=== PATIENT | male | born 1980 | race Two or more races ===

== ENCOUNTER 2019-12-10 17:25 | Inpatient (IN) | payer SELFPAY ==
[~2019-12-10] VITALS: Ht 172.7 cm; Wt 83.0 kg
[2019-12-10] MEDS ORDERED: Succinylcholine 20mg/ml 10ml vial ONE (17:57)
[2019-12-10] MEDS ORDERED: Etomidate 40mg/20ml Inj IV ONE (17:57)
[2019-12-10] MEDS ORDERED: Azithromycin 500 MG in NS 275 ML IV ONE (18:00)
[2019-12-10] MEDS ORDERED: cefTRIAXone 1 GM in NS 55 ML IVPB ONE (18:00)
--- NOTE | 2019-12-10 18:43 | NUR ---
ED Nurse Note: KATELYN VO- -COUSIN
[2019-12-10 18:49] LABS: INR 1.3 (0.9-1.1)
[2019-12-10 19:55] LABS: APPEARANCE,URINE CLEAR; BILIRUBIN, URINE NEGATIVE (NEGATIVE); GLUCOSE, URINE (UA) NEGATIVE (NEGATIVE); KETONES,URINE NEGATIVE (NEGATIVE); LEUKOCYTE ESTERASE ,URINE 1+ (NEGATIVE); NITRITE,URINE NEGATIVE (NEGATIVE); PH,URINE 5 (4.5-8.0); PROTEIN,URINE 2+ (NEGATIVE); UROBILINOGEN,URINE 4 MG/DL (0.0-1.0)
[2019-12-10 20:00] VITALS: BP_SYST 8; BP_SYST 88; BP_DIAS 65
--- NOTE | 2019-12-10 20:00 | NUR ---
ED Nurse Note: patient received in bed with respiratory distress. patient confused and restless; pulled out alarm security or surveillance monitor. removed clothing and changed into gown; attached to monitor. ermd and respiratory at bedside for intubation. ett 7.5 24cm at the lip; ac 16; tv 600; peep 10; fio2 100%. called radiology for imaging. suctioned 200 ml of blood; ermd aware. sedation initiated per ermd order. pt + 2 RASS; per ermd infusion set to 50mcg/kg/min; noted and carried out. all safety measures met. will continue to monitor.
[2019-12-10 20:11] LABS: COLOR,URINE YELLOW
--- NOTE | 2019-12-10 20:22 | Emergency Room Report ---
History of Present Illness General Chief Complaint: Dyspnea/Respdistress Source: Patient, Family Member, EMS Present Illness HPI Patient presents by paramedics for shortness of breath and confusion A bystander and which sounds to be possibly a neighbor saw the patient acting confused and appeared weak and paramedics summoned upon arrival the patient does appear confused Is able to have limited discussion given his shortness of breath and acute distress upon presentation I did contact the phone number provided for the patient's family the father did answer and we also spoke with translation He reports the patient has been sick for over the past 2 weeks Unknown regarding fever unknown regarding vomiting or diarrhea History of present illness is significantly limited Allergies: Coded Allergies: UNABLE TO ASSESS (Unverified , 12/10/19) COVID-19 Screening Contact w/high risk pt: No Recent Travel to affected area: No Experienced COVID-19 symptoms?: Yes COVID-19 symptoms experienced: Shortness of Breath, Cough, Flu-Like Symptoms Patient History Past Medical History: see triage record Reviewed Nursing Documentation: PMH: Agreed; PSxH: Agreed Nursing Documentation-PMH Past Medical History Deferred: No Family Available Past Medical History: Deferred Review of Systems All Other Systems: limited - Other than the ones mentioned in the history of present illness all others are reviewed however they do stay limited due to the patient's mental status Physical Exam Vital Signs Date Time Temp Pulse Resp B/P (MAP) Pulse Ox O2 Delivery O2 Flow Rate FiO2 12/10/19 17:28 96.3 130 35 112/60 (77) 94 Non-Rebreather 15.0 Sp02 EP Interpretation: reviewed, normal General Appearance: severe distress - Short of breath and confused Head: normocephalic, atraumatic Eyes: bilateral eye PERRL, bilateral eye EOMI ENT: other - Brown material dried crusting around the oral mucosa Neck: supple Respiratory: crackles - Tachypneic with respiratory distress and accessory muscle use Cardiovascular #1: tachycardia Gastrointestinal: non tender, soft Musculoskeletal: normal inspection Neurologic: responsive - Responsive with eyes open however it does appear confused pulling at IV lines and looking around the room Skin: other - What appears to be possible psoriasis in both lower legs Lymphatic: no adenopathy Procedures Critical Care Time Critical Care Time 70 minutes for multiple re-evaluations critical presentation concerning for acute decompensation and possible not including any procedural time Intubation Intubation : Consent: Emergent Intubation Method: orotracheal Tube Size (cm): 7.5 Medications: Etomidate, Succinylcholine Breath Sounds after Intubation: equal Post Intubation Xray: Yes Attempts: One Patient Tolerated: Well Complications: None Medical Decision Making Diagnostic Impression: Primary Impression: Respiratory failure Additional Impressions: Pneumonia COVID-19 virus infection ER Course Patient is a fairly complex patient with multiple differential to consideration including but not limited to cardiac cardiopulmonary and vascular emergencies given the patient's presentation covid-19 Also considered highly patient's x-ray does show concerning findings of bilateral patchy infiltrates Patient remained severely hypoxic Decision was made to intubate the patient for further ventilation Please refer to the intubation note for that Patient saturations have significantly improved Patient's initial x-ray after the intubation shows that the ET tube is somewhat high in the airway The ET tube is tied down at 24 cm This will be advanced and another x-ray taken X-ray shows ET tube about 2 cm above juan Patient continues admission in critical condition with poor prognosis Labs Test 12/10/19 17:28 12/10/19 17:45 12/10/19 19:30 12/10/19 21:00 Arterial Blood pH 7.334 (7.350-7.450) Arterial Blood Partial Pressure CO2 27.4 mmHg (35.0-45.0) Arterial Blood Partial Pressure O2 56.4 mmHg (75.0-100.0) Arterial Blood HCO3 14.3 mmol/L (22.0-26.0) Arterial Blood Oxygen Saturation 84.0 % (95-100) Arterial Blood Base Excess -10.1 (-2-2) Guzman Test Positive Prothrombin Time 13.8 SEC (9.30-11.50) Prothromb Time International Ratio 1.3 (0.9-1.1) Activated Partial Thromboplast Time 28 SEC (23-33) Sodium Level 128 MMOL/L (136-145) Potassium Level 4.9 MMOL/L (3.5-5.1) Chloride Level 90 MMOL/L (98-107) Carbon Dioxide Level 14 MMOL/L (21-32) Anion Gap 24 mmol/L (5-15) Blood Urea Nitrogen 90 mg/dL (7-18) Creatinine 2.6 MG/DL (0.55-1.30) Estimat Glomerular Filtration Rate 27.8 mL/min (>60) Glucose Level 1247 MG/DL (74-106) Lactic Acid Level 9.60 mmol/L (0.4-2.0) 4.70 mmol/L (0.66-2.22) Calcium Level 8.0 MG/DL (8.5-10.1) Total Bilirubin 2.4 MG/DL (0.2-1.0) Direct Bilirubin 1.6 MG/DL (0.0-0.3) Aspartate Amino Transf (AST/SGOT) 40 U/L (15-37) Alanine Aminotransferase (ALT/SGPT) 36 U/L (12-78) Alkaline Phosphatase 110 U/L (46-116) Total Creatine Kinase 184 U/L (26-308) Creatine Kinase MB 2.4 NG/ML (0.0-3.6) Creatine Kinase MB Relative Index 1.3 Troponin I 0.000 ng/mL (0.000-0.056) Pro-B-Type Natriuretic Peptide 328 pg/mL (0-125) Total Protein 7.4 G/DL (6.4-8.2) Albumin 2.5 G/DL (3.4-5.0) Globulin 4.9 g/dL Albumin/Globulin Ratio 0.5 (1.0-2.7) Triglycerides Level 329 MG/DL (30-150) Urine Color Yellow Urine Appearance Clear Urine pH 5 (4.5-8.0) Urine Specific [place] 1.005 (1.005-1.035) Urine Protein 2+ (NEGATIVE) Urine Glucose (UA) Negative (NEGATIVE) Urine Ketones Negative (NEGATIVE) Urine Blood 3+ (NEGATIVE) Urine Nitrite Negative (NEGATIVE) Urine Bilirubin Negative (NEGATIVE) Urine Urobilinogen 4 MG/DL (0.0-1.0) Urine Leukocyte Esterase 1+ (NEGATIVE) Urine RBC 30-40 /HPF (0 - 0) Urine WBC 2-4 /HPF (0 - 0) Urine Squamous Epithelial Cells None /LPF (NONE/OCC) Urine Bacteria Occasional /HPF (NONE) Urine Opiates Screen Negative (NEGATIVE) Urine Barbiturates Screen Negative (NEGATIVE) Phencyclidine (PCP) Screen Negative (NEGATIVE) Urine Amphetamines Screen Negative (NEGATIVE) Urine Benzodiazepines Screen Positive (NEGATIVE) Urine Cocaine Screen Negative (NEGATIVE) Urine Marijuana (THC) Screen Negative (NEGATIVE) White Blood Count 9.6 K/UL (4.8-10.8) Red Blood Count 3.04 M/UL (4.70-6.10) Hemoglobin 9.8 G/DL (14.2-18.0) Hematocrit 27.6 % (42.0-52.0) Mean Corpuscular Volume 91 FL (80-99) Mean Corpuscular Hemoglobin 32.3 PG (27.0-31.0) Mean Corpuscular Hemoglobin Concent 35.6 G/DL (32.0-36.0) Red Cell Distribution Width 15.0 % (11.6-14.8) Platelet Count 20 K/UL (150-450) Mean Platelet Volume 9.4 FL (6.5-10.1) Neutrophils (%) (Auto) % (45.0-75.0) Lymphocytes (%) (Auto) % (20.0-45.0) Monocytes (%) (Auto) % (1.0-10.0) Eosinophils (%) (Auto) % (0.0-3.0) Basophils (%) (Auto) % (0.0-2.0) Differential Total Cells Counted 100 Neutrophils % (Manual) 24 % (45-75) Lymphocytes % (Manual) 58 % (20-45) Monocytes % (Manual) 18 % (1-10) Eosinophils % (Manual) 0 % (0-3) Basophils % (Manual) 0 % (0-2) Band Neutrophils 0 % (0-8) Platelet Estimate Decreased Platelet Morphology Normal Hypochromasia 1+ Anisocytosis 1+ D-Dimer > 35.20 mg/L FEU Hemoglobin A1c 11.9 % (4.3-6.0) Test 12/10/19 22:05 12/11/19 05:54 12/11/19 08:02 12/11/19 08:40 Arterial Blood pH 7.246 (7.350-7.450) 7.420 (7.350-7.450) Arterial Blood Partial Pressure CO2 42.0 mmHg (35.0-45.0) 33.8 mmHg (35.0-45.0) Arterial Blood Partial Pressure O2 84.6 mmHg (75.0-100.0) 286.5 mmHg (75.0-100.0) Arterial Blood HCO3 17.8 mmol/L (22.0-26.0) 21.4 mmol/L (22.0-26.0) Arterial Blood Oxygen Saturation 92.4 % (95-100) 98.2 % (95-100) Arterial Blood Base Excess -8.9 (-2-2) -2.5 (-2-2) Guzman Test Positive Positive White Blood Count 8.4 K/UL (4.8-10.8) Red Blood Count 3.03 M/UL (4.70-6.10) Hemoglobin 9.6 G/DL (14.2-18.0) Hematocrit 25.7 % (42.0-52.0) Mean Corpuscular Volume 85 FL (80-99) Mean Corpuscular Hemoglobin 31.6 PG (27.0-31.0) Mean Corpuscular Hemoglobin Concent 37.2 G/DL (32.0-36.0) Red Cell Distribution Width 13.5 % (11.6-14.8) Platelet Count 8 K/UL (150-450) Mean Platelet Volume 14.9 FL (6.5-10.1) Neutrophils (%) (Auto) % (45.0-75.0) Lymphocytes (%) (Auto) % (20.0-45.0) Monocytes (%) (Auto) % (1.0-10.0) Eosinophils (%) (Auto) % (0.0-3.0) Basophils (%) (Auto) % (0.0-2.0) Differential Total Cells Counted 100 Neutrophils % (Manual) 15 % (45-75) Lymphocytes % (Manual) 47 % (20-45) Monocytes % (Manual) 16 % (1-10) Eosinophils % (Manual) 1 % (0-3) Basophils % (Manual) 0 % (0-2) Blast Cells % 21 % (0-0) Band Neutrophils 0 % (0-8) Other Cell Type See comment Platelet Estimate Decreased Platelet Morphology Normal Sodium Level 154 MMOL/L (136-145) Potassium Level 4.3 MMOL/L (3.5-5.1) Chloride Level 118 MMOL/L (98-107) Carbon Dioxide Level 22 MMOL/L (21-32) Anion Gap 14 mmol/L (5-15) Blood Urea Nitrogen 63 mg/dL (7-18) Creatinine 1.2 MG/DL (0.55-1.30) Estimat Glomerular Filtration Rate > 60 mL/min (>60) Glucose Level 141 MG/DL (74-106) Calcium Level 7.8 MG/DL (8.5-10.1) Total Bilirubin 1.0 MG/DL (0.2-1.0) Aspartate Amino Transf (AST/SGOT) 38 U/L (15-37) Alanine Aminotransferase (ALT/SGPT) 31 U/L (12-78) Alkaline Phosphatase 85 U/L (46-116) Total Protein 6.2 G/DL (6.4-8.2) Albumin 2.1 G/DL (3.4-5.0) Globulin 4.1 g/dL Albumin/Globulin Ratio 0.5 (1.0-2.7) Lactic Acid Level 2.10 mmol/L (0.4-2.0) Test 12/11/19 12:50 12/12/19 03:47 12/12/19 08:35 12/12/19 09:30 Reticulocyte Count 0.9 % (0.5-2.0) Sickle Cell Screen Negative (Negative) Prothrombin Time 12.1 SEC (9.30-11.50) Prothromb Time International Ratio 1.1 (0.9-1.1) Sodium Level 158 MMOL/L (136-145) 146 MMOL/L (136-145) Potassium Level 4.6 MMOL/L (3.5-5.1) 4.4 MMOL/L (3.5-5.1) Chloride Level 123 MMOL/L (98-107) 115 MMOL/L (98-107) Carbon Dioxide Level 19 MMOL/L (21-32) 22 MMOL/L (21-32) Anion Gap 16 mmol/L (5-15) 9 mmol/L (5-15) Blood Urea Nitrogen 54 mg/dL (7-18) 39 mg/dL (7-18) Creatinine 1.1 MG/DL (0.55-1.30) 1.1 MG/DL (0.55-1.30) Estimat Glomerular Filtration Rate > 60 mL/min (>60) > 60 mL/min (>60) Glucose Level 143 MG/DL (74-106) 317 MG/DL (74-106) Uric Acid 5.4 MG/DL (2.6-7.2) 2.4 MG/DL (2.6-7.2) Calcium Level 7.6 MG/DL (8.5-10.1) 8.0 MG/DL (8.5-10.1) Phosphorus Level 1.8 MG/DL (2.5-4.9) 3.0 MG/DL (2.5-4.9) Magnesium Level 2.9 MG/DL (1.8-2.4) 2.8 MG/DL (1.8-2.4) Iron Level 92 ug/dL (50-175) Total Iron Binding Capacity 100 ug/dL (250-450) Percent Iron Saturation 92 % (15-50) Unsaturated Iron Binding 8 ug/dL (112-346) Ferritin > 2000 NG/ML (8-388) Total Bilirubin 1.1 MG/DL (0.2-1.0) 1.7 MG/DL (0.2-1.0) Direct Bilirubin 0.0 MG/DL (0.0-0.3) 1.5 MG/DL (0.0-0.3) Gamma Glutamyl Transpeptidase 63 U/L (5-85) Aspartate Amino Transf (AST/SGOT) 40 U/L (15-37) 46 U/L (15-37) Alanine Aminotransferase (ALT/SGPT) 30 U/L (12-78) 30 U/L (12-78) Alkaline Phosphatase 75 U/L (46-116) 72 U/L (46-116) Lactate Dehydrogenase 979 U/L (81-234) Troponin I 0.033 ng/mL (0.000-0.056) C-Reactive Protein, Quantitative 41.8 mg/dL (0.00-0.90) Pro-B-Type Natriuretic Peptide 224 pg/mL (0-125) Total Protein 5.7 G/DL (6.4-8.2) 5.9 G/DL (6.4-8.2) Albumin 2.0 G/DL (3.4-5.0) 1.8 G/DL (3.4-5.0) Globulin 3.7 g/dL Albumin/Globulin Ratio 0.5 (1.0-2.7) Triglycerides Level 391 MG/DL (30-150) 432 MG/DL (30-150) Cholesterol Level 138 MG/DL (< 200) LDL Cholesterol 65 mg/dL (<100) HDL Cholesterol 12 MG/DL (40-60) Cholesterol/HDL Ratio 11.5 (3.3-4.4) Lipase 44 U/L (73-393) Vitamin B12 Level > 2000 PG/ML (193-986) Folate 4.7 NG/ML (8.6-58.9) Thyroid Stimulating Hormone (TSH) 0.562 uiU/mL (0.358-3.740) Hepatitis A IgM Antibody Negative (Negative) Hepatitis B Surface Antigen Negative (Negative) Hepatitis B Core IgM Antibody Negative (Negative) Hepatitis C Antibody <0.1 s/co ratio White Blood Count 6.5 K/UL (4.8-10.8) 5.7 K/UL (4.8-10.8) Red Blood Count 2.55 M/UL (4.70-6.10) 2.41 M/UL (4.70-6.10) Hemoglobin 8.2 G/DL (14.2-18.0) 7.7 G/DL (14.2-18.0) Hematocrit 22.5 % (42.0-52.0) 20.9 % (42.0-52.0) Mean Corpuscular Volume 88 FL (80-99) 87 FL (80-99) Mean Corpuscular Hemoglobin 32.2 PG (27.0-31.0) 31.8 PG (27.0-31.0) Mean Corpuscular Hemoglobin Concent 36.5 G/DL (32.0-36.0) 36.6 G/DL (32.0-36.0) Red Cell Distribution Width 14.5 % (11.6-14.8) 13.8 % (11.6-14.8) Platelet Count 8 K/UL (150-450) 22 K/UL (150-450) Mean Platelet Volume 15.4 FL (6.5-10.1) 5.4 FL (6.5-10.1) Neutrophils (%) (Auto) % (45.0-75.0) % (45.0-75.0) Lymphocytes (%) (Auto) % (20.0-45.0) % (20.0-45.0) Monocytes (%) (Auto) % (1.0-10.0) % (1.0-10.0) Eosinophils (%) (Auto) % (0.0-3.0) % (0.0-3.0) Basophils (%) (Auto) % (0.0-2.0) % (0.0-2.0) Differential Total Cells Counted 100 100 Neutrophils % (Manual) 23 % (45-75) 27 % (45-75) Lymphocytes % (Manual) 35 % (20-45) 33 % (20-45) Monocytes % (Manual) 17 % (1-10) 18 % (1-10) Eosinophils % (Manual) 0 % (0-3) 0 % (0-3) Basophils % (Manual) 0 % (0-2) 0 % (0-2) Blast Cells % 25 % (0-0) 22 % (0-0) Band Neutrophils 0 % (0-8) 0 % (0-8) Nucleated Red Blood Cells 4 /100 WBC Platelet Estimate Decreased Decreased Platelet Morphology Normal Normal Hypochromasia 2+ 3+ Anisocytosis 1+ 1+ Macrocytosis HIV (1&2) Antibody Rapid Negative (NEGATIVE) Spherocytes 2+ Arterial Blood pH 7.420 (7.350-7.450) Arterial Blood Partial Pressure CO2 33.0 mmHg (35.0-45.0) Arterial Blood Partial Pressure O2 72.0 mmHg (75.0-100.0) Arterial Blood HCO3 21.0 mmol/L (22.0-26.0) Arterial Blood Oxygen Saturation 92.5 % (95-100) Arterial Blood Base Excess -3.1 (-2-2) Guzman Test Positive Test 12/12/19 09:35 12/13/19 04:00 Fibrinogen 406 mg/dL (200-400) White Blood Count 16.0 K/UL (4.8-10.8) Red Blood Count 2.55 M/UL (4.70-6.10) Hemoglobin 8.0 G/DL (14.2-18.0) Hematocrit 22.8 % (42.0-52.0) Mean Corpuscular Volume 89 FL (80-99) Mean Corpuscular Hemoglobin 31.5 PG (27.0-31.0) Mean Corpuscular Hemoglobin Concent 35.2 G/DL (32.0-36.0) Red Cell Distribution Width 14.4 % (11.6-14.8) Platelet Count 22 K/UL (150-450) Mean Platelet Volume 8.2 FL (6.5-10.1) Neutrophils (%) (Auto) % (45.0-75.0) Lymphocytes (%) (Auto) % (20.0-45.0) Monocytes (%) (Auto) % (1.0-10.0) Eosinophils (%) (Auto) % (0.0-3.0) Basophils (%) (Auto) % (0.0-2.0) Differential Total Cells Counted 100 Neutrophils % (Manual) 13 % (45-75) Lymphocytes % (Manual) 28 % (20-45) Monocytes % (Manual) 27 % (1-10) Eosinophils % (Manual) 0 % (0-3) Basophils % (Manual) 0 % (0-2) Metamyelocytes % 2 % (0-0) Myelocytes % 2 % (0-0) Blast Cells % 27 % (0-0) Band Neutrophils 1 % (0-8) Platelet Estimate Decreased Platelet Morphology Normal Red Blood Cell Morphology Normal Sodium Level 144 MMOL/L (136-145) Potassium Level 4.9 MMOL/L (3.5-5.1) Chloride Level 112 MMOL/L (98-107) Carbon Dioxide Level 23 MMOL/L (21-32) Anion Gap 9 mmol/L (5-15) Blood Urea Nitrogen 36 mg/dL (7-18) Creatinine 1.2 MG/DL (0.55-1.30) Estimat Glomerular Filtration Rate > 60 mL/min (>60) Glucose Level 213 MG/DL (74-106) Calcium Level 8.0 MG/DL (8.5-10.1) Phosphorus Level 5.1 MG/DL (2.5-4.9) Magnesium Level 2.7 MG/DL (1.8-2.4) Total Bilirubin 1.7 MG/DL (0.2-1.0) Direct Bilirubin 1.6 MG/DL (0.0-0.3) Aspartate Amino Transf (AST/SGOT) 57 U/L (15-37) Alanine Aminotransferase (ALT/SGPT) 25 U/L (12-78) Alkaline Phosphatase 78 U/L (46-116) Lactate Dehydrogenase 868 U/L (81-234) C-Reactive Protein, Quantitative 133.0 mg/dL (0.00-0.90) Pro-B-Type Natriuretic Peptide 743 pg/mL (0-125) Total Protein 6.4 G/DL (6.4-8.2) Albumin 1.7 G/DL (3.4-5.0) Globulin 4.7 g/dL Albumin/Globulin Ratio 0.4 (1.0-2.7) Rhythm Strip Diag. Results EP Interpretation: yes Rate: 120 Rhythm: no PVC's, no ectopy, other - sinus Tach Chest X-Ray Diagnostic Results Chest X-Ray Diagnostic Results #1: Chest X-Ray Ordered: Yes # of Views/Limited/Complete: 1 View Indication: Shortness of Breath EP Interpretation: Yes Interpretation: no effusion, other - Bilateral patchy infiltrates heart size normal Impression: Other - Bilateral patchy infiltrates Electronically Signed by: Marc Benítez DO Chest X-Ray Diagnostic Results #2: Chest X-Ray Ordered: Yes # of Views/Limited/Complete: 1 View Indication: Other - Tube placement EP Interpretation: Yes Interpretation: other - ET tube approximately 2 cm above juan just below the clavicle worsening patchy infiltrates heart size normal Impression: Other - ET tube 2 cm above juan just below the clavicle Electronically Signed by: Marc Benítez DO Last Vital Signs Date Time Temp Pulse Resp B/P (MAP) Pulse Ox O2 Delivery O2 Flow Rate FiO2 12/10/19 17:28 96.3 130 35 112/60 (77) 94 Non-Rebreather 15.0 Status: improved Disposition: ADMITTED INPATIENT Condition: Critical Referrals: NOT CHOSEN IPA/,REFERRING (PCP) Marc Benítez DO Dec 10, 2019 20:22
[2019-12-10 20:36] LABS: ANION GAP 24 mmol/L (5-15); BLOOD UREA NITROGEN 90 mg/dL (7-18); CARBON DIOXIDE 14 MMOL/L (21-32); CHLORIDE 90 MMOL/L (98-107); CREATININE 2.6 MG/DL (0.55-1.30); POTASSIUM 4.9 MMOL/L (3.5-5.1); SODIUM 128 MMOL/L (136-145)
[2019-12-10 20:45] LABS: ALANINE AMINOTRANSFERASE 36 U/L (12-78); ALBUMIN 2.5 G/DL (3.4-5.0); ALBUMIN/GLOBULIN RATIO 0.5 (1.0-2.7); ALKALINE PHOSPHATASE 110 U/L (46-116); ASPARTATE AMINO TRANSFERASE 40 U/L (15-37); BILIRUBIN,TOTAL 2.4 MG/DL (0.2-1.0); CKMB 2.4 NG/ML (0.0-3.6); CREATINE KINASE 184 U/L (26-308)
[2019-12-10 20:46] LABS: BILIRUBIN,DIRECT 1.6 MG/DL (0.0-0.3)
--- NOTE | 2019-12-10 20:50 | Diagnostic Imaging Report ---
EXAM: XR Chest, 1 View CLINICAL HISTORY: SOB TECHNIQUE: Frontal view of the chest. COMPARISON: No relevant prior studies available. FINDINGS: Lungs: Reduced lung volumes and bilateral pulmonary infiltrates. Pleural space: Unremarkable. No pneumothorax. Heart: Unremarkable. No cardiomegaly. Mediastinum: Unremarkable. Bones/joints: No acute fracture. Tubes, lines and devices: Endotracheal tube at the level of the clavicular heads, roughly 5.5 cm above the juan. Other findings: Single view 12/10/19 at 2015. IMPRESSION: 1. Endotracheal tube at the level of the clavicular heads, roughly 5.5 cm above the juan. 2. Reduced lung volumes and bilateral pulmonary infiltrates. <MYCVCSECTION> Communications: 12/10/19 20:57 Call Nurse NEGRITO Martinez
[2019-12-10 21:00] VITALS: BP 127/67
--- NOTE | 2019-12-10 21:00 | NUR ---
ED Nurse Note: Adjusted ett per initial xray confirmation ett at 26cm; 2nd xray comfirmation ordered; radiology notified. vent setting remain the same. Accucheck bg critical high; notified ermd. administered insulin as prescribed. Initial labs hemolyzed; redrew labs; blood, MRSA VRE CRE swab collected; sent down to lab. belongings list completed.
[2019-12-10] MEDS ORDERED: Insulin Human Regular 100units/ml 3ml IV ONE (21:15)
[2019-12-10] MEDS ORDERED: Insulin Human Regular 100units/ml 3ml IV PRN ×2 (21:30)
[2019-12-10] MEDS ORDERED: Insulin Reg 100 units Premix 100 ML IV SCH (21:30)
[2019-12-10] MEDS ORDERED: Insulin Rate Change 1 Each MISC PRN (21:30)
--- NOTE | 2019-12-10 21:41 | Diagnostic Imaging Report ---
EXAM: XR Chest, 1 View CLINICAL HISTORY: TUBE PLCNC TECHNIQUE: Frontal view of the chest. COMPARISON: Earlier film FINDINGS: Lungs: Reduced lung volumes with extensive bilateral infiltrates. Pleural space: Unremarkable. No pneumothorax. Heart: Unremarkable. No cardiomegaly. Mediastinum: Unremarkable. Bones/joints: No acute fracture. Tubes, lines and devices: Endotracheal tube is approximately 2 cm above the juan. Other findings: Single view 12/10/19 at 2110. IMPRESSION: 1. Endotracheal tube is approximately 2 cm above the juan. 2. Reduced lung volumes with extensive bilateral infiltrates.
[2019-12-10 22:00] VITALS: BP 105/56
--- NOTE | 2019-12-10 22:00 | NUR ---
ED Nurse Note: 2nd confirmation states ett in accurate placement. accucheck bg critical high; notified ermd. initiated insulin drip as prescribed. patient rass -1; notified ermd. order received for ativan 2 mg ivp; noted and carried out. patient tolerating vent settings. vitals stable. all safety measures met. will continue to monitor.
[2019-12-10] MEDS ORDERED: Insulin Reg 100 units Premix 100 ML IVPB SCH (22:05)
[2019-12-10 22:25] LABS: HEMATOCRIT 27.6 % (42.0-52.0); HEMOGLOBIN 9.8 G/DL (14.2-18.0); MEAN CORPUSCULAR VOLUME 91 FL (80-99); PLATELET COUNT 20 K/UL (150-450); RED BLOOD COUNT 3.04 M/UL (4.70-6.10); WHITE BLOOD COUNT 9.6 K/UL (4.8-10.8)
[2019-12-10] MEDS ORDERED: LORazepam Inj 2mg/ml 1ml ONE (22:44)
[2019-12-10] MEDS ORDERED: LORazepam Inj 2mg/ml 1ml IV ONE (22:45)
[2019-12-10 23:00] VITALS: BP_SYST 104; BP_SYST 105; BP_DIAS 56; BP_DIAS 57
--- NOTE | 2019-12-10 23:00 | NUR ---
ED Nurse Note: received report from Deandre Lazaro RN. will resume care of patient.
--- NOTE | 2019-12-10 23:00 | NUR ---
ED Nurse Note: INSULIN DRIP AT 12UNIT/HR WITH ACCUCHECK BS 562. WILL CONTINUE TO MAINTAIN AT THIS RATE PER PROTOCOL.
--- NOTE | 2019-12-10 23:00 | NUR ---
HAND-OFF: Report given to NEGRITO CAPPS. Endorsed pending admission and sedation orders.
--- NOTE | 2019-12-10 23:00 | NUR ---
ED Nurse Note: RECEIVED ORDERS ADMITTING/BRIDING ORDERS FROM DR. TAYLOR. INFORMED DR. WILL CARRY OUT ORDERS
[2019-12-10 23:32] VITALS: BP 103/59
--- NOTE | 2019-12-10 23:32 | NUR ---
ED Nurse Note: second bag of propofol drip initiated. Pt BP 103/59 and RAAS score of -2 at start of drip. will continue to monitor patient.
[2019-12-10 23:47] VITALS: BP 114/55
--- NOTE | 2019-12-10 23:47 | NUR ---
ED Nurse Note: pt raas score remains at -2 and bp is maintained at 114/55. will continue drip rate at 50 mcg/kg/min
[2019-12-11] VITALS (62 sets, daily range): BP systolic 99–195; BP diastolic 40–99
--- NOTE | 2019-12-11 | NUR ---
ED Nurse Note: PT BS 556. WILL CONTINUE THE INSULIN DRIP AT 12UNIT/HR.
[2019-12-11] MEDS: Versed 50mg/D5W 100ml 100 ML IV SCH ×2 (00:08→23:05)
--- NOTE | 2019-12-11 00:08 | NUR ---
ED Nurse Note: VERSED DRIP INITIATED AT 1MG/HR. PROPOFOL DRIP TITRATED DOWN TO 25 MCG/KG/MIN. RAAS SCORE OF -2 AND BP OF 104/59 AT CHANGE OF RATE.
--- NOTE | 2019-12-11 00:38 | NUR ---
ED Nurse Note: PT IS TOLERATING PROPOFOL AT 25 MCG/KG/MIN AND VERSED 1MG/HR WITH RAAS SCORE OF -2 AND BP AT 100/57. WILL CONTINUE TO MONITOR PATIENT.
--- NOTE | 2019-12-11 01:00 | NUR ---
ED Nurse Note: PT BS 547. WILL MAINTAIN THE RATE AT 12UNIT/HR.
[2019-12-11] MEDS ORDERED: Insulin Human Regular 100units/ml 3ml IV PRN (01:15)
--- NOTE | 2019-12-11 01:50 | NUR ---
ED Nurse Note: GAVE REPORT TO ANIL MAHAN. ENDORSED CARE OF PATIENT.
--- NOTE | 2019-12-11 01:53 | NUR ---
ED Nurse Note: PT RAAS SCORE AT -2 WITH BP 114/58. WILL MAINTAIN PROPOFOL AT 25MCG/KG/MIN AND VERSED 1MG/HR
[2019-12-11] MEDS ORDERED: Insulin Rate Change 1 Each MISC PRN ×2 (02:00→04:30)
--- NOTE | 2019-12-11 02:00 | NUR ---
NURSE NOTES: pt admit from er pt sedated dep drip 25mcg /kg/hr and versed drip at 1mg/hr and insulin drip at 12unit with bs 560 pt oral intubated with o2 sat 100 0/0 temp 98.5 and reposition and suction
--- NOTE | 2019-12-11 02:00 | NUR ---
TRANSFER TO FLOOR: Patient transferred to [facility] via transport 19 protocol with propofol drip at 25mcg/kg/min, versed drip at 1mg/hr, insulin drip at 12 unit/hr in stable condition as ordered, per dr. Ly. RT was called for vent detachment. Pt was manually vented during transport in stable condition. Patient is AAOx0. Report given to Ethel MAHAN. Belongings sent with patient.
[2019-12-11] MEDS: Insulin Reg 100 units Premix 100 ML IVPB SCH ×2 (02:28→03:37)
[2019-12-11] MEDS: Insulin Human Regular 100units/ml 3ml IV PRN ×2 (02:30→03:22)
--- NOTE | 2019-12-11 04:00 | NUR ---
NURSE NOTES: complete bed bath oral care and back care done
[2019-12-11] MEDS ORDERED: Insulin Reg 100 units Premix 100 ML IVPB SCH (04:30)
--- NOTE | 2019-12-11 06:00 | NUR ---
NURSE NOTES: pt on insulin drip at 4unit with bs 157 algo r 3 and drip drip 50mcg/kg/hr and versed drip at 1mg/hr
[2019-12-11 07:54] LABS: HEMATOCRIT 25.7 % (42.0-52.0); HEMOGLOBIN 9.6 G/DL (14.2-18.0); MEAN CORPUSCULAR VOLUME 85 FL (80-99); RED BLOOD COUNT 3.03 M/UL (4.70-6.10); RED CELL DISTRIBUTION WIDTH 13.5 % (11.6-14.8); WHITE BLOOD COUNT 8.4 K/UL (4.8-10.8)
--- NOTE | 2019-12-11 08:01 | NUR ---
HAND-OFF: Report given to yogesh mcgill using sbar.
--- NOTE | 2019-12-11 08:02 | NUR ---
NURSE NOTES: Late entry: PT and report received from NEGRITO Carlson; PT received intubated ETT 7.5 @ 26 R-lip, AC 16, TV 600, 100%, peep 10; tachypnea respiratory rate; counselling psychologist shows ST; PT received on sedation to a RASS -2; PIV L-AC 18g infusing diprovan @ 50mcg/kg/min; R-AC 20g infusing versed @ 1mg/hr and insulin @ 4ml/hr; skin issues noted on abd/chest/legs; jarquin intact draining patent at lowest position, PT has L-NGT KUB results pending; received on bilateral soft wrist restraints. Will continue to monitor PT.
[2019-12-11 08:17] LABS: ALANINE AMINOTRANSFERASE 31 U/L (12-78); ALBUMIN 2.1 G/DL (3.4-5.0); ALBUMIN/GLOBULIN RATIO 0.5 (1.0-2.7); ALKALINE PHOSPHATASE 85 U/L (46-116); ANION GAP 14 mmol/L (5-15); ASPARTATE AMINO TRANSFERASE 38 U/L (15-37); BLOOD UREA NITROGEN 63 mg/dL (7-18); CALCIUM 7.8 MG/DL (8.5-10.1); CARBON DIOXIDE 22 MMOL/L (21-32); CHLORIDE 118 MMOL/L (98-107); CREATININE 1.2 MG/DL (0.55-1.30); POTASSIUM 4.3 MMOL/L (3.5-5.1); SODIUM 154 MMOL/L (136-145)
--- NOTE | 2019-12-11 08:25 | NUR ---
NURSE NOTES: Late entry: Actual administered 25ml Dextrose as prescribed, but eMAR scanned by mistake was documented as 50ml dextrose. Confirmed with PharmD to unadminister 50ml and notate it in PT notes. Will continue with plan of care for PT.
--- NOTE | 2019-12-11 08:38 | Diagnostic Imaging Report ---
Indication: Shortness of breath Technique: XRAY Chest 1v Comparison: None Findings: Extensive interstitial and patchy, peripheral based opacities are noted. Heart size within normal limits for AP technique. No radiographically appreciable pleural effusion or pneumothorax. Osseous structures demonstrate no acute abnormality. Impression: Extensive interstitial and patchy bilateral airspace opacities. Findings are concerning for multifocal pneumonia, including atypical/viral pneumonia. This corresponds with the preliminary interpretation of the treating ER clinician, as documented in the electronic medical record. Patient is being ruled out for novel COVID-19 virus, as documented in the electronic medical record
[2019-12-11] MEDS ORDERED: Hydroxychloroquine Fact Sheet MISC SCH (09:00)
[2019-12-11 09:04] LABS: PLATELET COUNT 8 K/UL (150-450)
--- NOTE | 2019-12-11 09:04 | Diagnostic Imaging Report ---
Indication: Nasogastric intubation. Check line position Technique: XRAY Abdomen 1v Comparison: None Findings: Single frontal view the abdomen was obtained. NG tube tip projects over the expected region of the stomach, satisfactory in position. Bowel gas pattern is nonspecific. No differential air-fluid levels seen to suggest small bowel obstruction. No evidence to suggest free intraperitoneal air however sensitivity in evaluation for such is limited without inclusion of an erect/standing view. No acute osseous abnormality. Question hepatomegaly. Airspace disease is partially visualized in the lower lungs. IMPRESSION: Satisfactory positioning of NG tube, the tip projecting over the expected region of the proximal stomach. Additional findings as above.
--- NOTE | 2019-12-11 09:31 | Consultation ---
Consult Note Consult Note I was asked to evaluate the patient at the request of Dr. Hawkins for fluid and electrolyte management, and renal failure Patient was seen at 7 AM in ICU room G Patient evaluated, discussed with the nurse Record reviewed Emergency room note: Chief Complaint: Dyspnea/Respdistress HPI Patient presents by paramedics for shortness of breath and confusion A bystander and which sounds to be possibly a neighbor saw the patient acting confused and appeared weak and paramedics summoned upon arrival the patient does appear confused Is able to have limited discussion given his shortness of breath and acute distress upon presentation ER physician did contact the phone number provided for the patient's family the father did answer and we also spoke with translation He reports the patient has been sick for over the past 2 weeks Unknown regarding fever unknown regarding vomiting or diarrhea History of present illness is significantly limited Allergies: UNABLE TO ASSESS (Unverified , 12/10/19) Contact w/high risk pt: No Recent Travel to affected area: No Experienced COVID-19 symptoms?: Yes COVID-19 symptoms experienced: Shortness of Breath, Cough, Flu-Like Symptoms Assessment/Plan Acute renal failure mainly dehydration due to osmotic diuresis Acute respiratory failure, intubated on mechanical ventilation Acute hyperglycemia, Acute metabolic and toxic encephalopathy Hyponatremia due to hyperglycemia Anemia Hypoalbuminemia, proteinuria High bilirubin on admission Pulmonary support Hydration, half-normal saline 100 cc an hour IV Protonix NG tube insertion Blood sugar and blood pressure check- Monitor renal parameters Per pulmonary and ID Anemia work-up Per orders Delvin Miller MD Dec 11, 2019 09:31
--- NOTE | 2019-12-11 09:36 | NUR ---
NURSE NOTES: MD Jerrica called; updates given that PT last BS 174, currently on algorithm 2, orders given to go into PT room Q2H for accucheck. KIERRA Brown made aware.
--- NOTE | 2019-12-11 09:43 | Consultation ---
History of Present Illness General Chief Complaint: Dyspnea/Respdistress Present Illness Allergies: Coded Allergies: UNABLE TO ASSESS (Unverified , 12/10/19) Patient History Healthcare decision maker Resuscitation status Advanced Directive on File Physical Exam Last 24 Hour Vital Signs Date Time Temp Pulse Resp B/P (MAP) Pulse Ox O2 Delivery O2 Flow Rate FiO2 12/11/19 08:11 18 141/70 Endotracheal Tube 100 12/11/19 07:25 113 20 50 12/11/19 07:00 111 27 108/53 100 Mechanical Ventilator 100 12/11/19 07:00 18 Mechanical Ventilator 100 12/11/19 07:00 20 112/45 Mechanical Ventilator 100.0 12/11/19 06:30 109 27 110/62 100 Mechanical Ventilator 100 12/11/19 06:30 110 28 12/11/19 06:00 111 28 101/52 100 Mechanical Ventilator 100 12/11/19 06:00 18 Mechanical Ventilator 100 12/11/19 06:00 22 110/52 Mechanical Ventilator 100 12/11/19 05:30 99.5 111 28 101/52 100 Mechanical Ventilator 100 12/11/19 05:00 111 27 100 12/11/19 05:00 111 28 101/52 100 Mechanical Ventilator 100 12/11/19 05:00 27 Mechanical Ventilator 100 12/11/19 05:00 27 109/57 Mechanical Ventilator 100 12/11/19 04:30 110 29 115/54 100 Mechanical Ventilator 100 12/11/19 04:00 100 12/11/19 04:00 98.9 110 30 112/54 100 Mechanical Ventilator 100 12/11/19 04:00 29 100 12/11/19 04:00 29 100 12/11/19 04:00 29 100 12/11/19 04:00 29 100 12/11/19 04:00 29 100 12/11/19 04:00 29 100 12/11/19 04:00 29 Mechanical Ventilator 100 12/11/19 04:00 29 100 12/11/19 04:00 29 100 12/11/19 04:00 29 114/51 Mechanical Ventilator 100 12/11/19 04:00 29 115/54 Mechanical Ventilator 100 12/11/19 04:00 29 115/54 Mechanical Ventilator 100 12/11/19 04:00 29 115/54 Mechanical Ventilator 100 12/11/19 04:00 29 115/54 Mechanical Ventilator 100 12/11/19 04:00 29 115/54 Mechanical Ventilator 100 12/11/19 04:00 29 115/54 Mechanical Ventilator 100 12/11/19 04:00 29 115/54 Mechanical Ventilator 100 12/11/19 04:00 29 115/54 Mechanical Ventilator 100 12/11/19 04:00 Mechanical Ventilator 100.0 12/11/19 04:00 105 12/11/19 03:30 108 29 125/58 100 Mechanical Ventilator 100 12/11/19 03:18 22 125/58 Mechanical Ventilator 100 12/11/19 03:18 26 125/58 Mechanical Ventilator 100 12/11/19 03:15 110 30 125/58 100 Mechanical Ventilator 100 12/11/19 03:03 26 128/71 Mechanical Ventilator 100 12/11/19 03:03 29 128/71 Mechanical Ventilator 100 12/11/19 03:00 108 29 128/71 100 Mechanical Ventilator 100 12/11/19 03:00 111 28 100 12/11/19 03:00 29 Mechanical Ventilator 100 12/11/19 03:00 29 Mechanical Ventilator 100 12/11/19 03:00 29 Mechanical Ventilator 100 12/11/19 03:00 29 Mechanical Ventilator 100 12/11/19 03:00 29 Mechanical Ventilator 100 12/11/19 03:00 29 Mechanical Ventilator 100 12/11/19 03:00 29 Mechanical Ventilator 100 12/11/19 03:00 29 Mechanical Ventilator 100 12/11/19 03:00 29 Mechanical Ventilator 100 12/11/19 03:00 29 125/58 Mechanical Ventilator 100 12/11/19 02:48 26 123/44 Mechanical Ventilator 100 12/11/19 02:48 27 123/44 Mechanical Ventilator 100 12/11/19 02:45 112 28 123/44 100 Mechanical Ventilator 100 12/11/19 02:33 26 123/44 Mechanical Ventilator 100 12/11/19 02:33 28 123/44 Mechanical Ventilator 100 12/11/19 02:02 98.4 112 28 123/44 100 Mechanical Ventilator 100 12/11/19 02:00 29 Mechanical Ventilator 100 12/11/19 02:00 29 Mechanical Ventilator 100 12/11/19 02:00 29 Mechanical Ventilator 100 12/11/19 02:00 29 Mechanical Ventilator 100 12/11/19 02:00 29 Mechanical Ventilator 100 12/11/19 02:00 29 Mechanical Ventilator 100 12/11/19 02:00 29 Mechanical Ventilator 100 12/11/19 02:00 29 Mechanical Ventilator 100 12/11/19 02:00 28 Mechanical Ventilator 100 12/11/19 02:00 98.8 81 28 114/58 98 Mechanical Ventilator 100 12/11/19 01:53 28 Mechanical Ventilator 100 12/11/19 01:53 28 114/58 Mechanical Ventilator 100 12/11/19 01:53 98.8 81 28 114/58 98 Mechanical Ventilator 100 12/11/19 01:11 105 30 Mechanical Ventilator 100 12/11/19 00:57 105 30 100 12/11/19 00:53 88 28 104/55 98 Mechanical Ventilator 100 12/11/19 00:53 28 Mechanical Ventilator 100 12/11/19 00:53 28 Mechanical Ventilator 100 12/11/19 00:53 28 Mechanical Ventilator 100 12/11/19 00:53 98.8 12/11/19 00:53 28 104/55 Mechanical Ventilator 100 12/11/19 00:53 28 104/55 Mechanical Ventilator 100 12/11/19 00:53 28 104/55 Mechanical Ventilator 100 12/11/19 00:38 28 Mechanical Ventilator 100 12/11/19 00:38 28 Mechanical Ventilator 100 12/11/19 00:38 28 Mechanical Ventilator 100 12/11/19 00:38 28 100/57 Mechanical Ventilator 100 12/11/19 00:38 28 100/57 Mechanical Ventilator 100 12/11/19 00:38 28 100/57 Mechanical Ventilator 100 12/11/19 00:38 81 28 100/57 98 Mechanical Ventilator 100 12/11/19 00:34 85 26 102/58 98 Mechanical Ventilator 100 12/11/19 00:23 84 26 102/58 98 Mechanical Ventilator 15.0 100 12/11/19 00:23 26 Mechanical Ventilator 12/11/19 00:23 25 102/58 Mechanical Ventilator 12/11/19 00:09 101 28 100 12/11/19 00:08 87 26 104/59 98 Mechanical Ventilator 100 12/11/19 00:08 27 Mechanical Ventilator 12/11/19 00:08 26 104/59 Mechanical Ventilator 12/11/19 00:02 91 25 99/56 98 Mechanical Ventilator 15.0 100 12/11/19 00:02 25 99/56 Mechanical Ventilator 12/10/19 23:47 26 114/55 Mechanical Ventilator 12/10/19 23:47 89 26 114/55 98 Mechanical Ventilator 15.0 100 12/10/19 23:32 20 103/59 Mechanical Ventilator 12/10/19 23:32 98.5 92 20 103/59 98 Mechanical Ventilator 100 12/10/19 23:00 100 12/10/19 23:00 98.9 104 27 104/57 98 Mechanical Ventilator 100 12/10/19 22:45 27 106/50 Mechanical Ventilator 100 12/10/19 22:30 27 131/99 Mechanical Ventilator 100 12/10/19 22:15 27 123/69 Mechanical Ventilator 100 12/10/19 22:00 26 105/56 Mechanical Ventilator 100 12/10/19 22:00 98.9 111 27 105/56 98 Mechanical Ventilator 100 12/10/19 21:45 27 111/60 Mechanical Ventilator 100 12/10/19 21:30 27 111/42 Mechanical Ventilator 100 12/10/19 21:15 28 100/82 Mechanical Ventilator 100 12/10/19 21:00 98.9 117 27 127/67 96 Mechanical Ventilator 100 12/10/19 21:00 25 127/67 Mechanical Ventilator 100 12/10/19 20:45 26 122/59 Mechanical Ventilator 100 12/10/19 20:30 112 25 100 12/10/19 20:30 112 25 98 Mechanical Ventilator 100 12/10/19 20:30 30 88/57 Mechanical Ventilator 100 12/10/19 20:00 118 25 Non-Rebreather 15.0 12/10/19 20:00 98.9 118 25 88/65 96 Non-Rebreather 15.0 12/10/19 20:00 100 12/10/19 17:28 96.3 130 35 112/60 (77) 94 Non-Rebreather 15.0 Intake and Output 12/10/19 12/11/19 19:00 07:00 Intake Total 214.716 ml Output Total 951 ml Balance -736.284 ml Intake Oral 0 ml IV Total 214.716 ml Output Urine Total 951 ml Laboratory Tests Test 12/10/19 17:28 12/10/19 17:45 12/10/19 19:30 12/10/19 21:00 Arterial Blood pH 7.334 (7.350-7.450) Arterial Blood Partial Pressure CO2 27.4 mmHg (35.0-45.0) L Arterial Blood Partial Pressure O2 56.4 mmHg (75.0-100.0) L Arterial Blood HCO3 14.3 mmol/L (22.0-26.0) *L Arterial Blood Oxygen Saturation 84.0 % (95-100) *L Arterial Blood Base Excess -10.1 (-2-2) *L Guzman Test Positive Prothrombin Time 13.8 SEC (9.30-11.50) H Prothromb Time International Ratio 1.3 (0.9-1.1) H Activated Partial Thromboplast Time 28 SEC (23-33) Sodium Level 128 MMOL/L (136-145) L Potassium Level 4.9 MMOL/L (3.5-5.1) Chloride Level 90 MMOL/L (98-107) L Carbon Dioxide Level 14 MMOL/L (21-32) L Anion Gap 24 mmol/L (5-15) H Blood Urea Nitrogen 90 mg/dL (7-18) H Creatinine 2.6 MG/DL (0.55-1.30) H Estimat Glomerular Filtration Rate 27.8 mL/min (>60) Glucose Level 1247 MG/DL (74-106) *H Lactic Acid Level 9.60 mmol/L (0.4-2.0) H 4.70 mmol/L (0.66-2.22) H Calcium Level 8.0 MG/DL (8.5-10.1) L Total Bilirubin 2.4 MG/DL (0.2-1.0) H Direct Bilirubin 1.6 MG/DL (0.0-0.3) H Aspartate Amino Transf (AST/SGOT) 40 U/L (15-37) H Alanine Aminotransferase (ALT/SGPT) 36 U/L (12-78) Alkaline Phosphatase 110 U/L (46-116) Total Creatine Kinase 184 U/L (26-308) Creatine Kinase MB 2.4 NG/ML (0.0-3.6) Creatine Kinase MB Relative Index 1.3 Troponin I 0.000 ng/mL (0.000-0.056) Pro-B-Type Natriuretic Peptide 328 pg/mL (0-125) H Total Protein 7.4 G/DL (6.4-8.2) Albumin 2.5 G/DL (3.4-5.0) L Globulin 4.9 g/dL Albumin/Globulin Ratio 0.5 (1.0-2.7) L Triglycerides Level 329 MG/DL (30-150) H Urine Color Yellow Urine Appearance Clear Urine pH 5 (4.5-8.0) Urine Specific [place] 1.005 (1.005-1.035) Urine Protein 2+ (NEGATIVE) H Urine Glucose (UA) Negative (NEGATIVE) Urine Ketones Negative (NEGATIVE) Urine Blood 3+ (NEGATIVE) H Urine Nitrite Negative (NEGATIVE) Urine Bilirubin Negative (NEGATIVE) Urine Urobilinogen 4 MG/DL (0.0-1.0) H Urine Leukocyte Esterase 1+ (NEGATIVE) H Urine RBC 30-40 /HPF (0 - 0) H Urine WBC 2-4 /HPF (0 - 0) Urine Squamous Epithelial Cells None /LPF (NONE/OCC) Urine Bacteria Occasional /HPF (NONE) Urine Opiates Screen Negative (NEGATIVE) Urine Barbiturates Screen Negative (NEGATIVE) Phencyclidine (PCP) Screen Negative (NEGATIVE) Urine Amphetamines Screen Negative (NEGATIVE) Urine Benzodiazepines Screen Positive (NEGATIVE) H Urine Cocaine Screen Negative (NEGATIVE) Urine Marijuana (THC) Screen Negative (NEGATIVE) White Blood Count 9.6 K/UL (4.8-10.8) Red Blood Count 3.04 M/UL (4.70-6.10) L Hemoglobin 9.8 G/DL (14.2-18.0) L Hematocrit 27.6 % (42.0-52.0) L Mean Corpuscular Volume 91 FL (80-99) Mean Corpuscular Hemoglobin 32.3 PG (27.0-31.0) H Mean Corpuscular Hemoglobin Concent 35.6 G/DL (32.0-36.0) Red Cell Distribution Width 15.0 % (11.6-14.8) H Platelet Count 20 K/UL (150-450) L Mean Platelet Volume 9.4 FL (6.5-10.1) Neutrophils (%) (Auto) % (45.0-75.0) Lymphocytes (%) (Auto) % (20.0-45.0) Monocytes (%) (Auto) % (1.0-10.0) Eosinophils (%) (Auto) % (0.0-3.0) Basophils (%) (Auto) % (0.0-2.0) Differential Total Cells Counted 100 Neutrophils % (Manual) 24 % (45-75) L Lymphocytes % (Manual) 58 % (20-45) H Monocytes % (Manual) 18 % (1-10) H Eosinophils % (Manual) 0 % (0-3) Basophils % (Manual) 0 % (0-2) Band Neutrophils 0 % (0-8) Platelet Estimate Decreased L Platelet Morphology Normal Hypochromasia 1+ Anisocytosis 1+ D-Dimer > 35.20 mg/L FEU Hemoglobin A1c 11.9 % (4.3-6.0) H Test 12/10/19 22:05 12/11/19 05:54 12/11/19 08:02 12/11/19 08:40 Arterial Blood pH 7.246 (7.350-7.450) 7.420 (7.350-7.450) Arterial Blood Partial Pressure CO2 42.0 mmHg (35.0-45.0) 33.8 mmHg (35.0-45.0) L Arterial Blood Partial Pressure O2 84.6 mmHg (75.0-100.0) 286.5 mmHg (75.0-100.0) H Arterial Blood HCO3 17.8 mmol/L (22.0-26.0) *L 21.4 mmol/L (22.0-26.0) L Arterial Blood Oxygen Saturation 92.4 % (95-100) L 98.2 % (95-100) Arterial Blood Base Excess -8.9 (-2-2) L -2.5 (-2-2) L Guzman Test Positive Positive White Blood Count 8.4 K/UL (4.8-10.8) Red Blood Count 3.03 M/UL (4.70-6.10) L Hemoglobin 9.6 G/DL (14.2-18.0) L Hematocrit 25.7 % (42.0-52.0) L Mean Corpuscular Volume 85 FL (80-99) Mean Corpuscular Hemoglobin 31.6 PG (27.0-31.0) H Mean Corpuscular Hemoglobin Concent 37.2 G/DL (32.0-36.0) H Red Cell Distribution Width 13.5 % (11.6-14.8) Platelet Count 8 K/UL (150-450) #*L Mean Platelet Volume 14.9 FL (6.5-10.1) H Neutrophils (%) (Auto) % (45.0-75.0) Lymphocytes (%) (Auto) % (20.0-45.0) Monocytes (%) (Auto) % (1.0-10.0) Eosinophils (%) (Auto) % (0.0-3.0) Basophils (%) (Auto) % (0.0-2.0) Neutrophils % (Manual) Pending Lymphocytes % (Manual) Pending Platelet Estimate Pending Platelet Morphology Pending Sodium Level 154 MMOL/L (136-145) #H Potassium Level 4.3 MMOL/L (3.5-5.1) Chloride Level 118 MMOL/L (98-107) H Carbon Dioxide Level 22 MMOL/L (21-32) Anion Gap 14 mmol/L (5-15) Blood Urea Nitrogen 63 mg/dL (7-18) H Creatinine 1.2 MG/DL (0.55-1.30) # Estimat Glomerular Filtration Rate > 60 mL/min (>60) Glucose Level 141 MG/DL (74-106) #H Calcium Level 7.8 MG/DL (8.5-10.1) L Total Bilirubin 1.0 MG/DL (0.2-1.0) Aspartate Amino Transf (AST/SGOT) 38 U/L (15-37) H Alanine Aminotransferase (ALT/SGPT) 31 U/L (12-78) Alkaline Phosphatase 85 U/L (46-116) Total Protein 6.2 G/DL (6.4-8.2) L Albumin 2.1 G/DL (3.4-5.0) L Globulin 4.1 g/dL Albumin/Globulin Ratio 0.5 (1.0-2.7) L Lactic Acid Level 2.10 mmol/L (0.4-2.0) H Microbiology Date/Time Source Procedure Growth Status 12/10/19 17:50 Nasal Nares - Final Complete 12/10/19 17:50 Nasal Nares - Final Complete Height (Feet): 5 Height (Inches): 8.00 Weight (Pounds): 182 Medications Current Medications Medications (Trade) Dose Ordered Sig/Dariana Route PRN Reason Start Time Stop Time Status Last Admin Dose Admin Ceftriaxone Sodium 2 gm/ Sodium Chloride 55 ml @ 110 mls/hr Q24H IVPB 12/11/19 10:00 12/18/19 09:59 Dextrose (Dextrose 50%) 25 ml Q30M PRN IV HYPOGLYCEMIA 12/11/19 01:15 03/10/20 01:14 Dextrose (Dextrose 50%) 50 ml Q30M PRN IV HYPOGLYCEMIA 12/11/19 01:15 03/10/20 01:14 12/11/19 08:25 Hydroxychloroquine Sulfate (Plaquenil) 200 mg BID ORAL 12/12/19 09:00 12/15/19 18:01 Hydroxychloroquine Sulfate (Plaquenil) 400 mg BID ORAL 12/11/19 09:00 12/11/19 18:01 Insulin Human (Reg)/Sodium Chloride 100 ml @ 0 mls/hr Q24H IVPB 12/11/19 04:30 03/10/20 04:29 12/11/19 05:28 Insulin Human Regular (NovoLIN R) 5 units PRN PRN IV BS 200-299 12/11/19 01:15 03/10/20 01:14 Insulin Human Regular (NovoLIN R) 10 units PRN PRN IV BS=>300 12/11/19 01:15 03/10/20 01:14 12/11/19 03:22 Midazolam HCl 100 ml @ 0 mls/hr Q24H IV 12/11/19 00:00 12/18/19 00:00 12/11/19 00:08 Miscellaneous Medication (Insulin Rate Change) 1 ea PRN PRN MISC Hyperglycemia 12/11/19 04:30 03/10/20 04:29 Miscellaneous Medication (Plaquenil Fact Sheet) 1 ea ONCE MISC 12/11/19 09:00 12/11/19 10:00 Pantoprazole (Protonix) 40 mg EVERY 12 HOURS IVP 12/11/19 09:45 01/10/20 09:44 UNV Propofol 100 ml @ 0 mls/hr Q24H IV 12/11/19 00:00 12/13/19 00:00 12/11/19 08:11 Sodium Chloride 1,000 ml @ 100 mls/hr Q10H IV 12/11/19 10:00 01/10/20 09:59 Assessment/Plan Assessment/Plan: Hematology Consultation REQ : Marc Doyle RFC: Low platelets and ANEMIA, Coagulopathy DOS: 12/11/2019 HPI Patient presents by paramedics for shortness of breath and confusion A bystander and which sounds to be possibly a neighbor saw the patient acting confused and appeared weak and paramedics summoned upon arrival the patient does appear confused Is able to have limited discussion given his shortness of breath and acute distress upon presentation He reports the patient has been sick for over the past 2 weeks Unknown regarding fever unknown regarding vomiting or diarrhea I saw him in the icu, plt was from 20-->8, patient is intubated and difficult to interview. History of present illness is significantly limited : Coded Allergies: UNABLE TO ASSESS (Unverified , 12/10/19) COVID-19 Screening Contact w/high risk pt: No Recent Travel to affected area: No Experienced COVID-19 symptoms?: Yes COVID-19 symptoms experienced: Shortness of Breath, Cough, Flu-Like Symptoms Patient History Past Medical History: see triage record Reviewed Nursing Documentation: PMH: Agreed; PSxH: Agreed Nursing Documentation-PMH Past Medical History Deferred: No Family Available Past Medical History: Deferred Review of Systems All Other Systems: limited - Other than the ones mentioned in the history of present illness all others are reviewed however they do stay limited due to the patient's mental status Physical Exam: Vitals: reviewed General: NAD HEENT: nc, at Neck: supple Chest: clear breath sounds bilaterally +intubated Cardiovascular: RRR, no s3, s4 Abdomen: soft, nontender, nd Extremities: no cce, normal range of motion Neuro: ++confused Labs; noted Imaging; reviewed Assessment and Recs # Thrombocytopenia - potential causes multifactorial, evaluate liver and viral etiologies to begin, also could be related to underlying medications patient has received. In this case, query ETOH, DRUG ABUSE< COVID, also other possibilities are a cause, also with coagulopathy --> Hep panel and HIV ordered --> US abd to evaluate for cirrhosis and hsm ordered --> Peripheral smear ordered to evaluate for blasts /schistocytes --> abx and other meds have been reviewed --> ok for ppx if plt >50k w/ either heparin or lovenox --> Transfuse if Plt < 20k and fever, or if Plt < 10k without fever --> DDimer is high++ --> with blasts on peripheral smear, have dw pathology and pending a FLOW CYTOMETRY # Anemia of chronic disease due to underlying chronic medical issues, multifactorial v Gi bleed --> Anemia workup has been ordered, rule out gi bleed --> No evidence of hemolysis is noted, peripheral smear has been reviewed. --> Hgb goal >7. Transfuse prn. --> Epogen or iron at this time is not particularly indicated --> Medications have been reviewed --> low threshold for gi evaluation in case has occult + # Coagulopathy may be due to sepsis/dic --> monitor closely --> vit k and ffp as needed to correct # Respiratory failure --> s/p intubation # Pneumonia --> abx on bcoard --> r/o covid # Severe hypoxemia --> s/p ibtubation # Acute metabolic and toxic encephalopathy # Hyponatremia due to hyperglycemia # Transaminitis # Dvt ppx scds The timing of this note does not necessarily reflect the time of the patient was seen. Greatly appreciate consultation. Nicolás Guerrero MD Dec 11, 2019 09:42
--- NOTE | 2019-12-11 09:52 | NUR ---
AUTOMOTIVE HEAVY MECHANIC NOTE Pt has admitted to ICU on 12/11/2019. Per chart review, pt is intubated and A&O 0x. Pt's father Arnel Leon is monolingual [place]. SW spoke to Arnel Leon [phone] w/ green lumber grader Jose #[phone] and obtained information. Pt resides w/ his family at [address] [place] [address]. Pt is single, never and has no children. Pt does not have AD/POLST. Pt's father will be the decision maker if pt cannot make one. Pt's father is expressing full code. Other emergency contact is pt's cousin, Veronica Ovalle (bilingual [place]) [phone]. SW to F/U as needed.
--- NOTE | 2019-12-11 10:02 | NUR ---
NURSE NOTES: ST Judith; helped with translation, spoke with PT father, father gave consent to put PT cousin Veronica Ovalle [phone] on PT facesheet/contact/give consent.
[2019-12-11] MEDS: Pantoprazole Inj IVP SCH ×2 (10:13→21:53)
[2019-12-11] MEDS: cefTRIAXone 2 GM in NS 55 ML IVPB SCH (10:13)
--- NOTE | 2019-12-11 10:26 | NUR ---
CASE MANAGEMENT: REVIEW 39 YEAR OLD MALE BIBA FROM HOME CC: SOB . COUGH . FLU LIKE SYMPTOMS SI: RENAL FAILURE . RESP FAILURE . PNA . COVID-19 R/O T 96.3 HR 130 RR 35 BP 88/57 SAT 96% MECH/VENT FIO2 100% H/H 9.8/27.[address] 20 NA 128 BUN 90 CR 2.6 GLUCOSE 1247 BNP 328 ABG: PH 7.334 PCO2 27.4 PO2 56.4 HCO3 14.3 O2 SAT 84.0 BASE -10.1 SICKLE CELL SCREEN PENDING HEP PANEL PENDING IS: NS IVF BOLUS X1 PROPOFOL IV X1 AZITHROMYCIN IV X1 NOVOLIN R 16UNITS IV X1 ATIVAN 2MG IV X1 NPO NGT INSERTION PATIENT ADMITTED TO ICU 12/10/2019 DCP: PATIENT IS FROM HOME
--- NOTE | 2019-12-11 10:47 | NUR ---
RADIOLOGY DEPT, ABDOMEN X-RAY FOR NGT COMPLETED.-P.DYE
--- NOTE | 2019-12-11 10:48 | Cardiology Progress Note ---
Assessment/Plan Assessment/Plan I was asked by Dr. Hawkins to manage sinus tachycardia in this patient with severe hypoxemia suspected COVID-19 infection. The patient is seen and examined , full consult note is dictated. A/P: 1. Sinus tach likely due to underlying hypoxemia due to most likely COVID-19 infection. Treat pneumonia, pulmonary toilet, ID and pulmonary recommendations. 2. No active cardiac disease. 3. Initial labs drawn in ED on 12/09 may be erroneous not not belong to this patient. Will contact lab department. Objective Last 24 Hour Vital Signs Date Time Temp Pulse Resp B/P (MAP) Pulse Ox O2 Delivery O2 Flow Rate FiO2 12/11/19 08:11 18 141/70 Endotracheal Tube 100 12/11/19 07:25 113 20 50 12/11/19 07:00 111 27 108/53 100 Mechanical Ventilator 100 12/11/19 07:00 18 Mechanical Ventilator 100 12/11/19 07:00 20 112/45 Mechanical Ventilator 100.0 12/11/19 06:30 109 27 110/62 100 Mechanical Ventilator 100 12/11/19 06:30 110 28 12/11/19 06:00 111 28 101/52 100 Mechanical Ventilator 100 12/11/19 06:00 18 Mechanical Ventilator 100 12/11/19 06:00 22 110/52 Mechanical Ventilator 100 12/11/19 05:30 99.5 111 28 101/52 100 Mechanical Ventilator 100 12/11/19 05:00 111 27 100 12/11/19 05:00 111 28 101/52 100 Mechanical Ventilator 100 12/11/19 05:00 27 Mechanical Ventilator 100 12/11/19 05:00 27 109/57 Mechanical Ventilator 100 12/11/19 04:30 110 29 115/54 100 Mechanical Ventilator 100 12/11/19 04:00 100 12/11/19 04:00 98.9 110 30 112/54 100 Mechanical Ventilator 100 12/11/19 04:00 29 100 12/11/19 04:00 29 100 12/11/19 04:00 29 100 12/11/19 04:00 29 100 12/11/19 04:00 29 100 12/11/19 04:00 29 100 12/11/19 04:00 29 Mechanical Ventilator 100 12/11/19 04:00 29 100 12/11/19 04:00 29 100 12/11/19 04:00 29 114/51 Mechanical Ventilator 100 12/11/19 04:00 29 115/54 Mechanical Ventilator 100 12/11/19 04:00 29 115/54 Mechanical Ventilator 100 12/11/19 04:00 29 115/54 Mechanical Ventilator 100 12/11/19 04:00 29 115/54 Mechanical Ventilator 100 12/11/19 04:00 29 115/54 Mechanical Ventilator 100 12/11/19 04:00 29 115/54 Mechanical Ventilator 100 12/11/19 04:00 29 115/54 Mechanical Ventilator 100 12/11/19 04:00 29 115/54 Mechanical Ventilator 100 12/11/19 04:00 Mechanical Ventilator 100.0 12/11/19 04:00 105 12/11/19 03:30 108 29 125/58 100 Mechanical Ventilator 100 12/11/19 03:18 22 125/58 Mechanical Ventilator 100 12/11/19 03:18 26 125/58 Mechanical Ventilator 100 12/11/19 03:15 110 30 125/58 100 Mechanical Ventilator 100 12/11/19 03:03 26 128/71 Mechanical Ventilator 100 12/11/19 03:03 29 128/71 Mechanical Ventilator 100 12/11/19 03:00 108 29 128/71 100 Mechanical Ventilator 100 12/11/19 03:00 111 28 100 12/11/19 03:00 29 Mechanical Ventilator 100 12/11/19 03:00 29 Mechanical Ventilator 100 12/11/19 03:00 29 Mechanical Ventilator 100 12/11/19 03:00 29 Mechanical Ventilator 100 12/11/19 03:00 29 Mechanical Ventilator 100 12/11/19 03:00 29 Mechanical Ventilator 100 12/11/19 03:00 29 Mechanical Ventilator 100 12/11/19 03:00 29 Mechanical Ventilator 100 12/11/19 03:00 29 Mechanical Ventilator 100 12/11/19 03:00 29 125/58 Mechanical Ventilator 100 12/11/19 02:48 26 123/44 Mechanical Ventilator 100 12/11/19 02:48 27 123/44 Mechanical Ventilator 100 12/11/19 02:45 112 28 123/44 100 Mechanical Ventilator 100 12/11/19 02:33 26 123/44 Mechanical Ventilator 100 12/11/19 02:33 28 123/44 Mechanical Ventilator 100 12/11/19 02:02 98.4 112 28 123/44 100 Mechanical Ventilator 100 12/11/19 02:00 29 Mechanical Ventilator 100 12/11/19 02:00 29 Mechanical Ventilator 100 12/11/19 02:00 29 Mechanical Ventilator 100 12/11/19 02:00 29 Mechanical Ventilator 100 12/11/19 02:00 29 Mechanical Ventilator 100 12/11/19 02:00 29 Mechanical Ventilator 100 12/11/19 02:00 29 Mechanical Ventilator 100 12/11/19 02:00 29 Mechanical Ventilator 100 12/11/19 02:00 28 Mechanical Ventilator 100 12/11/19 02:00 98.8 81 28 114/58 98 Mechanical Ventilator 100 12/11/19 01:53 28 Mechanical Ventilator 100 12/11/19 01:53 28 114/58 Mechanical Ventilator 100 12/11/19 01:53 98.8 81 28 114/58 98 Mechanical Ventilator 100 12/11/19 01:11 105 30 Mechanical Ventilator 100 12/11/19 00:57 105 30 100 12/11/19 00:53 88 28 104/55 98 Mechanical Ventilator 100 12/11/19 00:53 28 Mechanical Ventilator 100 12/11/19 00:53 28 Mechanical Ventilator 100 12/11/19 00:53 28 Mechanical Ventilator 100 12/11/19 00:53 98.8 12/11/19 00:53 28 104/55 Mechanical Ventilator 100 12/11/19 00:53 28 104/55 Mechanical Ventilator 100 12/11/19 00:53 28 104/55 Mechanical Ventilator 100 12/11/19 00:38 28 Mechanical Ventilator 100 12/11/19 00:38 28 Mechanical Ventilator 100 12/11/19 00:38 28 Mechanical Ventilator 100 12/11/19 00:38 28 100/57 Mechanical Ventilator 100 12/11/19 00:38 28 100/57 Mechanical Ventilator 100 12/11/19 00:38 28 100/57 Mechanical Ventilator 100 12/11/19 00:38 81 28 100/57 98 Mechanical Ventilator 100 12/11/19 00:34 85 26 102/58 98 Mechanical Ventilator 100 12/11/19 00:23 84 26 102/58 98 Mechanical Ventilator 15.0 100 12/11/19 00:23 26 Mechanical Ventilator 12/11/19 00:23 25 102/58 Mechanical Ventilator 12/11/19 00:09 101 28 100 12/11/19 00:08 87 26 104/59 98 Mechanical Ventilator 100 12/11/19 00:08 27 Mechanical Ventilator 12/11/19 00:08 26 104/59 Mechanical Ventilator 12/11/19 00:02 91 25 99/56 98 Mechanical Ventilator 15.0 100 12/11/19 00:02 25 99/56 Mechanical Ventilator 12/10/19 23:47 26 114/55 Mechanical Ventilator 12/10/19 23:47 89 26 114/55 98 Mechanical Ventilator 15.0 100 12/10/19 23:32 20 103/59 Mechanical Ventilator 12/10/19 23:32 98.5 92 20 103/59 98 Mechanical Ventilator 100 12/10/19 23:00 100 12/10/19 23:00 98.9 104 27 104/57 98 Mechanical Ventilator 100 12/10/19 22:45 27 106/50 Mechanical Ventilator 100 12/10/19 22:30 27 131/99 Mechanical Ventilator 100 12/10/19 22:15 27 123/69 Mechanical Ventilator 100 12/10/19 22:00 26 105/56 Mechanical Ventilator 100 12/10/19 22:00 98.9 111 27 105/56 98 Mechanical Ventilator 100 12/10/19 21:45 27 111/60 Mechanical Ventilator 100 12/10/19 21:30 27 111/42 Mechanical Ventilator 100 12/10/19 21:15 28 100/82 Mechanical Ventilator 100 12/10/19 21:00 98.9 117 27 127/67 96 Mechanical Ventilator 100 12/10/19 21:00 25 127/67 Mechanical Ventilator 100 12/10/19 20:45 26 122/59 Mechanical Ventilator 100 12/10/19 20:30 112 25 100 12/10/19 20:30 112 25 98 Mechanical Ventilator 100 12/10/19 20:30 30 88/57 Mechanical Ventilator 100 12/10/19 20:00 118 25 Non-Rebreather 15.0 12/10/19 20:00 98.9 118 25 88/65 96 Non-Rebreather 15.0 12/10/19 20:00 100 12/10/19 17:28 96.3 130 35 112/60 (77) 94 Non-Rebreather 15.0 Intake and Output 12/10/19 12/11/19 19:00 07:00 Intake Total 214.716 ml Output Total 951 ml Balance -736.284 ml Intake Oral 0 ml IV Total 214.716 ml Output Urine Total 951 ml Laboratory Tests Test 12/10/19 17:28 12/10/19 17:45 12/10/19 19:30 12/10/19 21:00 Arterial Blood pH 7.334 (7.350-7.450) Arterial Blood Partial Pressure CO2 27.4 mmHg (35.0-45.0) L Arterial Blood Partial Pressure O2 56.4 mmHg (75.0-100.0) L Arterial Blood HCO3 14.3 mmol/L (22.0-26.0) *L Arterial Blood Oxygen Saturation 84.0 % (95-100) *L Arterial Blood Base Excess -10.1 (-2-2) *L Guzman Test Positive Prothrombin Time 13.8 SEC (9.30-11.50) H Prothromb Time International Ratio 1.3 (0.9-1.1) H Activated Partial Thromboplast Time 28 SEC (23-33) Sodium Level 128 MMOL/L (136-145) L Potassium Level 4.9 MMOL/L (3.5-5.1) Chloride Level 90 MMOL/L (98-107) L Carbon Dioxide Level 14 MMOL/L (21-32) L Anion Gap 24 mmol/L (5-15) H Blood Urea Nitrogen 90 mg/dL (7-18) H Creatinine 2.6 MG/DL (0.55-1.30) H Estimat Glomerular Filtration Rate 27.8 mL/min (>60) Glucose Level 1247 MG/DL (74-106) *H Lactic Acid Level 9.60 mmol/L (0.4-2.0) H 4.70 mmol/L (0.66-2.22) H Calcium Level 8.0 MG/DL (8.5-10.1) L Total Bilirubin 2.4 MG/DL (0.2-1.0) H Direct Bilirubin 1.6 MG/DL (0.0-0.3) H Aspartate Amino Transf (AST/SGOT) 40 U/L (15-37) H Alanine Aminotransferase (ALT/SGPT) 36 U/L (12-78) Alkaline Phosphatase 110 U/L (46-116) Total Creatine Kinase 184 U/L (26-308) Creatine Kinase MB 2.4 NG/ML (0.0-3.6) Creatine Kinase MB Relative Index 1.3 Troponin I 0.000 ng/mL (0.000-0.056) Pro-B-Type Natriuretic Peptide 328 pg/mL (0-125) H Total Protein 7.4 G/DL (6.4-8.2) Albumin 2.5 G/DL (3.4-5.0) L Globulin 4.9 g/dL Albumin/Globulin Ratio 0.5 (1.0-2.7) L Triglycerides Level 329 MG/DL (30-150) H Urine Color Yellow Urine Appearance Clear Urine pH 5 (4.5-8.0) Urine Specific [place] 1.005 (1.005-1.035) Urine Protein 2+ (NEGATIVE) H Urine Glucose (UA) Negative (NEGATIVE) Urine Ketones Negative (NEGATIVE) Urine Blood 3+ (NEGATIVE) H Urine Nitrite Negative (NEGATIVE) Urine Bilirubin Negative (NEGATIVE) Urine Urobilinogen 4 MG/DL (0.0-1.0) H Urine Leukocyte Esterase 1+ (NEGATIVE) H Urine RBC 30-40 /HPF (0 - 0) H Urine WBC 2-4 /HPF (0 - 0) Urine Squamous Epithelial Cells None /LPF (NONE/OCC) Urine Bacteria Occasional /HPF (NONE) Urine Opiates Screen Negative (NEGATIVE) Urine Barbiturates Screen Negative (NEGATIVE) Phencyclidine (PCP) Screen Negative (NEGATIVE) Urine Amphetamines Screen Negative (NEGATIVE) Urine Benzodiazepines Screen Positive (NEGATIVE) H Urine Cocaine Screen Negative (NEGATIVE) Urine Marijuana (THC) Screen Negative (NEGATIVE) White Blood Count 9.6 K/UL (4.8-10.8) Red Blood Count 3.04 M/UL (4.70-6.10) L Hemoglobin 9.8 G/DL (14.2-18.0) L Hematocrit 27.6 % (42.0-52.0) L Mean Corpuscular Volume 91 FL (80-99) Mean Corpuscular Hemoglobin 32.3 PG (27.0-31.0) H Mean Corpuscular Hemoglobin Concent 35.6 G/DL (32.0-36.0) Red Cell Distribution Width 15.0 % (11.6-14.8) H Platelet Count 20 K/UL (150-450) L Mean Platelet Volume 9.4 FL (6.5-10.1) Neutrophils (%) (Auto) % (45.0-75.0) Lymphocytes (%) (Auto) % (20.0-45.0) Monocytes (%) (Auto) % (1.0-10.0) Eosinophils (%) (Auto) % (0.0-3.0) Basophils (%) (Auto) % (0.0-2.0) Differential Total Cells Counted 100 Neutrophils % (Manual) 24 % (45-75) L Lymphocytes % (Manual) 58 % (20-45) H Monocytes % (Manual) 18 % (1-10) H Eosinophils % (Manual) 0 % (0-3) Basophils % (Manual) 0 % (0-2) Band Neutrophils 0 % (0-8) Platelet Estimate Decreased L Platelet Morphology Normal Hypochromasia 1+ Anisocytosis 1+ D-Dimer > 35.20 mg/L FEU Hemoglobin A1c 11.9 % (4.3-6.0) H Test 12/10/19 22:05 12/11/19 05:54 12/11/19 08:02 12/11/19 08:40 Arterial Blood pH 7.246 (7.350-7.450) 7.420 (7.350-7.450) Arterial Blood Partial Pressure CO2 42.0 mmHg (35.0-45.0) 33.8 mmHg (35.0-45.0) L Arterial Blood Partial Pressure O2 84.6 mmHg (75.0-100.0) 286.5 mmHg (75.0-100.0) H Arterial Blood HCO3 17.8 mmol/L (22.0-26.0) *L 21.4 mmol/L (22.0-26.0) L Arterial Blood Oxygen Saturation 92.4 % (95-100) L 98.2 % (95-100) Arterial Blood Base Excess -8.9 (-2-2) L -2.5 (-2-2) L Guzman Test Positive Positive White Blood Count 8.4 K/UL (4.8-10.8) Red Blood Count 3.03 M/UL (4.70-6.10) L Hemoglobin 9.6 G/DL (14.2-18.0) L Hematocrit 25.7 % (42.0-52.0) L Mean Corpuscular Volume 85 FL (80-99) Mean Corpuscular Hemoglobin 31.6 PG (27.0-31.0) H Mean Corpuscular Hemoglobin Concent 37.2 G/DL (32.0-36.0) H Red Cell Distribution Width 13.5 % (11.6-14.8) Platelet Count 8 K/UL (150-450) #*L Mean Platelet Volume 14.9 FL (6.5-10.1) H Neutrophils (%) (Auto) % (45.0-75.0) Lymphocytes (%) (Auto) % (20.0-45.0) Monocytes (%) (Auto) % (1.0-10.0) Eosinophils (%) (Auto) % (0.0-3.0) Basophils (%) (Auto) % (0.0-2.0) Neutrophils % (Manual) Pending Lymphocytes % (Manual) Pending Platelet Estimate Pending Platelet Morphology Pending Sodium Level 154 MMOL/L (136-145) #H Potassium Level 4.3 MMOL/L (3.5-5.1) Chloride Level 118 MMOL/L (98-107) H Carbon Dioxide Level 22 MMOL/L (21-32) Anion Gap 14 mmol/L (5-15) Blood Urea Nitrogen 63 mg/dL (7-18) H Creatinine 1.2 MG/DL (0.55-1.30) # Estimat Glomerular Filtration Rate > 60 mL/min (>60) Glucose Level 141 MG/DL (74-106) #H Calcium Level 7.8 MG/DL (8.5-10.1) L Total Bilirubin 1.0 MG/DL (0.2-1.0) Aspartate Amino Transf (AST/SGOT) 38 U/L (15-37) H Alanine Aminotransferase (ALT/SGPT) 31 U/L (12-78) Alkaline Phosphatase 85 U/L (46-116) Total Protein 6.2 G/DL (6.4-8.2) L Albumin 2.1 G/DL (3.4-5.0) L Globulin 4.1 g/dL Albumin/Globulin Ratio 0.5 (1.0-2.7) L Lactic Acid Level 2.10 mmol/L (0.4-2.0) H Microbiology Date/Time Source Procedure Growth Status 12/10/19 17:50 Nasal Nares - Final Complete 12/10/19 17:50 Nasal Nares - Final Complete Vikash Moreno MD Dec 11, 2019 10:48
[2019-12-11] MEDS: Hydroxychloroquine 400mg tab ORAL SCH ×2 (12:00→17:41)
[2019-12-11 13:29] LABS: INR 1.1 (0.9-1.1)
--- NOTE | 2019-12-11 13:41 | NUR ---
NURSE NOTES: PT remains febrile although Tylenol 650mg PRN was given. Will continue to monitor so platelets can be transfused per MD order.
[2019-12-11 14:17] LABS: CHOLESTEROL 138 MG/DL (< 200); GAMMA GLUTAMYL TRANSPEPTIDASE 63 U/L (5-85); HDL CHOLESTEROL 12 MG/DL (40-60); PHOSPHORUS 1.8 MG/DL (2.5-4.9); TRIGLYCERIDES 391 MG/DL (30-150)
[2019-12-11 14:42] LABS: FERRITIN > 2000 NG/ML (8-388)
[2019-12-11 14:59] LABS: ANION GAP 16 mmol/L (5-15); BLOOD UREA NITROGEN 54 mg/dL (7-18); CALCIUM 7.6 MG/DL (8.5-10.1); CARBON DIOXIDE 19 MMOL/L (21-32); CHLORIDE 123 MMOL/L (98-107); CREATININE 1.1 MG/DL (0.55-1.30); POTASSIUM 4.6 MMOL/L (3.5-5.1); SODIUM 158 MMOL/L (136-145)
[2019-12-11 15:05] LABS: % IRON SATURATION 92 % (15-50); IRON 92 ug/dL (50-175); TOTAL IRON BINDING CAPACITY 100 ug/dL (250-450)
[2019-12-11 15:10] LABS: ALANINE AMINOTRANSFERASE 30 U/L (12-78); ALBUMIN/GLOBULIN RATIO 0.5 (1.0-2.7); ALKALINE PHOSPHATASE 75 U/L (46-116); ASPARTATE AMINO TRANSFERASE 40 U/L (15-37); BILIRUBIN,TOTAL 1.1 MG/DL (0.2-1.0)
--- NOTE | 2019-12-11 17:15 | Consultation ---
DATE OF CONSULTATION: 12/11/2019 INFECTIOUS DISEASE CONSULTATION CONSULTING PHYSICIAN: Pietro Rodriguez M.D. PRIMARY ATTENDING: Marc Hawkins M.D. REASON FOR CONSULT: Pneumonia, likely COVID-19 and sepsis. HISTORY OF PRESENT ILLNESS: A 39-year-old male admitted yesterday because of shortness of breath and confusion. Bystanders seen the patient confused and weak and called paramedics. Patient reported he was sick for 2 weeks with flu-like symptoms. Has tachycardia, tachypnea, lactic acidosis, hypoxemia, and respiratory failure. Patient was intubated in ER and transferred to ICU. Not a source of history. ALLERGIES: No known drug allergies. MEDICATIONS: Get insulin drip, sodium chloride, propofol, midazolam. Get a dose of ceftriaxone and azithromycin in the ER. SOCIAL HISTORY: Single. No other history obtainable. PHYSICAL EXAMINATION: VITAL SIGNS: Temperature is 99.5 pulse, pulse is 111, respiratory rate is 18, blood pressure is 141/70. GENERAL APPEARANCE: Seems to be well developed. HEAD AND NECK: Orally intubated. HEART: Tachycardic. LUNGS: On mechanical ventilator. ABDOMEN: Soft. EXTREMITIES: No edema. LABORATORY AND DIAGNOSTIC DATA: WBC 9.6, hemoglobin 9.8, hematocrit 27.6, platelets is 20. The patient has lymphocytosis with 58% lymphocytes, 18% monocytes. , potassium 4.9, chloride 19, bicarb 14, BUN 90, creatinine 2.6, glucose is 1247. Bilirubin 2.4, AST 40. Chest x-ray showed bilateral pulmonary infiltrates with huge lung volumes. Influenza A and B antigen were negative. IMPRESSION: Sepsis with tachycardia, tachypnea. Has bilateral pneumonia likely COVID-19. Has hypoxemic respiratory failure, diabetes mellitus with hyperglycemia, thrombocytopenia, lymphocytosis, anemia, acute renal failure, elevated in bilirubin, hyponatremia. RECOMMENDATION: We will start on hydroxychloroquine. We will continue ceftriaxone. We will follow up culture and COVID-19 test. At the end of my exam, I thank Dr. Hawkins for involving me in the care of this patient. Pietro Rodriguez M.D. DR: KLARISSA JOB#: [id number] CC: TOSIN
--- NOTE | 2019-12-11 17:30 | NUR ---
NURSE NOTES: PT insulin turned off; cooling measures with ice packs still in place, will continue to monitor PT.
--- NOTE | 2019-12-11 17:33 | NUR ---
NURSE NOTES: PT remains febrile 102.2 axillary temp; cooling measures implemented with ice packs to no effect, will continue to monitor PT.
--- NOTE | 2019-12-11 18:00 | Consultation ---
DATE OF CONSULTATION: 12/11/2019 ICU CONSULTATION HISTORY OF PRESENT ILLNESS: This is a 39-year-old male who was found down and acting confused by a neighbor. The patient was brought to the emergency room. He has apparently been sick for several days and also had nausea, vomiting, and diarrhea. The patient was seen and admitted through the emergency room. The patient was found to be markedly hypoxic and required to be intubated overnight by the ER physician. At this point in time, no other information is known about this patient. I have reviewed the documentation by Nephrology and Hematology and no other information is known. ALLERGIES: None. PAST MEDICAL HISTORY: None. PAST SURGICAL HISTORY: None. REVIEW OF SYSTEMS: Not obtainable. PHYSICAL EXAMINATION: GENERAL: Reveals a 39-year-old male. VITAL SIGNS: Blood pressure at this time is 140/70, heart rate 110, respiratory rate 20. HEENT: Unremarkable. CHEST: Diminished breath sounds bilaterally with normal heart sounds. ABDOMEN: Soft. EXTREMITIES: There is no edema. LABORATORY AND DIAGNOSTIC DATA: He is intubated currently, FiO2 previously 100% and now 50%. Most recent ABG 7.42, pCO2 33, pO2 286. Remainder of the labs show white count of 8.4, hemoglobin 11.6, and platelet count is 8000. Chemistries are notable for sodium 154, creatinine 1.2. Lactic acid 4.7 now 2.1. Hemoglobin A1c 11.9. Coags show INR 1.2. . Toxicology is positive for benzodiazepine. Urinalysis shows multiple rbc's. X-ray chest bilateral infiltrates suspicious for pneumonia. IMPRESSION: 1. Respiratory failure. 2. Severe hypoxemia. 3. Pneumonia. 4. Diabetes mellitus. 5. Thrombocytopenia. DISCUSSION: Admitted to the hospital. We will transfuse platelets. We will give and Plaquenil. Keep on respirator, adjust to keep comfortable on oxygenation. DVT prophylaxis, SCDs. Protonix IV. Grave prognosis. We will follow carefully. Michele Ly M.D. DR: Alondra JOB#: [id number] CC:
--- NOTE | 2019-12-11 18:15 | NUR ---
NURSE NOTES: PT axillary temperature 102.4 remains febrile; can not transfuse platelets, KIERRA Rice made aware.
[2019-12-11] MEDS: Levemir Flexpen SUBQ SCH (18:33)
[2019-12-11] MEDS: NovoLOG Insulin Flexpen SUBQ SCH ×2 (18:34→22:16)
--- NOTE | 2019-12-11 19:30 | NUR ---
HAND-OFF: Report and PT given to NEGRITO Temple.
--- NOTE | 2019-12-11 19:45 | NUR ---
NURSE NOTES: LE: PATIENT NO RESPONSE TO VERBALLY STIMULI, ON SEDATED, DROWSY STATUS, ON ETT TO VENT AC 16/TV600/FIO2 50%/PEEP10, O2 SATURATION OVER 93% NOTED, HEART RATE 110'S/MIN ST, ABDOMEN SOFT, NO BM STATUS, F/C INTACT AND PATENT, DARK MAGEN COLOR URINE OUTED GRAVITY, PERIPHERAL LINE TO RIGHT AC AND LEFT AC INTACT AND PATENT, ONGOING DIPRIVAN 50MCG/KG/MIN AND VERSED 1MG/HR VIA LEFT SIDE PPL, IV FLUID 1/2 NS AT 100ML VIA RIGHT SIDE PPL, RASS SCORE -2 STATUS, 2 POINT SOFT RESTRAINT STATUS, TEMP 102F NOTED APPLIED COOLING BLANKET AND COOLING MEASURE, MADE LOWER BED POSITION, ON BED ALARM AND LOCKED, PLACED CALL LIGHT WITHIN REACH, WILL CONTINUE TO MONITOR.
--- NOTE | 2019-12-11 20:00 | NUR ---
NURSE NOTES: LE: PATIENT DROWSY STATUS, INCREASED VERSED DRIP TO 2MG/HR, DESATURATION NOTED 82%-85%, INCREASED FIO2 TO 70% AT THIS TIME.
--- NOTE | 2019-12-11 22:00 | NUR ---
NURSE NOTES: LE: PATIENT CALM, DROWSY, MOVING WHEN TOUCH, INCREASED VERSED DRIP TO 3MG/HR VIA PPL, WILL CONTINUE TO MONITOR.
[2019-12-12] VITALS (53 sets, daily range): BP systolic 80–164; BP diastolic 28–63
--- NOTE | 2019-12-12 00:05 | NUR ---
NURSE NOTES: PATIENT CALM, NO RESPONSE, ORAL CARE AND REPOSITIONED.
--- NOTE | 2019-12-12 00:29 | Consultation ---
DATE OF CONSULTATION: 12/11/2019 CARDIOLOGY CONSULTATION CONSULTING PHYSICIAN: Vikash Moreno MD. REFERRING PHYSICIAN: Marc Batista MD. REASON FOR CONSULTATION: Management of tachycardia in the patient with shortness of breath. HISTORY OF PRESENT ILLNESS: The patient is a very unfortunate 39-year-old gentleman, who was brought in by paramedics after he was found by a bystander for shortness of breath after he was found down with shortness of breath, confusion, and generalized weakness. The patient had limited ability to speak due to his shortness of breath and acute distress upon arrival to the emergency department. Apparently, the patient has been sick for about two weeks. It is not clear whether the patient had fever or cough in the past couple of weeks. According to the patient's father, the patient has been having flu-like symptoms. At the time of arrival to the hospital, temperature was 96.3 degrees Fahrenheit, blood pressure was 112/60, and respiratory rate was 35. On 15 L of nonrebreather mask oxygen, the patient was saturating at 94%. The patient does not have any underlying medical problems. In the emergency department, it was decided the patient has acute respiratory failure and requires intubation. Chest x-ray showed bilateral airspace disease consistent with bilateral pneumonia highly suspicious of COVID-19 pneumonia. The patient was transferred to intensive care unit for further evaluation and management of acute respiratory disease and treatment of possible COVID-19 infection. Cardiology consultation was made at the request of Dr. Hawkins to assist with management of tachycardia and hemodynamics. PAST MEDICAL HISTORY: None. FAMILY HISTORY: Unknown. SURGICAL HISTORY: None. LIST OF MEDICATIONS: None. SOCIAL HISTORY: Unknown. REVIEW OF SYSTEMS: The patient is currently intubated and 12-system review could not be obtained. PHYSICAL EXAMINATION: VITAL SIGNS: Blood pressure was 112/60, respirations of 35, pulse of 130, temperature 96.3 degrees Fahrenheit, O2 saturation 94% on nonrebreather mask at 15 L/min. GENERAL: The patient is a very unfortunate 39-year-old gentleman, currently intubated. HEENT: Atraumatic and normocephalic. Anicteric. Pupils are equal, round, and reactive to light and accommodation. NECK: JVP cannot be assessed as he is on the ventilator. LUNGS: Bilateral crackles. CARDIOVASCULAR SYSTEM: Normal S1, S2. Tachycardic. No murmurs, gallops, or rubs. PMI is at fourth intercostal space at midclavicular line. ABDOMEN: Soft, nontender, nondistended. No hepatosplenomegaly. Positive bowel sounds. EXTREMITIES: No evidence of edema, clubbing, or cyanosis. LABORATORY FINDINGS: WBC was 8.4, hemoglobin 9.6, hematocrit 25.7, and platelet count is 8,000; there were 21 blast cells. Sodium was 158, potassium was 4.6, chloride 123, bicarbonate 19, 1.1, glucose 143. Uric acid 5.4. Calcium was 7.6. ProBNP was 224. INR was 1.1. ASSESSMENT AND PLAN: The patient is a very unfortunate 39-year-old gentleman, who presented to the hospital with shortness of breath and flu-like symptoms, who is seen in Cardiology consultation. 1. Acute respiratory failure, most likely bilateral pneumonia, suspect COVID-19 infection. He requires Infectious Disease and Pulmonary consult. Doubt that we are dealing with cardiogenic pulmonary edema. 2. Sinus tachycardia, likely due to severe hypoxemia given the pulmonary status. Also, there is likelihood of underlying acute leukemia. 3. 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 There is presence of about 21% blasts in the peripheral smear. Hematology/Oncology consultation stat. I would like to thank, Dr. Hawkins, for the courtesy of this consultation. Vikash Moreno M.D. DR: Miguelina JOB#: [id number] CC:
[2019-12-12] MEDS: NovoLOG Insulin Flexpen SUBQ SCH ×9 (02:08→23:21)
--- NOTE | 2019-12-12 02:10 | NUR ---
NURSE NOTES: LE:PATIENT SEDATED, ONGOING VERSED 8MG/HR AND DIPRIVAN 50MCG/KG/MIN VIA PPL, KEPT RASS SCORE -2 PER PROTOCOLS, RELEASED RESTRAINTS AND REAPPLIED, WILL CONTINUE TO MONITOR.
--- NOTE | 2019-12-12 04:00 | NUR ---
NURSE NOTES: LE:MORNING CARE WAS DONE.
--- NOTE | 2019-12-12 05:00 | History and Physical Report ---
DATE OF ADMISSION: 12/10/2019 HISTORY OF PRESENT ILLNESS: The patient was intubated and looks like he might have COVID pneumonia based on the x-ray and admitted to the intensive care unit. The patient is very critically ill. Apparently, the patient presented by paramedics because of shortness of breath and confused. Bystander, possibly a neighbor saw the patient confused and appears very weak and called the paramedics. The patient was not able to provide much history in the emergency room and was lethargic and the ER doctor intubated the patient. The patient apparently according to the family was sick for the past 2 weeks and now we cannot obtain any history. The patient is intubated. PAST MEDICAL HISTORY: Unable to obtain. SURGICAL HISTORY: Unable to obtain. SOCIAL HISTORY: Unable to obtain. MEDICATIONS: Unable to obtain. ALLERGIES: Unable to obtain. REVIEW OF SYSTEMS: Unable to obtain. PHYSICAL EXAMINATION: VITAL SIGNS: Temperature is 102.2, pulse is 120, blood pressure 120/56. HEENT: PERRLA. NECK: Supple. CHEST: Bibasilar rhonchi. CARDIOVASCULAR: Tachycardic. GASTROINTESTINAL: Soft, nontender, nondistended. Positive bowel sounds. EXTREMITIES: No edema. He is sedated. Cannot examine the patient. LABORATORY DATA: WBC of 9.6, hemoglobin 9.8, and platelets of 20. Sodium 158, potassium 4.6. BUN of 54, creatinine 1.1. Glucose of 143. Troponin 0.033. ASSESSMENT AND PLAN: 1. Intubated. Pneumonia. COVID has been sent. 2. Hypernatremia, most likely due to dehydration. 3. Azotemia, most likely due to dehydration. 4. Severe thrombocytopenia. 5. Respiratory failure pneumonia. I have consulted Dr. Nicolás Guerrero, Dr. Miller, Dr. Becerril initially for elevated sugar that turned out to be wrong, was probably by mistake and also consulted Dr. Ly, Dr. Pietro Moreno to help with this very complicated and ill-appearing patient to help with the management of the pneumonia and thrombocytopenia, as well as again initial sugar was 1200, repeated it and Dr. Becerril was consulted because of the initial blood sugar of 1200. The patient needs intravenous fluids per Dr. Miller. Antibiotics per Dr. Pietro Rodriguez. Marc Hawkins M.D. DR: Dylan JOB#: [id number] CC:
--- NOTE | 2019-12-12 05:00 | NUR ---
NURSE NOTES: LE: STARTED 1 UNIT PHERESIS PLATELETS ([id number]) TRANSFUSION AFTER VERIFIED 2 NURSES.
--- NOTE | 2019-12-12 05:15 | NUR ---
NURSE NOTES: LE: NO SIDE REACTION NOTED AT THIS TIME.
[2019-12-12 05:52] LABS: HEMATOCRIT 22.5 % (42.0-52.0); HEMOGLOBIN 8.2 G/DL (14.2-18.0); MEAN CORPUSCULAR VOLUME 88 FL (80-99); RED BLOOD COUNT 2.55 M/UL (4.70-6.10); RED CELL DISTRIBUTION WIDTH 14.5 % (11.6-14.8); WHITE BLOOD COUNT 6.5 K/UL (4.8-10.8)
--- NOTE | 2019-12-12 06:00 | NUR ---
NURSE NOTES: LE: FINISHED TRANSFUSION, NO SIDE REACTION NOTED. SEEN THE PATIENT BY DR. BAUTISTA.
[2019-12-12 06:18] LABS: ANION GAP 9 mmol/L (5-15); BLOOD UREA NITROGEN 39 mg/dL (7-18); CARBON DIOXIDE 22 MMOL/L (21-32); CHLORIDE 115 MMOL/L (98-107); CREATININE 1.1 MG/DL (0.55-1.30); POTASSIUM 4.4 MMOL/L (3.5-5.1); SODIUM 146 MMOL/L (136-145); TRIGLYCERIDES 432 MG/DL (30-150)
[2019-12-12 06:23] LABS: PLATELET COUNT 8 K/UL (150-450)
--- NOTE | 2019-12-12 07:21 | NUR ---
HAND-OFF: Report given to NEGRITO MENDOZA.
--- NOTE | 2019-12-12 07:29 | Consultation ---
DATE OF CONSULTATION: 12/11/2019 ENDOCRINOLOGY CONSULTATION CONSULTING PHYSICIAN: German Becerril MD REFERRING PHYSICIAN: Marc Hawkins MD REASON FOR CONSULTATION: Diabetes management. HISTORY OF PRESENT ILLNESS: It is important to note that history is obtained from review of the chart and medical record and discussion with the RN. At this time, the patient is intubated in the ICU 00:22 admitted to the hospital with respiratory distress, blood sugar of 1000, gap acidosis, and respiratory failure. He was intubated and 00:45 for further observation and treatment. Glucose values came down successfully on insulin drip, currently at 2.5 units/hour. Urine ketones were negative. Blood was positive in the urine as well as protein. Lactic acid is coming down. PAST MEDICAL HISTORY: Unknown. FAMILY HISTORY: Unknown. SOCIAL HISTORY: Unknown. REVIEW OF SYSTEMS: Unobtainable. LABORATORY VALUES: Urine negative for ketones. Chemistry, sodium 135, potassium 4.3, chloride 118, bicarb 23, BUN 53, creatinine of 1.2. Lactic acid 4.7. WBC 8, hemoglobin 9.8, hematocrit 25.7, platelet count 01:38. PHYSICAL EXAMINATION: GENERAL: Patient in severe distress, intubated in the ICU. VITAL SIGNS: Temperature 99.5, pulse 113, respiratory rate 18, blood pressure is 108/53. HEENT: Orally intubated. NECK: No JVD. LUNGS: Decreased breath sounds. ABDOMEN: Positive bowel sounds. EXTREMITIES: No clubbing, cyanosis, or edema. DIAGNOSES: 1. Rule out COVID. 2. Respiratory failure. 3. Gap acidosis due to lactic acidosis. 4. Hyperglycemia without DKA. DISCUSSION: 1. Continue insulin drip for a few more hours. Glucose check every 2 hours. 2. We will convert to subcu insulin later on today. 3. Further adjustment according to blood glucose values. Thank you, Dr. Hawkins, for the courtesy of this consultation. German Becerril M.D. DR: NEGRITO/YESSENIA JOB#: [id number] CC:
[2019-12-12 08:06] LABS: ALANINE AMINOTRANSFERASE 30 U/L (12-78); ALBUMIN 1.8 G/DL (3.4-5.0); ALKALINE PHOSPHATASE 72 U/L (46-116); ASPARTATE AMINO TRANSFERASE 46 U/L (15-37); BILIRUBIN,DIRECT 1.5 MG/DL (0.0-0.3); BILIRUBIN,TOTAL 1.7 MG/DL (0.2-1.0)
--- NOTE | 2019-12-12 08:32 | Nephrology Progress Note ---
Assessment/Plan Problem List: (1) MERRITT (acute kidney injury) (2) Hyperglycemia (3) Anemia (4) Acute respiratory failure (5) COVID-19 virus infection (6) Severe thrombocytopenia Assessment Acute renal failure mainly dehydration due to osmotic diuresis Acute respiratory failure, intubated on mechanical ventilation Acute hyperglycemia, Acute metabolic and toxic encephalopathy Hyponatremia due to hyperglycemia Anemia, and severe thrombocytopenia Hypoalbuminemia, proteinuria High bilirubin on admission Plan First COVID-19 test positive Ventilation and pulmonary support Continue per hematology advice, in view of severe thrombocytopenia the risks and benefits of treatment with Plaquenil should be assessed Hydration, half-normal saline 100 cc an hour IV Protonix NG tube insertion Blood sugar and blood pressure check- Monitor renal parameters Per pulmonary and ID Anemia work-up Per orders Subjective ROS Limited/Unobtainable: Yes Objective Objective Last 24 Hour Vital Signs Date Time Temp Pulse Resp B/P (MAP) Pulse Ox O2 Delivery O2 Flow Rate FiO2 12/12/19 07:00 96 27 124/41 99 Mechanical Ventilator 70 12/12/19 07:00 27 Mechanical Ventilator 70 12/12/19 07:00 27 124/41 Mechanical Ventilator 70 12/12/19 06:30 97 31 12/12/19 06:30 97 31 128/40 98 Mechanical Ventilator 70 12/12/19 06:00 97 31 124/41 98 Mechanical Ventilator 70 12/12/19 06:00 31 Mechanical Ventilator 70 12/12/19 06:00 31 124/41 Mechanical Ventilator 70 12/12/19 05:30 95 27 111/40 98 Mechanical Ventilator 70 12/12/19 05:08 99 22 70 12/12/19 05:00 26 Mechanical Ventilator 70 12/12/19 05:00 26 118/35 Mechanical Ventilator 70 12/12/19 05:00 93 26 118/35 93 Mechanical Ventilator 70 12/12/19 04:56 36 145/57 70 12/12/19 04:30 96 28 118/51 96 Mechanical Ventilator 70 12/12/19 04:15 98 30 129/45 95 Mechanical Ventilator 70 12/12/19 04:00 100 12/12/19 04:00 Endotracheal Tube 12/12/19 04:00 96.4 100 27 132/53 96 Mechanical Ventilator 70 12/12/19 04:00 27 Mechanical Ventilator 70 12/12/19 04:00 27 132/53 Mechanical Ventilator 70 12/12/19 04:00 70 12/12/19 03:30 103 30 99 Mechanical Ventilator 70 12/12/19 03:04 105 24 70 12/12/19 03:00 107 29 157/53 98 Mechanical Ventilator 70 12/12/19 03:00 29 Mechanical Ventilator 70 12/12/19 03:00 29 157/53 Mechanical Ventilator 70 12/12/19 02:30 91 18 100 Mechanical Ventilator 70 12/12/19 02:15 91 19 117/51 100 Mechanical Ventilator 70 12/12/19 02:00 97 20 133/53 100 Mechanical Ventilator 70 12/12/19 02:00 20 Mechanical Ventilator 70 12/12/19 02:00 20 133/53 Mechanical Ventilator 70 12/12/19 01:45 96 24 100 Mechanical Ventilator 50 12/12/19 01:30 99 21 103/42 100 Mechanical Ventilator 50 12/12/19 01:30 42 Mechanical Ventilator 70 12/12/19 01:15 36 Mechanical Ventilator 70 12/12/19 01:15 101 25 123/57 100 Mechanical Ventilator 50 12/12/19 01:00 27 Mechanical Ventilator 12/12/19 01:00 27 124/68 Mechanical Ventilator 12/12/19 01:00 106 22 95/42 100 Mechanical Ventilator 50 12/12/19 00:55 122 30 70 12/12/19 00:45 111 24 103/38 100 Mechanical Ventilator 50 12/12/19 00:30 113 24 113/43 100 Mechanical Ventilator 50 12/12/19 00:15 119 27 102/38 100 Mechanical Ventilator 50 12/12/19 00:10 98.9 12/12/19 00:00 Endotracheal Tube 12/12/19 00:00 28 Mechanical Ventilator 12/12/19 00:00 28 134/64 Mechanical Ventilator 12/12/19 00:00 126 28 124/47 99 Mechanical Ventilator 50 12/12/19 00:00 70 12/11/19 23:45 143 35 148/56 98 Mechanical Ventilator 50 12/11/19 23:37 148 12/11/19 23:34 102.5 12/11/19 23:30 153 37 135/47 97 Mechanical Ventilator 50 12/11/19 23:17 161 37 189/71 100 Mechanical Ventilator 50 12/11/19 23:15 162 37 100 Mechanical Ventilator 50 12/11/19 23:05 36 Mechanical Ventilator 70 12/11/19 23:03 36 180/121 Mechanical Ventilator 12/11/19 23:00 39 Mechanical Ventilator 70 12/11/19 23:00 39 185/99 Mechanical Ventilator 70 12/11/19 23:00 157 39 185/99 100 Mechanical Ventilator 50 12/11/19 22:45 135 28 195/66 99 Mechanical Ventilator 50 12/11/19 22:35 133 35 50 12/11/19 22:30 120 32 163/60 100 Mechanical Ventilator 50 12/11/19 22:15 113 28 156/65 100 Mechanical Ventilator 50 12/11/19 22:00 110 28 159/65 100 Mechanical Ventilator 50 12/11/19 22:00 28 Mechanical Ventilator 70 12/11/19 22:00 28 159/65 Mechanical Ventilator 70 12/11/19 21:45 112 28 121/57 100 Mechanical Ventilator 50 12/11/19 21:30 114 28 129/54 100 Mechanical Ventilator 50 12/11/19 21:15 116 28 135/50 100 Mechanical Ventilator 50 12/11/19 21:00 70 12/11/19 21:00 28 Mechanical Ventilator 70 12/11/19 21:00 28 142/61 Mechanical Ventilator 70 12/11/19 21:00 117 28 142/61 100 Mechanical Ventilator 50 12/11/19 20:45 120 29 145/65 100 Mechanical Ventilator 50 12/11/19 20:30 119 29 117/40 83 Mechanical Ventilator 50 12/11/19 20:15 114 34 121/60 98 Mechanical Ventilator 50 12/11/19 20:00 50 12/11/19 20:00 45 Mechanical Ventilator 70 12/11/19 20:00 45 119/41 Mechanical Ventilator 70 12/11/19 20:00 Endotracheal Tube 12/11/19 20:00 102.0 115 45 119/41 98 Mechanical Ventilator 50 12/11/19 19:45 116 50 123/46 98 Mechanical Ventilator 50 12/11/19 19:30 116 49 125/47 98 Mechanical Ventilator 50 12/11/19 19:25 117 12/11/19 19:15 119 36 121/55 98 Mechanical Ventilator 50 12/11/19 19:10 117 29 50 12/11/19 19:00 117 32 121/52 98 Mechanical Ventilator 50 12/11/19 19:00 32 121/52 Mechanical Ventilator 50 12/11/19 18:30 102.4 119 34 122/54 99 Mechanical Ventilator 50 12/11/19 18:00 34 Mechanical Ventilator 100 12/11/19 18:00 33 124/54 Mechanical Ventilator 50 12/11/19 18:00 120 34 129/57 97 Mechanical Ventilator 50 12/11/19 17:42 27 119/50 Mechanical Ventilator 100 12/11/19 17:30 119 25 119/50 97 Mechanical Ventilator 50 12/11/19 17:00 27 Mechanical Ventilator 100 12/11/19 17:00 27 119/50 Mechanical Ventilator 100 12/11/19 17:00 102.2 120 27 120/56 96 Mechanical Ventilator 50 12/11/19 16:30 121 29 127/55 96 Mechanical Ventilator 50 12/11/19 16:00 50 12/11/19 16:00 27 Endotracheal Tube 50 12/11/19 16:00 27 122/51 Endotracheal Tube 50 12/11/19 16:00 122 12/11/19 16:00 Endotracheal Tube 50.0 12/11/19 16:00 122 27 122/51 96 Mechanical Ventilator 50 12/11/19 15:30 122 28 109/60 96 Mechanical Ventilator 50 12/11/19 15:29 122 28 50 12/11/19 15:00 123 29 119/56 96 Mechanical Ventilator 50 12/11/19 15:00 29 Endotracheal Tube 50 12/11/19 15:00 29 119/56 Endotracheal Tube 50 12/11/19 14:30 122 32 127/57 96 Mechanical Ventilator 50 12/11/19 14:00 34 Endotracheal Tube 50 12/11/19 14:00 34 116/47 Endotracheal Tube 50 12/11/19 14:00 122 34 116/47 96 Mechanical Ventilator 50 12/11/19 13:30 101.7 123 46 112/52 96 Mechanical Ventilator 50 12/11/19 13:00 28 Endotracheal Tube 50 12/11/19 13:00 28 133/50 Endotracheal Tube 50 12/11/19 13:00 123 28 133/50 97 Mechanical Ventilator 50 12/11/19 12:50 30 130/61 Endotracheal Tube 50 12/11/19 12:50 27 130/61 Endotracheal Tube 50 12/11/19 12:30 123 28 121/55 98 Mechanical Ventilator 50 12/11/19 12:00 120 12/11/19 12:00 Endotracheal Tube 50.0 12/11/19 12:00 50 12/11/19 12:00 27 Endotracheal Tube 50 12/11/19 12:00 27 120/53 Endotracheal Tube 50 12/11/19 12:00 101.5 120 27 127/53 98 Mechanical Ventilator 50 12/11/19 11:30 120 26 126/52 97 Mechanical Ventilator 50 12/11/19 11:09 119 27 50 12/11/19 11:00 120 28 113/50 98 Mechanical Ventilator 50 12/11/19 11:00 28 Endotracheal Tube 50 12/11/19 11:00 28 124/52 Endotracheal Tube 50 12/11/19 10:30 120 28 121/54 98 Mechanical Ventilator 50 12/11/19 10:00 118 26 122/56 98 Mechanical Ventilator 50 12/11/19 10:00 26 Endotracheal Tube 50 12/11/19 10:00 26 113/54 Endotracheal Tube 50 12/11/19 09:30 118 27 112/52 95 Mechanical Ventilator 50 12/11/19 09:00 27 Endotracheal Tube 50 12/11/19 09:00 27 132/50 Endotracheal Tube 100 12/11/19 09:00 116 27 132/50 97 Mechanical Ventilator 50 12/11/19 09:00 Endotracheal Tube 50.0 12/11/19 08:30 117 28 151/59 97 Mechanical Ventilator 100 Intake and Output 12/11/19 12/12/19 19:00 07:00 Intake Total 1430.8529 ml 1649.776 ml Output Total 790 ml 860 ml Balance 640.8529 ml 789.776 ml IV Total 1330.8529 ml 1589.776 ml Other 100 ml 60 ml Output Urine Total 790 ml 860 ml Laboratory Tests 12/11/19 08:40: Lactic Acid Level 2.10H 12/11/19 12:50: Reticulocyte Count 0.9, Sickle Cell Screen [Pending], Prothrombin Time 12.1H, Prothromb Time International Ratio 1.1, Sodium Level 158H, Potassium Level 4.6, Chloride Level 123H, Carbon Dioxide Level 19L, Anion Gap 16H, Blood Urea Nitrogen 54H, Creatinine 1.1, Estimat Glomerular Filtration Rate > 60, Glucose Level 143H, Uric Acid 5.4, Calcium Level 7.6L, Phosphorus Level 1.8L, Magnesium Level 2.9H, Iron Level 92, Total Iron Binding Capacity 100L, Percent Iron Saturation 92H, Unsaturated Iron Binding 8L, Ferritin > 2000H, Total Bilirubin 1.1H, Direct Bilirubin 0.0, Gamma Glutamyl Transpeptidase 63, Aspartate Amino Transf (AST/SGOT) 40H, Alanine Aminotransferase (ALT/SGPT) 30, Alkaline Phosphatase 75, Lactate Dehydrogenase 979H, Troponin I 0.033, C-Reactive Protein , Quantitative 41.8H, Pro-B-Type Natriuretic Peptide 224H, Total Protein 5.7L, Albumin 2.0L, Globulin 3.7, Albumin/Globulin Ratio 0.5L, Triglycerides Level 391H, Cholesterol Level 138, LDL Cholesterol 65, HDL Cholesterol 12L, Cholesterol/HDL Ratio 11.5H, Lipase 44L, Vitamin B12 Level > 2000H, Folate 4.7L , Thyroid Stimulating Hormone (TSH) 0.562, Hepatitis A IgM Antibody Negative, Hepatitis B Surface Antigen Negative, Hepatitis B Core IgM Antibody Negative, Hepatitis C Antibody <0.1 12/12/19 03:47: Sodium Level 146#H, Potassium Level 4.4, Chloride Level 115H, Carbon Dioxide Level 22, Anion Gap 9, Blood Urea Nitrogen 39H, Creatinine 1.1, Estimat Glomerular Filtration Rate > 60, Glucose Level 317#H, Calcium Level 8.0L, Phosphorus Level 3.0, Magnesium Level 2.8H, Total Bilirubin 1.7H, Direct Bilirubin 1.5H, Aspartate Amino Transf (AST/SGOT) 46H, Alanine Aminotransferase (ALT/SGPT) 30, Alkaline Phosphatase 72, Total Protein 5.9L, Albumin 1.8L, Triglycerides Level 432H, White Blood Count 6.5, Red Blood Count 2.55L, Hemoglobin 8.2L, Hematocrit 22.5L, Mean Corpuscular Volume 88, Mean Corpuscular Hemoglobin 32.2H, Mean Corpuscular Hemoglobin Concent 36.5H, Red Cell Distribution Width 14.5, Platelet Count 8*L, Mean Platelet Volume 15.4H, Neutrophils (%) (Auto) , Lymphocytes (%) (Auto) , Monocytes (%) (Auto) , Eosinophils (%) (Auto) , Basophils (%) (Auto) , Neutrophils % (Manual) [Pending] , Lymphocytes % (Manual) [Pending], Platelet Estimate [Pending], Platelet Morphology [Pending], HIV (1&2) Antibody Rapid Negative Height (Feet): 5 Height (Inches): 8.00 Weight (Pounds): 178 General Appearance: no apparent distress EENT: other - Intubated and vented Cardiovascular: tachycardia Respiratory/Chest: decreased breath sounds Abdomen: distended Delvin Miller MD Dec 12, 2019 08:32
[2019-12-12 08:54] LABS: HEMATOCRIT 20.9 % (42.0-52.0); HEMOGLOBIN 7.7 G/DL (14.2-18.0); MEAN CORPUSCULAR VOLUME 87 FL (80-99); PLATELET COUNT 22 K/UL (150-450); RED BLOOD COUNT 2.41 M/UL (4.70-6.10); RED CELL DISTRIBUTION WIDTH 13.8 % (11.6-14.8); WHITE BLOOD COUNT 5.7 K/UL (4.8-10.8)
[2019-12-12] MEDS: Pantoprazole Inj IVP SCH ×2 (09:05→21:04)
[2019-12-12] MEDS: Versed 50mg/D5W 100ml 100 ML IV SCH ×4 (09:05→23:19)
[2019-12-12] MEDS: cefTRIAXone 2 GM in NS 55 ML IVPB SCH (09:06)
[2019-12-12] MEDS: Levemir Flexpen SUBQ SCH ×2 (09:09→18:16)
--- NOTE | 2019-12-12 09:50 | Infectious Diseases Prog Note ---
Assessment/Plan Assessment/Plan IMPRESSION: Sepsis with tachycardia, tachypnea & fever. Pneumonia with COVID-19. Hypoxemic respiratory failure, Diabetes mellitus with hyperglycemia, Blast in peripheral blood Thrombocytopenia, Lymphocytosis, Anemia, Acute renal failure, Elevated in bilirubin, Hyponatremia. RECOMMENDATION: We will Continue hydroxychloroquine &ceftriaxone. We will follow up cultures & Flucytometry Subjective ROS Limited/Unobtainable: Yes Constitutional: Reports: fever, other - Ss=983.5 Allergies: Coded Allergies: UNABLE TO ASSESS (Unverified , 12/10/19) Objective Vital Signs Last 24 Hour Vital Signs Date Time Temp Pulse Resp B/P (MAP) Pulse Ox O2 Delivery O2 Flow Rate FiO2 12/12/19 09:05 27 Mechanical Ventilator 50.0 70 12/12/19 07:00 96 27 124/41 99 Mechanical Ventilator 70 12/12/19 07:00 27 Mechanical Ventilator 70 12/12/19 07:00 27 124/41 Mechanical Ventilator 70 12/12/19 07:00 95 23 70 12/12/19 06:30 97 31 12/12/19 06:30 97 31 128/40 98 Mechanical Ventilator 70 12/12/19 06:00 97 31 124/41 98 Mechanical Ventilator 70 12/12/19 06:00 31 Mechanical Ventilator 70 12/12/19 06:00 31 124/41 Mechanical Ventilator 70 12/12/19 05:30 95 27 111/40 98 Mechanical Ventilator 70 12/12/19 05:08 99 22 70 12/12/19 05:00 26 Mechanical Ventilator 70 12/12/19 05:00 26 118/35 Mechanical Ventilator 70 12/12/19 05:00 93 26 118/35 93 Mechanical Ventilator 70 12/12/19 04:56 36 145/57 70 12/12/19 04:30 96 28 118/51 96 Mechanical Ventilator 70 12/12/19 04:15 98 30 129/45 95 Mechanical Ventilator 70 12/12/19 04:00 100 12/12/19 04:00 Endotracheal Tube 12/12/19 04:00 96.4 100 27 132/53 96 Mechanical Ventilator 70 12/12/19 04:00 27 Mechanical Ventilator 70 12/12/19 04:00 27 132/53 Mechanical Ventilator 70 12/12/19 04:00 70 12/12/19 03:30 103 30 99 Mechanical Ventilator 70 12/12/19 03:04 105 24 70 4/16/20 03:00 107 29 157/53 98 Mechanical Ventilator 70 12/12/19 03:00 29 Mechanical Ventilator 70 12/12/19 03:00 29 157/53 Mechanical Ventilator 70 12/12/19 02:30 91 18 100 Mechanical Ventilator 70 12/12/19 02:15 91 19 117/51 100 Mechanical Ventilator 70 12/12/19 02:00 97 20 133/53 100 Mechanical Ventilator 70 12/12/19 02:00 20 Mechanical Ventilator 70 12/12/19 02:00 20 133/53 Mechanical Ventilator 70 12/12/19 01:45 96 24 100 Mechanical Ventilator 50 12/12/19 01:30 99 21 103/42 100 Mechanical Ventilator 50 12/12/19 01:30 42 Mechanical Ventilator 70 12/12/19 01:15 36 Mechanical Ventilator 70 12/12/19 01:15 101 25 123/57 100 Mechanical Ventilator 50 12/12/19 01:00 27 Mechanical Ventilator 12/12/19 01:00 27 124/68 Mechanical Ventilator 12/12/19 01:00 106 22 95/42 100 Mechanical Ventilator 50 12/12/19 00:55 122 30 70 12/12/19 00:45 111 24 103/38 100 Mechanical Ventilator 50 12/12/19 00:30 113 24 113/43 100 Mechanical Ventilator 50 12/12/19 00:15 119 27 102/38 100 Mechanical Ventilator 50 12/12/19 00:10 98.9 12/12/19 00:00 Endotracheal Tube 12/12/19 00:00 28 Mechanical Ventilator 12/12/19 00:00 28 134/64 Mechanical Ventilator 12/12/19 00:00 126 28 124/47 99 Mechanical Ventilator 50 12/12/19 00:00 70 12/11/19 23:45 143 35 148/56 98 Mechanical Ventilator 50 12/11/19 23:37 148 12/11/19 23:34 102.5 12/11/19 23:30 153 37 135/47 97 Mechanical Ventilator 50 12/11/19 23:17 161 37 189/71 100 Mechanical Ventilator 50 12/11/19 23:15 162 37 100 Mechanical Ventilator 50 12/11/19 23:05 36 Mechanical Ventilator 70 12/11/19 23:03 36 180/121 Mechanical Ventilator 12/11/19 23:00 39 Mechanical Ventilator 70 12/11/19 23:00 39 185/99 Mechanical Ventilator 70 12/11/19 23:00 157 39 185/99 100 Mechanical Ventilator 50 12/11/19 22:45 135 28 195/66 99 Mechanical Ventilator 50 12/11/19 22:35 133 35 50 12/11/19 22:30 120 32 163/60 100 Mechanical Ventilator 50 12/11/19 22:15 113 28 156/65 100 Mechanical Ventilator 50 12/11/19 22:00 110 28 159/65 100 Mechanical Ventilator 50 12/11/19 22:00 28 Mechanical Ventilator 70 12/11/19 22:00 28 159/65 Mechanical Ventilator 70 12/11/19 21:45 112 28 121/57 100 Mechanical Ventilator 50 12/11/19 21:30 114 28 129/54 100 Mechanical Ventilator 50 12/11/19 21:15 116 28 135/50 100 Mechanical Ventilator 50 12/11/19 21:00 70 12/11/19 21:00 28 Mechanical Ventilator 70 12/11/19 21:00 28 142/61 Mechanical Ventilator 70 12/11/19 21:00 117 28 142/61 100 Mechanical Ventilator 50 12/11/19 20:45 120 29 145/65 100 Mechanical Ventilator 50 12/11/19 20:30 119 29 117/40 83 Mechanical Ventilator 50 12/11/19 20:15 114 34 121/60 98 Mechanical Ventilator 50 12/11/19 20:00 50 12/11/19 20:00 45 Mechanical Ventilator 70 12/11/19 20:00 45 119/41 Mechanical Ventilator 70 12/11/19 20:00 Endotracheal Tube 12/11/19 20:00 102.0 115 45 119/41 98 Mechanical Ventilator 50 12/11/19 19:45 116 50 123/46 98 Mechanical Ventilator 50 12/11/19 19:30 116 49 125/47 98 Mechanical Ventilator 50 12/11/19 19:25 117 12/11/19 19:15 119 36 121/55 98 Mechanical Ventilator 50 12/11/19 19:10 117 29 50 12/11/19 19:00 117 32 121/52 98 Mechanical Ventilator 50 12/11/19 19:00 32 121/52 Mechanical Ventilator 50 12/11/19 18:30 102.4 119 34 122/54 99 Mechanical Ventilator 50 12/11/19 18:00 34 Mechanical Ventilator 100 12/11/19 18:00 33 124/54 Mechanical Ventilator 50 12/11/19 18:00 120 34 129/57 97 Mechanical Ventilator 50 12/11/19 17:42 27 119/50 Mechanical Ventilator 100 12/11/19 17:30 119 25 119/50 97 Mechanical Ventilator 50 12/11/19 17:00 27 Mechanical Ventilator 100 12/11/19 17:00 27 119/50 Mechanical Ventilator 100 12/11/19 17:00 102.2 120 27 120/56 96 Mechanical Ventilator 50 12/11/19 16:30 121 29 127/55 96 Mechanical Ventilator 50 12/11/19 16:00 50 12/11/19 16:00 27 Endotracheal Tube 50 12/11/19 16:00 27 122/51 Endotracheal Tube 50 12/11/19 16:00 122 12/11/19 16:00 Endotracheal Tube 50.0 12/11/19 16:00 122 27 122/51 96 Mechanical Ventilator 50 12/11/19 15:30 122 28 109/60 96 Mechanical Ventilator 50 12/11/19 15:29 122 28 50 12/11/19 15:00 123 29 119/56 96 Mechanical Ventilator 50 12/11/19 15:00 29 Endotracheal Tube 50 12/11/19 15:00 29 119/56 Endotracheal Tube 50 12/11/19 14:30 122 32 127/57 96 Mechanical Ventilator 50 12/11/19 14:00 34 Endotracheal Tube 50 12/11/19 14:00 34 116/47 Endotracheal Tube 50 12/11/19 14:00 122 34 116/47 96 Mechanical Ventilator 50 12/11/19 13:30 101.7 123 46 112/52 96 Mechanical Ventilator 50 12/11/19 13:00 28 Endotracheal Tube 50 12/11/19 13:00 28 133/50 Endotracheal Tube 50 12/11/19 13:00 123 28 133/50 97 Mechanical Ventilator 50 12/11/19 12:50 30 130/61 Endotracheal Tube 50 12/11/19 12:50 27 130/61 Endotracheal Tube 50 12/11/19 12:30 123 28 121/55 98 Mechanical Ventilator 50 12/11/19 12:00 120 12/11/19 12:00 Endotracheal Tube 50.0 12/11/19 12:00 50 12/11/19 12:00 27 Endotracheal Tube 50 12/11/19 12:00 27 120/53 Endotracheal Tube 50 12/11/19 12:00 101.5 120 27 127/53 98 Mechanical Ventilator 50 12/11/19 11:30 120 26 126/52 97 Mechanical Ventilator 50 12/11/19 11:09 119 27 50 12/11/19 11:00 120 28 113/50 98 Mechanical Ventilator 50 12/11/19 11:00 28 Endotracheal Tube 50 12/11/19 11:00 28 124/52 Endotracheal Tube 50 12/11/19 10:30 120 28 121/54 98 Mechanical Ventilator 50 12/11/19 10:00 118 26 122/56 98 Mechanical Ventilator 50 12/11/19 10:00 26 Endotracheal Tube 50 12/11/19 10:00 26 113/54 Endotracheal Tube 50 Height (Feet): 5 Height (Inches): 8.00 Weight (Pounds): 178 HEENT: other - orally intubated Respiratory/Chest: other - on ventilator Cardiovascular: normal rate Abdomen: soft, non tender Extremities: no edema Neurologic/Psychiatric: other - sedated Microbiology Date/Time Source Procedure Growth Status 12/10/19 17:55 Blood Blood Culture - Preliminary NO GROWTH AFTER 24 HOURS Resulted 12/10/19 17:45 Blood Blood Culture - Preliminary NO GROWTH AFTER 24 HOURS Resulted 12/10/19 17:50 Nasal Nares - Final Complete 12/10/19 17:50 Nasal Nares - Final Complete 12/10/19 17:45 Nasopharynx Coronavirus COVID-19 PCR (GUILHERME) - Final Complete Laboratory Tests Test 12/11/19 12:50 12/12/19 03:47 12/12/19 08:35 Reticulocyte Count 0.9 % (0.5-2.0) Sickle Cell Screen Pending Prothrombin Time 12.1 SEC (9.30-11.50) H Prothromb Time International Ratio 1.1 (0.9-1.1) Sodium Level 158 MMOL/L (136-145) H 146 MMOL/L (136-145) #H Potassium Level 4.6 MMOL/L (3.5-5.1) 4.4 MMOL/L (3.5-5.1) Chloride Level 123 MMOL/L (98-107) H 115 MMOL/L (98-107) H Carbon Dioxide Level 19 MMOL/L (21-32) L 22 MMOL/L (21-32) Anion Gap 16 mmol/L (5-15) H 9 mmol/L (5-15) Blood Urea Nitrogen 54 mg/dL (7-18) H 39 mg/dL (7-18) H Creatinine 1.1 MG/DL (0.55-1.30) 1.1 MG/DL (0.55-1.30) Estimat Glomerular Filtration Rate > 60 mL/min (>60) > 60 mL/min (>60) Glucose Level 143 MG/DL (74-106) H 317 MG/DL (74-106) #H Uric Acid 5.4 MG/DL (2.6-7.2) Calcium Level 7.6 MG/DL (8.5-10.1) L 8.0 MG/DL (8.5-10.1) L Phosphorus Level 1.8 MG/DL (2.5-4.9) L 3.0 MG/DL (2.5-4.9) Magnesium Level 2.9 MG/DL (1.8-2.4) H 2.8 MG/DL (1.8-2.4) H Iron Level 92 ug/dL (50-175) Total Iron Binding Capacity 100 ug/dL (250-450) L Percent Iron Saturation 92 % (15-50) H Unsaturated Iron Binding 8 ug/dL (112-346) L Ferritin > 2000 NG/ML (8-388) H Total Bilirubin 1.1 MG/DL (0.2-1.0) H 1.7 MG/DL (0.2-1.0) H Direct Bilirubin 0.0 MG/DL (0.0-0.3) 1.5 MG/DL (0.0-0.3) H Gamma Glutamyl Transpeptidase 63 U/L (5-85) Aspartate Amino Transf (AST/SGOT) 40 U/L (15-37) H 46 U/L (15-37) H Alanine Aminotransferase (ALT/SGPT) 30 U/L (12-78) 30 U/L (12-78) Alkaline Phosphatase 75 U/L (46-116) 72 U/L (46-116) Lactate Dehydrogenase 979 U/L (81-234) H Troponin I 0.033 ng/mL (0.000-0.056) C-Reactive Protein, Quantitative 41.8 mg/dL (0.00-0.90) H Pro-B-Type Natriuretic Peptide 224 pg/mL (0-125) H Total Protein 5.7 G/DL (6.4-8.2) L 5.9 G/DL (6.4-8.2) L Albumin 2.0 G/DL (3.4-5.0) L 1.8 G/DL (3.4-5.0) L Globulin 3.7 g/dL Albumin/Globulin Ratio 0.5 (1.0-2.7) L Triglycerides Level 391 MG/DL (30-150) H 432 MG/DL (30-150) H Cholesterol Level 138 MG/DL (< 200) LDL Cholesterol 65 mg/dL (<100) HDL Cholesterol 12 MG/DL (40-60) L Cholesterol/HDL Ratio 11.5 (3.3-4.4) H Lipase 44 U/L (73-393) L Vitamin B12 Level > 2000 PG/ML (193-986) H Folate 4.7 NG/ML (8.6-58.9) L Thyroid Stimulating Hormone (TSH) 0.562 uiU/mL (0.358-3.740) Hepatitis A IgM Antibody Negative (Negative) Hepatitis B Surface Antigen Negative (Negative) Hepatitis B Core IgM Antibody Negative (Negative) Hepatitis C Antibody <0.1 s/co ratio White Blood Count 6.5 K/UL (4.8-10.8) 5.7 K/UL (4.8-10.8) Red Blood Count 2.55 M/UL (4.70-6.10) L 2.41 M/UL (4.70-6.10) L Hemoglobin 8.2 G/DL (14.2-18.0) L 7.7 G/DL (14.2-18.0) L Hematocrit 22.5 % (42.0-52.0) L 20.9 % (42.0-52.0) L Mean Corpuscular Volume 88 FL (80-99) 87 FL (80-99) Mean Corpuscular Hemoglobin 32.2 PG (27.0-31.0) H 31.8 PG (27.0-31.0) H Mean Corpuscular Hemoglobin Concent 36.5 G/DL (32.0-36.0) H 36.6 G/DL (32.0-36.0) H Red Cell Distribution Width 14.5 % (11.6-14.8) 13.8 % (11.6-14.8) Platelet Count 8 K/UL (150-450) *L 22 K/UL (150-450) #L Mean Platelet Volume 15.4 FL (6.5-10.1) H 5.4 FL (6.5-10.1) L Neutrophils (%) (Auto) % (45.0-75.0) % (45.0-75.0) Lymphocytes (%) (Auto) % (20.0-45.0) % (20.0-45.0) Monocytes (%) (Auto) % (1.0-10.0) % (1.0-10.0) Eosinophils (%) (Auto) % (0.0-3.0) % (0.0-3.0) Basophils (%) (Auto) % (0.0-2.0) % (0.0-2.0) Neutrophils % (Manual) Pending Pending Lymphocytes % (Manual) Pending Pending Platelet Estimate Pending Pending Platelet Morphology Pending Pending HIV (1&2) Antibody Rapid Negative (NEGATIVE) Current Medications Medications (Trade) Dose Ordered Sig/Dariana Route PRN Reason Start Time Stop Time Status Last Admin Dose Admin Acetaminophen (Tylenol) 650 mg Q6H PRN ORAL Temp >100.5 12/11/19 13:00 01/10/20 12:59 12/11/19 23:04 Ceftriaxone Sodium 2 gm/ Sodium Chloride 55 ml @ 110 mls/hr Q24H IVPB 12/11/19 10:00 12/18/19 09:59 12/12/19 09:06 Dextrose (Dextrose 50%) 25 ml Q30M PRN IV Hypoglycemia 12/11/19 17:30 03/10/20 17:29 Dextrose (Dextrose 50%) 50 ml Q30M PRN IV Hypoglycemia 12/11/19 17:30 03/10/20 17:29 Folic Acid (Folate) 2 mg DAILY NG 12/12/19 09:00 01/11/20 08:59 12/12/19 09:05 Hydroxychloroquine Sulfate (Plaquenil) 200 mg BID ORAL 12/12/19 09:00 12/15/19 18:01 12/12/19 09:05 Insulin Aspart (NovoLOG) Q4H SUBQ 12/11/19 18:00 03/10/20 17:59 12/12/19 09:07 Insulin Detemir (Levemir) 10 units BID SUBQ 12/11/19 18:00 03/10/20 17:59 12/12/19 09:09 Midazolam HCl 100 ml @ 0 mls/hr Q24H IV 12/11/19 00:00 12/18/19 00:00 12/12/19 09:05 Pantoprazole (Protonix) 40 mg EVERY 12 HOURS IVP 12/11/19 10:00 01/10/20 09:59 12/12/19 09:05 Propofol 100 ml @ 0 mls/hr Q24H IV 12/11/19 00:00 12/13/19 00:00 12/12/19 04:56 Sodium Chloride 1,000 ml @ 100 mls/hr Q10H IV 12/11/19 10:00 01/10/20 09:59 12/12/19 05:51 Pietro Rodriguez MD Dec 12, 2019 09:49
--- NOTE | 2019-12-12 10:00 | NUR ---
NURSE NOTES: Pt was administered Tylenol per PRN order for Temp 101F axillary.
--- NOTE | 2019-12-12 10:57 | NUR ---
RD ASSESSMENT & RECOMMENDATIONS SEE CARE ACTIVITY FOR COMPLETE ASSESSMENT DAILY ESTIMATED NEEDS: Needs based on Critical care/ 72.7kg abw 22-28 kcals/kg 9073-7640 total kcals 1.2-2 g protein/kg 87-145 g total protein 25-30 mL/kg 8066-7476 total fluid mLs NUTRITION DIAGNOSIS: * Swallowing difficulty R/T respiratory status as evidenced by orally intubated and sedated, + COVID-19, on NGT feeding. * Altered nutrition related lab values R/T hyperglycemia, h/o DM as evidenced by elev BG (1247-> 317 143), elev POC (275 228 144 174), A1C 11.9. CURRENT TF:Glucerna 1.5 @ 30ml/hr x 24 hrs PO DIET RECOMMENDATIONS: [employer]IREMENT ASSISTANT eval post extubation ENTERAL NUTRITION RECOMMENDATIONS: Glucerna 1.5 @ 45ml/hr x 24 hrs to provide 1080ml, 1620kcal, 89g prot, 820ml free water * Rec to maintain Glucerna 1.5 (vs 1.2) as Glucerna 1.2 OOS. * Increase goal rate to 45ml/hr x 24 hrs to meet 100% est kcal/prot needs * HOB over 30 degrees/ water flush per MD ADDITIONAL RECOMMENDATIONS: * Calibrated bedscale wt for accurate CBW * Monitor BGs closely w/ TF * Consider DC Diprivan- triglyceride trending up (432) -> rec different sedative * Monitor lytes, replete as needed
--- NOTE | 2019-12-12 11:30 | NUR ---
NURSE NOTES: Propofol drip was stopped completely and replaced with Fentanyl per Dr Ly's order, after MD was notified regarding elevated Triglycerides level. Pt remains -2light sedation RASS score while currently on 10mcg/hour on Fentanyl and Versed 8mg/hr.
--- NOTE | 2019-12-12 11:52 | Hematology/Onc Progress Note ---
Assessment/Plan Assessment/Plan Assessment and Recs # ACUTE MYELOID LEUKEMIA -- on flow 12/12/19 DX. Presented with Thrombocytopenia - potential causes multifactorial, evaluate liver and viral etiologies to begin , also could be related to underlying medications patient has received. 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 --> Hep panel and HIV ordered --> NEG --> US abd to evaluate for cirrhosis and hsm ordered --> Peripheral smear ordered to evaluate for blasts /schistocytes --> showed 25 % blasts --> abx and other meds have been reviewed --> ok for ppx if plt >50k w/ either heparin or lovenox --> Transfuse if Plt < 20k and fever, or if Plt < 10k without fever --> DDimer is high++ --> with blasts on peripheral smear, have dw pathology and pending a FLOW CYTOMETRY--> showed AML --> plt trend 8-->22-->22 --> Likely will need intensive high dose chemotherapy==> WILL NEED TRANSFER TO HIGHER LEVEL OF CARE TO [facility] # Anemia of chronic disease due to underlying chronic medical issues, multifactorial v Gi bleed --> Anemia workup has been ordered, rule out gi bleed --> No evidence of hemolysis is noted, peripheral smear has been reviewed. --> Hgb goal >7. Transfuse prn. --> Epogen or iron at this time is not particularly indicated --> Medications have been reviewed --> low threshold for gi evaluation in case has occult + # Coagulopathy may be due to sepsis/dic --> monitor closely --> vit k and ffp as needed to correct # Respiratory failure --> s/p intubation # Pneumonia --> abx on bcoard --> r/o covid # Severe hypoxemia --> s/p ibtubation # Acute metabolic and toxic encephalopathy # Hyponatremia due to hyperglycemia # Transaminitis # Dvt ppx scds # Transfer to HIGHER LEVEL OF CARE The timing of this note does not necessarily reflect the time of the patient was seen. Greatly appreciate consultation. Subjective Constitutional: Denies: no symptoms, chills, fever, malaise, weakness, other HEENT: Denies: no symptoms, eye pain, blurred vision, tearing, double vision, ear pain, ear discharge, nose pain, nose congestion, throat pain, throat swelling, mouth pain, mouth swelling, other Cardiovascular: Denies: no symptoms, chest pain, edema, irregular heart rate, lightheadedness, palpitations, syncope, other Respiratory: Denies: no symptoms, cough, shortness of breath, SOB with excertion, SOB at rest, sputum, wheezing, other Genitourinary: Denies: no symptoms, burning, discharge, frequency, flank pain, hematuria, incontinence, pain, urgency, other Neurologic/Psychiatric: Denies: no symptoms, anxiety, depressed, emotional problems, headache, numbness, paresthesia, pre-existing deficit, seizure, tingling, tremors, weakness, other Endocrine: Denies: no symptoms, excessive sweating, flushing, intolerance to cold, intolerance to heat, increased hunger, increased thirst, increased urine, unexplained weight gain, unexplained weight loss, other Hematologic/Lymphatic: Denies: no symptoms, anemia, easy bleeding, easy bruising, adenopathy, other Allergies: Coded Allergies: UNABLE TO ASSESS (Unverified , 12/10/19) Subjective 12/11 flow came back + for AML, awaiting if has APL, will initiate transfer to higher level of care Objective Objective Current Medications Medications (Trade) Dose Ordered Sig/Dariana Route PRN Reason Start Time Stop Time Status Last Admin Dose Admin Acetaminophen (Tylenol) 650 mg Q6H PRN ORAL Temp >100.5 12/11/19 13:00 01/10/20 12:59 12/12/19 09:52 Ceftriaxone Sodium 2 gm/ Sodium Chloride 55 ml @ 110 mls/hr Q24H IVPB 12/11/19 10:00 12/18/19 09:59 12/12/19 09:06 Dextrose (Dextrose 50%) 25 ml Q30M PRN IV Hypoglycemia 12/11/19 17:30 03/10/20 17:29 Dextrose (Dextrose 50%) 50 ml Q30M PRN IV Hypoglycemia 12/11/19 17:30 03/10/20 17:29 Fentanyl Citrate 1000 mcg/Sodium Chloride 100 ml @ 0 mls/hr Q24H IV 12/12/19 10:45 12/19/19 10:44 12/12/19 11:24 Folic Acid (Folate) 2 mg DAILY NG 12/12/19 09:00 01/11/20 08:59 12/12/19 09:05 Hydroxychloroquine Sulfate (Plaquenil) 200 mg BID ORAL 12/12/19 09:00 12/15/19 18:01 12/12/19 09:05 Insulin Aspart (NovoLOG) Q4H SUBQ 12/11/19 18:00 03/10/20 17:59 12/12/19 09:07 Insulin Detemir (Levemir) 10 units BID SUBQ 12/11/19 18:00 03/10/20 17:59 12/12/19 09:09 Midazolam HCl 100 ml @ 0 mls/hr Q24H IV 12/12/19 10:44 12/19/19 10:43 Pantoprazole (Protonix) 40 mg EVERY 12 HOURS IVP 12/11/19 10:00 01/10/20 09:59 12/12/19 09:05 Propofol 100 ml @ 0 mls/hr Q24H IV 12/11/19 00:00 12/13/19 00:00 12/12/19 09:51 Sodium Chloride 1,000 ml @ 100 mls/hr Q10H IV 12/11/19 10:00 01/10/20 09:59 12/12/19 05:51 Last 24 Hour Vital Signs Date Time Temp Pulse Resp B/P (MAP) Pulse Ox O2 Delivery O2 Flow Rate FiO2 12/12/19 11:24 27 Mechanical Ventilator 50.0 70 12/12/19 11:05 105 25 70 12/12/19 10:44 27 Mechanical Ventilator 50.0 70 12/12/19 10:22 100.3 12/12/19 09:51 27 124/41 Mechanical Ventilator 50.0 70 12/12/19 09:35 96.4 12/12/19 09:30 115 30 125/34 96 Mechanical Ventilator 12/12/19 09:05 27 Mechanical Ventilator 50.0 70 12/12/19 09:00 119 34 70 12/12/19 09:00 115 32 163/46 98 Mechanical Ventilator 12/12/19 08:30 102 29 118/41 99 Mechanical Ventilator 12/12/19 08:00 100.5 100 28 116/45 98 Mechanical Ventilator 12/12/19 07:30 96 25 124/41 100 Mechanical Ventilator 12/12/19 07:00 96 27 124/41 99 Mechanical Ventilator 70 12/12/19 07:00 27 Mechanical Ventilator 70 12/12/19 07:00 27 124/41 Mechanical Ventilator 70 12/12/19 07:00 95 23 70 12/12/19 06:30 97 31 12/12/19 06:30 97 31 128/40 98 Mechanical Ventilator 70 12/12/19 06:00 97 31 124/41 98 Mechanical Ventilator 70 12/12/19 06:00 31 Mechanical Ventilator 70 12/12/19 06:00 31 124/41 Mechanical Ventilator 70 12/12/19 05:30 95 27 111/40 98 Mechanical Ventilator 70 12/12/19 05:08 99 22 70 12/12/19 05:00 26 Mechanical Ventilator 70 12/12/19 05:00 26 118/35 Mechanical Ventilator 70 12/12/19 05:00 93 26 118/35 93 Mechanical Ventilator 70 12/12/19 04:56 36 145/57 70 12/12/19 04:30 96 28 118/51 96 Mechanical Ventilator 70 12/12/19 04:15 98 30 129/45 95 Mechanical Ventilator 70 12/12/19 04:00 100 12/12/19 04:00 Endotracheal Tube 12/12/19 04:00 96.4 100 27 132/53 96 Mechanical Ventilator 70 12/12/19 04:00 27 Mechanical Ventilator 70 12/12/19 04:00 27 132/53 Mechanical Ventilator 70 12/12/19 04:00 70 12/12/19 03:30 103 30 99 Mechanical Ventilator 70 12/12/19 03:04 105 24 70 12/12/19 03:00 107 29 157/53 98 Mechanical Ventilator 70 12/12/19 03:00 29 Mechanical Ventilator 70 12/12/19 03:00 29 157/53 Mechanical Ventilator 70 12/12/19 02:30 91 18 100 Mechanical Ventilator 70 12/12/19 02:15 91 19 117/51 100 Mechanical Ventilator 70 12/12/19 02:00 97 20 133/53 100 Mechanical Ventilator 70 12/12/19 02:00 20 Mechanical Ventilator 70 12/12/19 02:00 20 133/53 Mechanical Ventilator 70 12/12/19 01:45 96 24 100 Mechanical Ventilator 50 12/12/19 01:30 99 21 103/42 100 Mechanical Ventilator 50 12/12/19 01:30 42 Mechanical Ventilator 70 12/12/19 01:15 36 Mechanical Ventilator 70 12/12/19 01:15 101 25 123/57 100 Mechanical Ventilator 50 12/12/19 01:00 27 Mechanical Ventilator 12/12/19 01:00 27 124/68 Mechanical Ventilator 12/12/19 01:00 106 22 95/42 100 Mechanical Ventilator 50 12/12/19 00:55 122 30 70 12/12/19 00:45 111 24 103/38 100 Mechanical Ventilator 50 12/12/19 00:30 113 24 113/43 100 Mechanical Ventilator 50 12/12/19 00:15 119 27 102/38 100 Mechanical Ventilator 50 12/12/19 00:10 98.9 12/12/19 00:00 Endotracheal Tube 12/12/19 00:00 28 Mechanical Ventilator 12/12/19 00:00 28 134/64 Mechanical Ventilator 12/12/19 00:00 126 28 124/47 99 Mechanical Ventilator 50 12/12/19 00:00 70 12/11/19 23:45 143 35 148/56 98 Mechanical Ventilator 50 12/11/19 23:37 148 12/11/19 23:30 153 37 135/47 97 Mechanical Ventilator 50 12/11/19 23:17 161 37 189/71 100 Mechanical Ventilator 50 12/11/19 23:15 162 37 100 Mechanical Ventilator 50 12/11/19 23:05 36 Mechanical Ventilator 70 12/11/19 23:03 36 180/121 Mechanical Ventilator 12/11/19 23:00 39 Mechanical Ventilator 70 12/11/19 23:00 39 185/99 Mechanical Ventilator 70 12/11/19 23:00 157 39 185/99 100 Mechanical Ventilator 50 12/11/19 22:45 135 28 195/66 99 Mechanical Ventilator 50 12/11/19 22:35 133 35 50 12/11/19 22:30 120 32 163/60 100 Mechanical Ventilator 50 12/11/19 22:15 113 28 156/65 100 Mechanical Ventilator 50 12/11/19 22:00 110 28 159/65 100 Mechanical Ventilator 50 12/11/19 22:00 28 Mechanical Ventilator 70 12/11/19 22:00 28 159/65 Mechanical Ventilator 70 12/11/19 21:45 112 28 121/57 100 Mechanical Ventilator 50 12/11/19 21:30 114 28 129/54 100 Mechanical Ventilator 50 12/11/19 21:15 116 28 135/50 100 Mechanical Ventilator 50 12/11/19 21:00 70 12/11/19 21:00 28 Mechanical Ventilator 70 12/11/19 21:00 28 142/61 Mechanical Ventilator 70 12/11/19 21:00 117 28 142/61 100 Mechanical Ventilator 50 12/11/19 20:45 120 29 145/65 100 Mechanical Ventilator 50 12/11/19 20:30 119 29 117/40 83 Mechanical Ventilator 50 12/11/19 20:15 114 34 121/60 98 Mechanical Ventilator 50 12/11/19 20:00 50 12/11/19 20:00 45 Mechanical Ventilator 70 12/11/19 20:00 45 119/41 Mechanical Ventilator 70 12/11/19 20:00 Endotracheal Tube 12/11/19 20:00 102.0 115 45 119/41 98 Mechanical Ventilator 50 12/11/19 19:45 116 50 123/46 98 Mechanical Ventilator 50 12/11/19 19:30 116 49 125/47 98 Mechanical Ventilator 50 12/11/19 19:25 117 12/11/19 19:15 119 36 121/55 98 Mechanical Ventilator 50 12/11/19 19:10 117 29 50 12/11/19 19:00 117 32 121/52 98 Mechanical Ventilator 50 12/11/19 19:00 32 121/52 Mechanical Ventilator 50 12/11/19 18:30 102.4 119 34 122/54 99 Mechanical Ventilator 50 12/11/19 18:00 34 Mechanical Ventilator 100 12/11/19 18:00 33 124/54 Mechanical Ventilator 50 12/11/19 18:00 120 34 129/57 97 Mechanical Ventilator 50 12/11/19 17:42 27 119/50 Mechanical Ventilator 100 12/11/19 17:30 119 25 119/50 97 Mechanical Ventilator 50 12/11/19 17:00 27 Mechanical Ventilator 100 12/11/19 17:00 27 119/50 Mechanical Ventilator 100 12/11/19 17:00 102.2 120 27 120/56 96 Mechanical Ventilator 50 12/11/19 16:30 121 29 127/55 96 Mechanical Ventilator 50 12/11/19 16:00 50 12/11/19 16:00 27 Endotracheal Tube 50 12/11/19 16:00 27 122/51 Endotracheal Tube 50 12/11/19 16:00 122 12/11/19 16:00 Endotracheal Tube 50.0 12/11/19 16:00 122 27 122/51 96 Mechanical Ventilator 50 12/11/19 15:30 122 28 109/60 96 Mechanical Ventilator 50 12/11/19 15:29 122 28 50 12/11/19 15:00 123 29 119/56 96 Mechanical Ventilator 50 12/11/19 15:00 29 Endotracheal Tube 50 12/11/19 15:00 29 119/56 Endotracheal Tube 50 12/11/19 14:30 122 32 127/57 96 Mechanical Ventilator 50 12/11/19 14:00 34 Endotracheal Tube 50 12/11/19 14:00 34 116/47 Endotracheal Tube 50 12/11/19 14:00 122 34 116/47 96 Mechanical Ventilator 50 12/11/19 13:30 101.7 123 46 112/52 96 Mechanical Ventilator 50 12/11/19 13:00 28 Endotracheal Tube 50 12/11/19 13:00 28 133/50 Endotracheal Tube 50 12/11/19 13:00 123 28 133/50 97 Mechanical Ventilator 50 12/11/19 12:50 30 130/61 Endotracheal Tube 50 12/11/19 12:50 27 130/61 Endotracheal Tube 50 12/11/19 12:30 123 28 121/55 98 Mechanical Ventilator 50 12/11/19 12:00 120 12/11/19 12:00 Endotracheal Tube 50.0 12/11/19 12:00 50 12/11/19 12:00 27 Endotracheal Tube 50 12/11/19 12:00 27 120/53 Endotracheal Tube 50 12/11/19 12:00 101.5 120 27 127/53 98 Mechanical Ventilator 50 12/11/19 11:30 120 26 126/52 97 Mechanical Ventilator 50 12/11/19 11:09 119 27 50 12/11/19 11:00 120 28 113/50 98 Mechanical Ventilator 50 12/11/19 11:00 28 Endotracheal Tube 50 12/11/19 11:00 28 124/52 Endotracheal Tube 50 12/11/19 10:30 120 28 121/54 98 Mechanical Ventilator 50 12/11/19 10:00 118 26 122/56 98 Mechanical Ventilator 50 12/11/19 10:00 26 Endotracheal Tube 50 12/11/19 10:00 26 113/54 Endotracheal Tube 50 12/11/19 09:30 118 27 112/52 95 Mechanical Ventilator 50 12/11/19 09:00 27 Endotracheal Tube 50 12/11/19 09:00 27 132/50 Endotracheal Tube 100 12/11/19 09:00 116 27 132/50 97 Mechanical Ventilator 50 12/11/19 09:00 Endotracheal Tube 50.0 12/11/19 08:30 117 28 151/59 97 Mechanical Ventilator 100 12/11/19 08:11 18 141/70 Endotracheal Tube 100 12/11/19 08:00 100 12/11/19 08:00 Endotracheal Tube 100.0 12/11/19 08:00 99.9 115 28 141/70 100 Mechanical Ventilator 100 12/11/19 08:00 28 Endotracheal Tube 100 12/11/19 08:00 111 12/11/19 07:30 111 26 111/53 100 Mechanical Ventilator 100 12/11/19 07:25 113 20 50 12/11/19 07:00 111 27 108/53 100 Mechanical Ventilator 100 12/11/19 07:00 18 Mechanical Ventilator 100 12/11/19 07:00 20 112/45 Mechanical Ventilator 100.0 12/11/19 06:30 109 27 110/62 100 Mechanical Ventilator 100 12/11/19 06:30 110 28 12/11/19 06:00 111 28 101/52 100 Mechanical Ventilator 100 12/11/19 06:00 18 Mechanical Ventilator 100 12/11/19 06:00 22 110/52 Mechanical Ventilator 100 12/11/19 05:30 99.5 111 28 101/52 100 Mechanical Ventilator 100 12/11/19 05:00 111 27 100 12/11/19 05:00 111 28 101/52 100 Mechanical Ventilator 100 12/11/19 05:00 27 Mechanical Ventilator 100 12/11/19 05:00 27 109/57 Mechanical Ventilator 100 12/11/19 04:30 110 29 115/54 100 Mechanical Ventilator 100 12/11/19 04:00 100 12/11/19 04:00 98.9 110 30 112/54 100 Mechanical Ventilator 100 12/11/19 04:00 29 100 12/11/19 04:00 29 100 12/11/19 04:00 29 100 12/11/19 04:00 29 100 12/11/19 04:00 29 100 12/11/19 04:00 29 100 12/11/19 04:00 29 Mechanical Ventilator 100 12/11/19 04:00 29 100 12/11/19 04:00 29 100 12/11/19 04:00 29 114/51 Mechanical Ventilator 100 12/11/19 04:00 29 115/54 Mechanical Ventilator 100 12/11/19 04:00 29 115/54 Mechanical Ventilator 100 12/11/19 04:00 29 115/54 Mechanical Ventilator 100 12/11/19 04:00 29 115/54 Mechanical Ventilator 100 12/11/19 04:00 29 115/54 Mechanical Ventilator 100 12/11/19 04:00 29 115/54 Mechanical Ventilator 100 12/11/19 04:00 29 115/54 Mechanical Ventilator 100 12/11/19 04:00 29 115/54 Mechanical Ventilator 100 12/11/19 04:00 Mechanical Ventilator 100.0 12/11/19 04:00 105 12/11/19 03:30 108 29 125/58 100 Mechanical Ventilator 100 12/11/19 03:18 22 125/58 Mechanical Ventilator 100 12/11/19 03:18 26 125/58 Mechanical Ventilator 100 12/11/19 03:15 110 30 125/58 100 Mechanical Ventilator 100 12/11/19 03:03 26 128/71 Mechanical Ventilator 100 12/11/19 03:03 29 128/71 Mechanical Ventilator 100 12/11/19 03:00 108 29 128/71 100 Mechanical Ventilator 100 12/11/19 03:00 111 28 100 12/11/19 03:00 29 Mechanical Ventilator 100 12/11/19 03:00 29 Mechanical Ventilator 100 12/11/19 03:00 29 Mechanical Ventilator 100 12/11/19 03:00 29 Mechanical Ventilator 100 12/11/19 03:00 29 Mechanical Ventilator 100 12/11/19 03:00 29 Mechanical Ventilator 100 12/11/19 03:00 29 Mechanical Ventilator 100 12/11/19 03:00 29 Mechanical Ventilator 100 12/11/19 03:00 29 Mechanical Ventilator 100 12/11/19 03:00 29 125/58 Mechanical Ventilator 100 12/11/19 02:48 26 123/44 Mechanical Ventilator 100 12/11/19 02:48 27 123/44 Mechanical Ventilator 100 12/11/19 02:45 112 28 123/44 100 Mechanical Ventilator 100 12/11/19 02:33 26 123/44 Mechanical Ventilator 100 12/11/19 02:33 28 123/44 Mechanical Ventilator 100 12/11/19 02:02 98.4 112 28 123/44 100 Mechanical Ventilator 100 12/11/19 02:00 Mechanical Ventilator 100.0 4/15/20 02:00 29 Mechanical Ventilator 100 12/11/19 02:00 29 Mechanical Ventilator 100 12/11/19 02:00 29 Mechanical Ventilator 100 12/11/19 02:00 29 Mechanical Ventilator 100 12/11/19 02:00 29 Mechanical Ventilator 100 12/11/19 02:00 29 Mechanical Ventilator 100 12/11/19 02:00 29 Mechanical Ventilator 100 12/11/19 02:00 29 Mechanical Ventilator 100 12/11/19 02:00 28 Mechanical Ventilator 100 12/11/19 02:00 98.8 81 28 114/58 98 Mechanical Ventilator 100 12/11/19 01:53 28 Mechanical Ventilator 100 12/11/19 01:53 28 114/58 Mechanical Ventilator 100 12/11/19 01:53 98.8 81 28 114/58 98 Mechanical Ventilator 100 12/11/19 01:11 105 30 Mechanical Ventilator 100 12/11/19 00:57 105 30 100 12/11/19 00:53 88 28 104/55 98 Mechanical Ventilator 100 12/11/19 00:53 28 Mechanical Ventilator 100 12/11/19 00:53 28 Mechanical Ventilator 100 12/11/19 00:53 28 Mechanical Ventilator 100 12/11/19 00:53 28 104/55 Mechanical Ventilator 100 12/11/19 00:53 28 104/55 Mechanical Ventilator 100 12/11/19 00:53 28 104/55 Mechanical Ventilator 100 12/11/19 00:38 28 Mechanical Ventilator 100 12/11/19 00:38 28 Mechanical Ventilator 100 12/11/19 00:38 28 Mechanical Ventilator 100 12/11/19 00:38 28 100/57 Mechanical Ventilator 100 12/11/19 00:38 28 100/57 Mechanical Ventilator 100 12/11/19 00:38 28 100/57 Mechanical Ventilator 100 12/11/19 00:38 81 28 100/57 98 Mechanical Ventilator 100 12/11/19 00:34 85 26 102/58 98 Mechanical Ventilator 100 12/11/19 00:23 84 26 102/58 98 Mechanical Ventilator 15.0 100 12/11/19 00:23 26 Mechanical Ventilator 12/11/19 00:23 25 102/58 Mechanical Ventilator 12/11/19 00:09 101 28 100 12/11/19 00:08 87 26 104/59 98 Mechanical Ventilator 100 12/11/19 00:08 27 Mechanical Ventilator 12/11/19 00:08 26 104/59 Mechanical Ventilator 12/11/19 00:02 91 25 99/56 98 Mechanical Ventilator 15.0 100 12/11/19 00:02 25 99/56 Mechanical Ventilator 12/10/19 23:47 26 114/55 Mechanical Ventilator 12/10/19 23:47 89 26 114/55 98 Mechanical Ventilator 15.0 100 12/10/19 23:32 20 103/59 Mechanical Ventilator 12/10/19 23:32 98.5 92 20 103/59 98 Mechanical Ventilator 100 12/10/19 23:00 100 12/10/19 23:00 98.9 104 27 104/57 98 Mechanical Ventilator 100 12/10/19 22:45 27 106/50 Mechanical Ventilator 100 12/10/19 22:30 27 131/99 Mechanical Ventilator 100 12/10/19 22:15 27 123/69 Mechanical Ventilator 100 12/10/19 22:00 26 105/56 Mechanical Ventilator 100 12/10/19 22:00 98.9 111 27 105/56 98 Mechanical Ventilator 100 12/10/19 21:45 27 111/60 Mechanical Ventilator 100 12/10/19 21:30 27 111/42 Mechanical Ventilator 100 12/10/19 21:15 28 100/82 Mechanical Ventilator 100 12/10/19 21:00 98.9 117 27 127/67 96 Mechanical Ventilator 100 12/10/19 21:00 25 127/67 Mechanical Ventilator 100 12/10/19 20:45 26 122/59 Mechanical Ventilator 100 12/10/19 20:30 112 25 100 12/10/19 20:30 112 25 98 Mechanical Ventilator 100 12/10/19 20:30 30 88/57 Mechanical Ventilator 100 12/10/19 20:00 118 25 Non-Rebreather 15.0 12/10/19 20:00 98.9 118 25 88/65 96 Non-Rebreather 15.0 12/10/19 20:00 100 12/10/19 17:28 96.3 130 35 112/60 (77) 94 Non-Rebreather 15.0 Intake and Output 12/11/19 12/12/19 19:00 07:00 Intake Total 1430.8529 ml 1649.776 ml Output Total 790 ml 860 ml Balance 640.8529 ml 789.776 ml IV Total 1330.8529 ml 1589.776 ml Other 100 ml 60 ml Output Urine Total 790 ml 860 ml Labs Test 12/10/19 17:28 12/10/19 17:45 12/10/19 19:30 12/10/19 21:00 Arterial Blood pH 7.334 (7.350-7.450) Arterial Blood Partial Pressure CO2 27.4 mmHg (35.0-45.0) Arterial Blood Partial Pressure O2 56.4 mmHg (75.0-100.0) Arterial Blood HCO3 14.3 mmol/L (22.0-26.0) Arterial Blood Oxygen Saturation 84.0 % (95-100) Arterial Blood Base Excess -10.1 (-2-2) Guzman Test Positive Prothrombin Time 13.8 SEC (9.30-11.50) Prothromb Time International Ratio 1.3 (0.9-1.1) Activated Partial Thromboplast Time 28 SEC (23-33) Sodium Level 128 MMOL/L (136-145) Potassium Level 4.9 MMOL/L (3.5-5.1) Chloride Level 90 MMOL/L (98-107) Carbon Dioxide Level 14 MMOL/L (21-32) Anion Gap 24 mmol/L (5-15) Blood Urea Nitrogen 90 mg/dL (7-18) Creatinine 2.6 MG/DL (0.55-1.30) Estimat Glomerular Filtration Rate 27.8 mL/min (>60) Glucose Level 1247 MG/DL (74-106) Lactic Acid Level 9.60 mmol/L (0.4-2.0) 4.70 mmol/L (0.66-2.22) Calcium Level 8.0 MG/DL (8.5-10.1) Total Bilirubin 2.4 MG/DL (0.2-1.0) Direct Bilirubin 1.6 MG/DL (0.0-0.3) Aspartate Amino Transf (AST/SGOT) 40 U/L (15-37) Alanine Aminotransferase (ALT/SGPT) 36 U/L (12-78) Alkaline Phosphatase 110 U/L (46-116) Total Creatine Kinase 184 U/L (26-308) Creatine Kinase MB 2.4 NG/ML (0.0-3.6) Creatine Kinase MB Relative Index 1.3 Troponin I 0.000 ng/mL (0.000-0.056) Pro-B-Type Natriuretic Peptide 328 pg/mL (0-125) Total Protein 7.4 G/DL (6.4-8.2) Albumin 2.5 G/DL (3.4-5.0) Globulin 4.9 g/dL Albumin/Globulin Ratio 0.5 (1.0-2.7) Triglycerides Level 329 MG/DL (30-150) Urine Color Yellow Urine Appearance Clear Urine pH 5 (4.5-8.0) Urine Specific [place] 1.005 (1.005-1.035) Urine Protein 2+ (NEGATIVE) Urine Glucose (UA) Negative (NEGATIVE) Urine Ketones Negative (NEGATIVE) Urine Blood 3+ (NEGATIVE) Urine Nitrite Negative (NEGATIVE) Urine Bilirubin Negative (NEGATIVE) Urine Urobilinogen 4 MG/DL (0.0-1.0) Urine Leukocyte Esterase 1+ (NEGATIVE) Urine RBC 30-40 /HPF (0 - 0) Urine WBC 2-4 /HPF (0 - 0) Urine Squamous Epithelial Cells None /LPF (NONE/OCC) Urine Bacteria Occasional /HPF (NONE) Urine Opiates Screen Negative (NEGATIVE) Urine Barbiturates Screen Negative (NEGATIVE) Phencyclidine (PCP) Screen Negative (NEGATIVE) Urine Amphetamines Screen Negative (NEGATIVE) Urine Benzodiazepines Screen Positive (NEGATIVE) Urine Cocaine Screen Negative (NEGATIVE) Urine Marijuana (THC) Screen Negative (NEGATIVE) White Blood Count 9.6 K/UL (4.8-10.8) Red Blood Count 3.04 M/UL (4.70-6.10) Hemoglobin 9.8 G/DL (14.2-18.0) Hematocrit 27.6 % (42.0-52.0) Mean Corpuscular Volume 91 FL (80-99) Mean Corpuscular Hemoglobin 32.3 PG (27.0-31.0) Mean Corpuscular Hemoglobin Concent 35.6 G/DL (32.0-36.0) Red Cell Distribution Width 15.0 % (11.6-14.8) Platelet Count 20 K/UL (150-450) Mean Platelet Volume 9.4 FL (6.5-10.1) Neutrophils (%) (Auto) % (45.0-75.0) Lymphocytes (%) (Auto) % (20.0-45.0) Monocytes (%) (Auto) % (1.0-10.0) Eosinophils (%) (Auto) % (0.0-3.0) Basophils (%) (Auto) % (0.0-2.0) Differential Total Cells Counted 100 Neutrophils % (Manual) 24 % (45-75) Lymphocytes % (Manual) 58 % (20-45) Monocytes % (Manual) 18 % (1-10) Eosinophils % (Manual) 0 % (0-3) Basophils % (Manual) 0 % (0-2) Band Neutrophils 0 % (0-8) Platelet Estimate Decreased Platelet Morphology Normal Hypochromasia 1+ Anisocytosis 1+ D-Dimer > 35.20 mg/L FEU Hemoglobin A1c 11.9 % (4.3-6.0) Test 12/10/19 22:05 12/11/19 05:54 12/11/19 08:02 12/11/19 08:40 Arterial Blood pH 7.246 (7.350-7.450) 7.420 (7.350-7.450) Arterial Blood Partial Pressure CO2 42.0 mmHg (35.0-45.0) 33.8 mmHg (35.0-45.0) Arterial Blood Partial Pressure O2 84.6 mmHg (75.0-100.0) 286.5 mmHg (75.0-100.0) Arterial Blood HCO3 17.8 mmol/L (22.0-26.0) 21.4 mmol/L (22.0-26.0) Arterial Blood Oxygen Saturation 92.4 % (95-100) 98.2 % (95-100) Arterial Blood Base Excess -8.9 (-2-2) -2.5 (-2-2) Guzman Test Positive Positive White Blood Count 8.4 K/UL (4.8-10.8) Red Blood Count 3.03 M/UL (4.70-6.10) Hemoglobin 9.6 G/DL (14.2-18.0) Hematocrit 25.7 % (42.0-52.0) Mean Corpuscular Volume 85 FL (80-99) Mean Corpuscular Hemoglobin 31.6 PG (27.0-31.0) Mean Corpuscular Hemoglobin Concent 37.2 G/DL (32.0-36.0) Red Cell Distribution Width 13.5 % (11.6-14.8) Platelet Count 8 K/UL (150-450) Mean Platelet Volume 14.9 FL (6.5-10.1) Neutrophils (%) (Auto) % (45.0-75.0) Lymphocytes (%) (Auto) % (20.0-45.0) Monocytes (%) (Auto) % (1.0-10.0) Eosinophils (%) (Auto) % (0.0-3.0) Basophils (%) (Auto) % (0.0-2.0) Differential Total Cells Counted 100 Neutrophils % (Manual) 15 % (45-75) Lymphocytes % (Manual) 47 % (20-45) Monocytes % (Manual) 16 % (1-10) Eosinophils % (Manual) 1 % (0-3) Basophils % (Manual) 0 % (0-2) Blast Cells % 21 % (0-0) Band Neutrophils 0 % (0-8) Other Cell Type See comment Platelet Estimate Decreased Platelet Morphology Normal Sodium Level 154 MMOL/L (136-145) Potassium Level 4.3 MMOL/L (3.5-5.1) Chloride Level 118 MMOL/L (98-107) Carbon Dioxide Level 22 MMOL/L (21-32) Anion Gap 14 mmol/L (5-15) Blood Urea Nitrogen 63 mg/dL (7-18) Creatinine 1.2 MG/DL (0.55-1.30) Estimat Glomerular Filtration Rate > 60 mL/min (>60) Glucose Level 141 MG/DL (74-106) Calcium Level 7.8 MG/DL (8.5-10.1) Total Bilirubin 1.0 MG/DL (0.2-1.0) Aspartate Amino Transf (AST/SGOT) 38 U/L (15-37) Alanine Aminotransferase (ALT/SGPT) 31 U/L (12-78) Alkaline Phosphatase 85 U/L (46-116) Total Protein 6.2 G/DL (6.4-8.2) Albumin 2.1 G/DL (3.4-5.0) Globulin 4.1 g/dL Albumin/Globulin Ratio 0.5 (1.0-2.7) Lactic Acid Level 2.10 mmol/L (0.4-2.0) Test 12/11/19 12:50 12/12/19 03:47 12/12/19 08:35 12/12/19 09:30 Reticulocyte Count 0.9 % (0.5-2.0) Prothrombin Time 12.1 SEC (9.30-11.50) Prothromb Time International Ratio 1.1 (0.9-1.1) Sodium Level 158 MMOL/L (136-145) 146 MMOL/L (136-145) Potassium Level 4.6 MMOL/L (3.5-5.1) 4.4 MMOL/L (3.5-5.1) Chloride Level 123 MMOL/L (98-107) 115 MMOL/L (98-107) Carbon Dioxide Level 19 MMOL/L (21-32) 22 MMOL/L (21-32) Anion Gap 16 mmol/L (5-15) 9 mmol/L (5-15) Blood Urea Nitrogen 54 mg/dL (7-18) 39 mg/dL (7-18) Creatinine 1.1 MG/DL (0.55-1.30) 1.1 MG/DL (0.55-1.30) Estimat Glomerular Filtration Rate > 60 mL/min (>60) > 60 mL/min (>60) Glucose Level 143 MG/DL (74-106) 317 MG/DL (74-106) Uric Acid 5.4 MG/DL (2.6-7.2) Calcium Level 7.6 MG/DL (8.5-10.1) 8.0 MG/DL (8.5-10.1) Phosphorus Level 1.8 MG/DL (2.5-4.9) 3.0 MG/DL (2.5-4.9) Magnesium Level 2.9 MG/DL (1.8-2.4) 2.8 MG/DL (1.8-2.4) Iron Level 92 ug/dL (50-175) Total Iron Binding Capacity 100 ug/dL (250-450) Percent Iron Saturation 92 % (15-50) Unsaturated Iron Binding 8 ug/dL (112-346) Ferritin > 2000 NG/ML (8-388) Total Bilirubin 1.1 MG/DL (0.2-1.0) 1.7 MG/DL (0.2-1.0) Direct Bilirubin 0.0 MG/DL (0.0-0.3) 1.5 MG/DL (0.0-0.3) Gamma Glutamyl Transpeptidase 63 U/L (5-85) Aspartate Amino Transf (AST/SGOT) 40 U/L (15-37) 46 U/L (15-37) Alanine Aminotransferase (ALT/SGPT) 30 U/L (12-78) 30 U/L (12-78) Alkaline Phosphatase 75 U/L (46-116) 72 U/L (46-116) Lactate Dehydrogenase 979 U/L (81-234) Troponin I 0.033 ng/mL (0.000-0.056) C-Reactive Protein, Quantitative 41.8 mg/dL (0.00-0.90) Pro-B-Type Natriuretic Peptide 224 pg/mL (0-125) Total Protein 5.7 G/DL (6.4-8.2) 5.9 G/DL (6.4-8.2) Albumin 2.0 G/DL (3.4-5.0) 1.8 G/DL (3.4-5.0) Globulin 3.7 g/dL Albumin/Globulin Ratio 0.5 (1.0-2.7) Triglycerides Level 391 MG/DL (30-150) 432 MG/DL (30-150) Cholesterol Level 138 MG/DL (< 200) LDL Cholesterol 65 mg/dL (<100) HDL Cholesterol 12 MG/DL (40-60) Cholesterol/HDL Ratio 11.5 (3.3-4.4) Lipase 44 U/L (73-393) Vitamin B12 Level > 2000 PG/ML (193-986) Folate 4.7 NG/ML (8.6-58.9) Thyroid Stimulating Hormone (TSH) 0.562 uiU/mL (0.358-3.740) Hepatitis A IgM Antibody Negative (Negative) Hepatitis B Surface Antigen Negative (Negative) Hepatitis B Core IgM Antibody Negative (Negative) Hepatitis C Antibody <0.1 s/co ratio White Blood Count 6.5 K/UL (4.8-10.8) 5.7 K/UL (4.8-10.8) Red Blood Count 2.55 M/UL (4.70-6.10) 2.41 M/UL (4.70-6.10) Hemoglobin 8.2 G/DL (14.2-18.0) 7.7 G/DL (14.2-18.0) Hematocrit 22.5 % (42.0-52.0) 20.9 % (42.0-52.0) Mean Corpuscular Volume 88 FL (80-99) 87 FL (80-99) Mean Corpuscular Hemoglobin 32.2 PG (27.0-31.0) 31.8 PG (27.0-31.0) Mean Corpuscular Hemoglobin Concent 36.5 G/DL (32.0-36.0) 36.6 G/DL (32.0-36.0) Red Cell Distribution Width 14.5 % (11.6-14.8) 13.8 % (11.6-14.8) Platelet Count 8 K/UL (150-450) 22 K/UL (150-450) Mean Platelet Volume 15.4 FL (6.5-10.1) 5.4 FL (6.5-10.1) Neutrophils (%) (Auto) % (45.0-75.0) % (45.0-75.0) Lymphocytes (%) (Auto) % (20.0-45.0) % (20.0-45.0) Monocytes (%) (Auto) % (1.0-10.0) % (1.0-10.0) Eosinophils (%) (Auto) % (0.0-3.0) % (0.0-3.0) Basophils (%) (Auto) % (0.0-2.0) % (0.0-2.0) Differential Total Cells Counted 100 100 Neutrophils % (Manual) 23 % (45-75) 27 % (45-75) Lymphocytes % (Manual) 35 % (20-45) 33 % (20-45) Monocytes % (Manual) 17 % (1-10) 18 % (1-10) Eosinophils % (Manual) 0 % (0-3) 0 % (0-3) Basophils % (Manual) 0 % (0-2) 0 % (0-2) Blast Cells % 25 % (0-0) 22 % (0-0) Band Neutrophils 0 % (0-8) 0 % (0-8) Nucleated Red Blood Cells 4 /100 WBC Platelet Estimate Decreased Decreased Platelet Morphology Normal Normal Hypochromasia 2+ 3+ Anisocytosis 1+ 1+ Macrocytosis HIV (1&2) Antibody Rapid Negative (NEGATIVE) Spherocytes 2+ Arterial Blood pH 7.420 (7.350-7.450) Arterial Blood Partial Pressure CO2 33.0 mmHg (35.0-45.0) Arterial Blood Partial Pressure O2 72.0 mmHg (75.0-100.0) Arterial Blood HCO3 21.0 mmol/L (22.0-26.0) Arterial Blood Oxygen Saturation 92.5 % (95-100) Arterial Blood Base Excess -3.1 (-2-2) Guzman Test Positive Height (Feet): 5 Height (Inches): 8.00 Weight (Pounds): 178 Objective Physical Exam: Vitals: reviewed General: NAD HEENT: nc, at Neck: supple Chest: clear breath sounds bilaterally +intubated Cardiovascular: RRR, no s3, s4 Abdomen: soft, nontender, nd Extremities: no cce, normal range of motion Neuro: ++confused Nicolás Guerrero MD Dec 12, 2019 11:52
--- NOTE | 2019-12-12 11:56 | Pulmonology Progress Note ---
Assessment/Plan Assessment/Plan IMPRESSION: 1. Respiratory failure. 2. Severe hypoxemia. 3. Pneumonia. 4. Diabetes mellitus. 5. Thrombocytopenia. DISCUSSION: Admitted to the hospital. I will transfuse platelets. I will continue Plaquenil. Keep on respirator, adjust to keep comfortable on oxygenation. DVT prophylaxis, SCDs. Protonix IV. Grave prognosis. I will follow carefully. iMchele Ly M.D. Subjective Interval Events: None new. Constitutional: Reports: no symptoms HEENT: Repors: no symptoms Respiratory: Reports: no symptoms Cardiovascular: Reports: no symptoms Gastrointestinal/Abdominal: Reports: no symptoms Allergies: Coded Allergies: UNABLE TO ASSESS (Unverified , 12/10/19) Objective Last 24 Hour Vital Signs Date Time Temp Pulse Resp B/P (MAP) Pulse Ox O2 Delivery O2 Flow Rate FiO2 12/12/19 11:24 27 Mechanical Ventilator 50.0 70 12/12/19 11:05 105 25 70 12/12/19 10:44 27 Mechanical Ventilator 50.0 70 12/12/19 10:22 100.3 12/12/19 09:51 27 124/41 Mechanical Ventilator 50.0 70 12/12/19 09:35 96.4 12/12/19 09:30 115 30 125/34 96 Mechanical Ventilator 12/12/19 09:05 27 Mechanical Ventilator 50.0 70 12/12/19 09:00 119 34 70 12/12/19 09:00 115 32 163/46 98 Mechanical Ventilator 12/12/19 08:30 102 29 118/41 99 Mechanical Ventilator 12/12/19 08:00 Endotracheal Tube 12/12/19 08:00 70 12/12/19 08:00 100.5 100 28 116/45 98 Mechanical Ventilator 12/12/19 07:30 96 25 124/41 100 Mechanical Ventilator 12/12/19 07:00 96 27 124/41 99 Mechanical Ventilator 70 12/12/19 07:00 27 Mechanical Ventilator 70 12/12/19 07:00 27 124/41 Mechanical Ventilator 70 12/12/19 07:00 95 23 70 12/12/19 06:30 97 31 12/12/19 06:30 97 31 128/40 98 Mechanical Ventilator 70 12/12/19 06:00 97 31 124/41 98 Mechanical Ventilator 70 12/12/19 06:00 31 Mechanical Ventilator 70 12/12/19 06:00 31 124/41 Mechanical Ventilator 70 12/12/19 05:30 95 27 111/40 98 Mechanical Ventilator 70 12/12/19 05:08 99 22 70 12/12/19 05:00 26 Mechanical Ventilator 70 12/12/19 05:00 26 118/35 Mechanical Ventilator 70 12/12/19 05:00 93 26 118/35 93 Mechanical Ventilator 70 12/12/19 04:56 36 145/57 70 12/12/19 04:30 96 28 118/51 96 Mechanical Ventilator 70 12/12/19 04:15 98 30 129/45 95 Mechanical Ventilator 70 12/12/19 04:00 100 12/12/19 04:00 Endotracheal Tube 12/12/19 04:00 96.4 100 27 132/53 96 Mechanical Ventilator 70 12/12/19 04:00 27 Mechanical Ventilator 70 12/12/19 04:00 27 132/53 Mechanical Ventilator 70 12/12/19 04:00 70 12/12/19 03:30 103 30 99 Mechanical Ventilator 70 12/12/19 03:04 105 24 70 12/12/19 03:00 107 29 157/53 98 Mechanical Ventilator 70 12/12/19 03:00 29 Mechanical Ventilator 70 12/12/19 03:00 29 157/53 Mechanical Ventilator 70 12/12/19 02:30 91 18 100 Mechanical Ventilator 70 12/12/19 02:15 91 19 117/51 100 Mechanical Ventilator 70 12/12/19 02:00 97 20 133/53 100 Mechanical Ventilator 70 12/12/19 02:00 20 Mechanical Ventilator 70 12/12/19 02:00 20 133/53 Mechanical Ventilator 70 12/12/19 01:45 96 24 100 Mechanical Ventilator 50 12/12/19 01:30 99 21 103/42 100 Mechanical Ventilator 50 12/12/19 01:30 42 Mechanical Ventilator 70 12/12/19 01:15 36 Mechanical Ventilator 70 12/12/19 01:15 101 25 123/57 100 Mechanical Ventilator 50 12/12/19 01:00 27 Mechanical Ventilator 12/12/19 01:00 27 124/68 Mechanical Ventilator 12/12/19 01:00 106 22 95/42 100 Mechanical Ventilator 50 12/12/19 00:55 122 30 70 12/12/19 00:45 111 24 103/38 100 Mechanical Ventilator 50 12/12/19 00:30 113 24 113/43 100 Mechanical Ventilator 50 12/12/19 00:15 119 27 102/38 100 Mechanical Ventilator 50 12/12/19 00:10 98.9 12/12/19 00:00 Endotracheal Tube 12/12/19 00:00 28 Mechanical Ventilator 12/12/19 00:00 28 134/64 Mechanical Ventilator 12/12/19 00:00 126 28 124/47 99 Mechanical Ventilator 50 12/12/19 00:00 70 12/11/19 23:45 143 35 148/56 98 Mechanical Ventilator 50 12/11/19 23:37 148 12/11/19 23:30 153 37 135/47 97 Mechanical Ventilator 50 12/11/19 23:17 161 37 189/71 100 Mechanical Ventilator 50 12/11/19 23:15 162 37 100 Mechanical Ventilator 50 12/11/19 23:05 36 Mechanical Ventilator 70 12/11/19 23:03 36 180/121 Mechanical Ventilator 12/11/19 23:00 39 Mechanical Ventilator 70 12/11/19 23:00 39 185/99 Mechanical Ventilator 70 12/11/19 23:00 157 39 185/99 100 Mechanical Ventilator 50 12/11/19 22:45 135 28 195/66 99 Mechanical Ventilator 50 12/11/19 22:35 133 35 50 12/11/19 22:30 120 32 163/60 100 Mechanical Ventilator 50 12/11/19 22:15 113 28 156/65 100 Mechanical Ventilator 50 12/11/19 22:00 110 28 159/65 100 Mechanical Ventilator 50 12/11/19 22:00 28 Mechanical Ventilator 70 12/11/19 22:00 28 159/65 Mechanical Ventilator 70 12/11/19 21:45 112 28 121/57 100 Mechanical Ventilator 50 12/11/19 21:30 114 28 129/54 100 Mechanical Ventilator 50 12/11/19 21:15 116 28 135/50 100 Mechanical Ventilator 50 12/11/19 21:00 70 12/11/19 21:00 28 Mechanical Ventilator 70 12/11/19 21:00 28 142/61 Mechanical Ventilator 70 12/11/19 21:00 117 28 142/61 100 Mechanical Ventilator 50 12/11/19 20:45 120 29 145/65 100 Mechanical Ventilator 50 12/11/19 20:30 119 29 117/40 83 Mechanical Ventilator 50 12/11/19 20:15 114 34 121/60 98 Mechanical Ventilator 50 12/11/19 20:00 50 12/11/19 20:00 45 Mechanical Ventilator 70 12/11/19 20:00 45 119/41 Mechanical Ventilator 70 12/11/19 20:00 Endotracheal Tube 12/11/19 20:00 102.0 115 45 119/41 98 Mechanical Ventilator 50 12/11/19 19:45 116 50 123/46 98 Mechanical Ventilator 50 12/11/19 19:30 116 49 125/47 98 Mechanical Ventilator 50 12/11/19 19:25 117 12/11/19 19:15 119 36 121/55 98 Mechanical Ventilator 50 12/11/19 19:10 117 29 50 12/11/19 19:00 117 32 121/52 98 Mechanical Ventilator 50 12/11/19 19:00 32 121/52 Mechanical Ventilator 50 12/11/19 18:30 102.4 119 34 122/54 99 Mechanical Ventilator 50 12/11/19 18:00 34 Mechanical Ventilator 100 12/11/19 18:00 33 124/54 Mechanical Ventilator 50 12/11/19 18:00 120 34 129/57 97 Mechanical Ventilator 50 12/11/19 17:42 27 119/50 Mechanical Ventilator 100 12/11/19 17:30 119 25 119/50 97 Mechanical Ventilator 50 12/11/19 17:00 27 Mechanical Ventilator 100 12/11/19 17:00 27 119/50 Mechanical Ventilator 100 12/11/19 17:00 102.2 120 27 120/56 96 Mechanical Ventilator 50 12/11/19 16:30 121 29 127/55 96 Mechanical Ventilator 50 12/11/19 16:00 50 12/11/19 16:00 27 Endotracheal Tube 50 12/11/19 16:00 27 122/51 Endotracheal Tube 50 12/11/19 16:00 122 12/11/19 16:00 Endotracheal Tube 50.0 12/11/19 16:00 122 27 122/51 96 Mechanical Ventilator 50 12/11/19 15:30 122 28 109/60 96 Mechanical Ventilator 50 12/11/19 15:29 122 28 50 12/11/19 15:00 123 29 119/56 96 Mechanical Ventilator 50 12/11/19 15:00 29 Endotracheal Tube 50 12/11/19 15:00 29 119/56 Endotracheal Tube 50 12/11/19 14:30 122 32 127/57 96 Mechanical Ventilator 50 12/11/19 14:00 34 Endotracheal Tube 50 12/11/19 14:00 34 116/47 Endotracheal Tube 50 12/11/19 14:00 122 34 116/47 96 Mechanical Ventilator 50 12/11/19 13:30 101.7 123 46 112/52 96 Mechanical Ventilator 50 12/11/19 13:00 28 Endotracheal Tube 50 12/11/19 13:00 28 133/50 Endotracheal Tube 50 12/11/19 13:00 123 28 133/50 97 Mechanical Ventilator 50 12/11/19 12:50 30 130/61 Endotracheal Tube 50 12/11/19 12:50 27 130/61 Endotracheal Tube 50 12/11/19 12:30 123 28 121/55 98 Mechanical Ventilator 50 12/11/19 12:00 120 12/11/19 12:00 Endotracheal Tube 50.0 12/11/19 12:00 50 12/11/19 12:00 27 Endotracheal Tube 50 12/11/19 12:00 27 120/53 Endotracheal Tube 50 12/11/19 12:00 101.5 120 27 127/53 98 Mechanical Ventilator 50 Intake and Output 12/11/19 12/12/19 19:00 07:00 Intake Total 1430.8529 ml 1649.776 ml Output Total 790 ml 860 ml Balance 640.8529 ml 789.776 ml IV Total 1330.8529 ml 1589.776 ml Other 100 ml 60 ml Output Urine Total 790 ml 860 ml General Appearance: no acute distress HEENT: normocephalic Respiratory/Chest: chest wall non-tender Cardiovascular: normal peripheral pulses Abdomen: normal bowel sounds Microbiology Date/Time Source Procedure Growth Status 12/10/19 17:55 Blood Blood Culture - Preliminary NO GROWTH AFTER 24 HOURS Resulted 12/10/19 17:45 Blood Blood Culture - Preliminary Resulted 12/10/19 17:50 Nasal Nares - Final Complete 12/10/19 17:50 Nasal Nares - Final Complete 12/10/19 17:45 Nasopharynx Coronavirus COVID-19 PCR ([facility]) - Final Complete Laboratory Tests 12/11/19 12:50: Reticulocyte Count 0.9, Sickle Cell Screen [Pending], Prothrombin Time 12.1H, Prothromb Time International Ratio 1.1, Sodium Level 158H, Potassium Level 4.6, Chloride Level 123H, Carbon Dioxide Level 19L, Anion Gap 16H, Blood Urea Nitrogen 54H, Creatinine 1.1, Estimat Glomerular Filtration Rate > 60, Glucose Level 143H, Uric Acid 5.4, Calcium Level 7.6L, Phosphorus Level 1.8L, Magnesium Level 2.9H, Iron Level 92, Total Iron Binding Capacity 100L, Percent Iron Saturation 92H, Unsaturated Iron Binding 8L, Ferritin > 2000H, Total Bilirubin 1.1H, Direct Bilirubin 0.0, Gamma Glutamyl Transpeptidase 63, Aspartate Amino Transf (AST/SGOT) 40H, Alanine Aminotransferase (ALT/SGPT) 30, Alkaline Phosphatase 75, Lactate Dehydrogenase 979H, Troponin I 0.033, C-Reactive Protein , Quantitative 41.8H, Pro-B-Type Natriuretic Peptide 224H, Total Protein 5.7L, Albumin 2.0L, Globulin 3.7, Albumin/Globulin Ratio 0.5L, Triglycerides Level 391H, Cholesterol Level 138, LDL Cholesterol 65, HDL Cholesterol 12L, Cholesterol/HDL Ratio 11.5H, Lipase 44L, Vitamin B12 Level > 2000H, Folate 4.7L , Thyroid Stimulating Hormone (TSH) 0.562, Hepatitis A IgM Antibody Negative, Hepatitis B Surface Antigen Negative, Hepatitis B Core IgM Antibody Negative, Hepatitis C Antibody <0.1 12/12/19 03:47: Sodium Level 146#H, Potassium Level 4.4, Chloride Level 115H, Carbon Dioxide Level 22, Anion Gap 9, Blood Urea Nitrogen 39H, Creatinine 1.1, Estimat Glomerular Filtration Rate > 60, Glucose Level 317#H, Calcium Level 8.0L, Phosphorus Level 3.0, Magnesium Level 2.8H, Total Bilirubin 1.7H, Direct Bilirubin 1.5H, Aspartate Amino Transf (AST/SGOT) 46H, Alanine Aminotransferase (ALT/SGPT) 30, Alkaline Phosphatase 72, Total Protein 5.9L, Albumin 1.8L, Triglycerides Level 432H, White Blood Count 6.5, Red Blood Count 2.55L, Hemoglobin 8.2L, Hematocrit 22.5L, Mean Corpuscular Volume 88, Mean Corpuscular Hemoglobin 32.2H, Mean Corpuscular Hemoglobin Concent 36.5H, Red Cell Distribution Width 14.5, Platelet Count 8*L, Mean Platelet Volume 15.4H, Neutrophils (%) (Auto) , Lymphocytes (%) (Auto) , Monocytes (%) (Auto) , Eosinophils (%) (Auto) , Basophils (%) (Auto) , Differential Total Cells Counted 100, Neutrophils % (Manual) 23L, Lymphocytes % (Manual) 35, Monocytes % (Manual) 17H, Eosinophils % (Manual) 0, Basophils % (Manual) 0, Blast Cells % 25 *H, Band Neutrophils 0, Nucleated Red Blood Cells 4, Platelet Estimate DecreasedL, Platelet Morphology Normal, Hypochromasia 2+, Anisocytosis 1+, Macrocytosis , HIV (1&2) Antibody Rapid Negative 12/12/19 08:35: White Blood Count 5.7, Red Blood Count 2.41L, Hemoglobin 7.7L, Hematocrit 20.9L , Mean Corpuscular Volume 87, Mean Corpuscular Hemoglobin 31.8H, Mean Corpuscular Hemoglobin Concent 36.6H, Red Cell Distribution Width 13.8, Platelet Count 22#L, Mean Platelet Volume 5.4L, Neutrophils (%) (Auto) , Lymphocytes (%) (Auto) , Monocytes (%) (Auto) , Eosinophils (%) (Auto) , Basophils (%) (Auto) , Differential Total Cells Counted 100, Neutrophils % ( Manual) 27L, Lymphocytes % (Manual) 33, Monocytes % (Manual) 18H, Eosinophils % (Manual) 0, Basophils % (Manual) 0, Blast Cells % 22*H, Band Neutrophils 0, Platelet Estimate DecreasedL, Platelet Morphology Normal, Hypochromasia 3+, Anisocytosis 1+, Spherocytes 2+ 12/12/19 09:30: Arterial Blood pH 7.420, Arterial Blood Partial Pressure CO2 33.0L, Arterial Blood Partial Pressure O2 72.0L, Arterial Blood HCO3 21.0L, Arterial Blood Oxygen Saturation 92.5L, Arterial Blood Base Excess -3.1L, Guzman Test Positive Current Medications Medications (Trade) Dose Ordered Sig/Dariana Route PRN Reason Start Time Stop Time Status Last Admin Dose Admin Acetaminophen (Tylenol) 650 mg Q6H PRN ORAL Temp >100.5 12/11/19 13:00 01/10/20 12:59 12/12/19 09:52 Ceftriaxone Sodium 2 gm/ Sodium Chloride 55 ml @ 110 mls/hr Q24H IVPB 12/11/19 10:00 12/18/19 09:59 12/12/19 09:06 Dextrose (Dextrose 50%) 25 ml Q30M PRN IV Hypoglycemia 12/11/19 17:30 03/10/20 17:29 Dextrose (Dextrose 50%) 50 ml Q30M PRN IV Hypoglycemia 12/11/19 17:30 03/10/20 17:29 Fentanyl Citrate 1000 mcg/Sodium Chloride 100 ml @ 0 mls/hr Q24H IV 12/12/19 10:45 12/19/19 10:44 12/12/19 11:24 Folic Acid (Folate) 2 mg DAILY NG 12/12/19 09:00 01/11/20 08:59 12/12/19 09:05 Hydroxychloroquine Sulfate (Plaquenil) 200 mg BID ORAL 12/12/19 09:00 12/15/19 18:01 12/12/19 09:05 Insulin Aspart (NovoLOG) Q4H SUBQ 12/11/19 18:00 03/10/20 17:59 12/12/19 09:07 Insulin Detemir (Levemir) 10 units BID SUBQ 12/11/19 18:00 03/10/20 17:59 12/12/19 09:09 Midazolam HCl 100 ml @ 0 mls/hr Q24H IV 12/12/19 10:44 12/19/19 10:43 Pantoprazole (Protonix) 40 mg EVERY 12 HOURS IVP 12/11/19 10:00 01/10/20 09:59 12/12/19 09:05 Propofol 100 ml @ 0 mls/hr Q24H IV 12/11/19 00:00 12/13/19 00:00 12/12/19 09:51 Sodium Chloride 1,000 ml @ 100 mls/hr Q10H IV 12/11/19 10:00 01/10/20 09:59 12/12/19 05:51 Michele Ly MD Dec 12, 2019 11:56
--- NOTE | 2019-12-12 12:00 | NUR ---
NURSE NOTES: Propofol drip was stopped completely per Dr Ly's order and replaced with Fentanyl drip. Remaining volume of propofol including the IV line was discarded, after witnessed waste by another RN, (Kenton MAHAN).
--- NOTE | 2019-12-12 13:36 | NUR ---
DISCHARGE/TRANSFER: NOTE ORDER RECEIVED FOR TRANSFER TO [facility] FOR CHEMO - AML, COVID (+) AND ORALLY INTUBATED. PT IS NOT A CANDIDATE FOR THE [facility] D/T HIS IMMUNOCOMPROMISED STATUS AND THE SERVICES REQUIRED. PATIENT PLACED ON THE MAC LIST [facility] [place] [facility] # PENDING Addendum: 12/12/19 at 1623 by Corrie Raines F/U CALL PLACED TO [facility] [place] [phone] [facility] [place] NO BEDS AVAILABLE AT ANY FACILITY AT THIS TIME [facility] ARE TRYING TO DECOMPRESS THEIR OWN FACILTIES PT REFERENCE # [id number] CHARGE NURSE CECILIA DIALLO
--- NOTE | 2019-12-12 14:00 | NUR ---
NURSE NOTES: Pt was started on NGT feeding Glucerna 1.5 at starting rate of 15ml per order by Dr Miller.
--- NOTE | 2019-12-12 15:00 | NUR ---
NURSE NOTES: Spoke with Dr Guerrero. 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 Per MD, order in place for case management to transfer pt to another hospital for higher level of care for chemotherapy. notified regarding pt remaining on vent support and unable to wean pt due to not meeting criteria. Per MD place transfer on hold for now. Charge nurse aware, and care management notified.
--- NOTE | 2019-12-12 15:05 | General Progress Note ---
Assessment/Plan Problem List: (1) Diabetes mellitus out of control ICD Codes: E11.65 - Type 2 diabetes mellitus with hyperglycemia SNOMED: 10050280, 556754115 (2) Severe thrombocytopenia ICD Codes: D69.6 - Thrombocytopenia, unspecified SNOMED: 848347665 (3) COVID-19 virus infection ICD Codes: U07.1 - COVID-19 SNOMED: 710109344 (4) Acute respiratory failure ICD Codes: J96.00 - Acute respiratory failure, unspecified whether with hypoxia or hypercapnia SNOMED: 01461410 (5) MERRITT (acute kidney injury) ICD Codes: N17.9 - Acute kidney failure, unspecified SNOMED: 0316567, 19670769 (6) Hyperglycemia ICD Codes: R73.9 - Hyperglycemia, unspecified SNOMED: 85818644 (7) Anemia ICD Codes: D64.9 - Anemia, unspecified SNOMED: 168009835 (8) Respiratory failure ICD Codes: J96.90 - Respiratory failure, unspecified, unspecified whether with hypoxia or hypercapnia SNOMED: 115566396 (9) Pneumonia ICD Codes: J18.9 - Pneumonia, unspecified organism SNOMED: 274361149 Assessment/Plan: add Novolog 5 units every 4 hours continue Levemir 10 units bid continue Novolog sliding scale every 4 hours Subjective ROS Limited/Unobtainable: Yes Allergies: Coded Allergies: UNABLE TO ASSESS (Unverified , 12/10/19) Subjective in ICU glucose values are elevated no evidence of DKA Item Value Date Time Bedside Blood Glucose 235 mg/dl H 12/12/19 1428 Bedside Blood Glucose 300 mg/dl H 12/12/19 0909 Bedside Blood Glucose 263 mg/dl H 12/12/19 0553 Bedside Blood Glucose 275 mg/dl H 12/12/19 0208 Bedside Blood Glucose 228 mg/dl H 12/11/19 2216 Bedside Blood Glucose 144 mg/dl H 12/11/19 1834 Bedside Blood Glucose 149 mg/dl H 12/11/19 1400 Bedside Blood Glucose 135 mg/dl H 12/11/19 1000 Objective Last 24 Hour Vital Signs Date Time Temp Pulse Resp B/P (MAP) Pulse Ox O2 Delivery O2 Flow Rate FiO2 12/12/19 14:31 29 Mechanical Ventilator 50.0 70 12/12/19 13:01 117 29 70 12/12/19 12:00 70 12/12/19 12:00 108 12/12/19 12:00 100.3 112 31 101/46 97 Mechanical Ventilator 12/12/19 12:00 Endotracheal Tube 12/12/19 11:54 100.3 12/12/19 11:30 106 27 99/50 100 Mechanical Ventilator 12/12/19 11:24 27 Mechanical Ventilator 50.0 70 12/12/19 11:05 105 25 70 12/12/19 11:00 107 28 80/28 97 Mechanical Ventilator 12/12/19 10:44 27 Mechanical Ventilator 50.0 70 12/12/19 10:30 110 27 82/31 96 Mechanical Ventilator 12/12/19 10:22 100.3 12/12/19 10:00 108 27 97/35 98 Mechanical Ventilator 12/12/19 09:51 27 124/41 Mechanical Ventilator 50.0 70 12/12/19 09:35 96.4 12/12/19 09:30 115 30 125/34 96 Mechanical Ventilator 12/12/19 09:05 27 Mechanical Ventilator 50.0 70 12/12/19 09:00 119 34 70 12/12/19 09:00 115 32 163/46 98 Mechanical Ventilator 12/12/19 08:30 102 29 118/41 99 Mechanical Ventilator 12/12/19 08:00 Endotracheal Tube 12/12/19 08:00 70 12/12/19 08:00 100.5 100 28 116/45 98 Mechanical Ventilator 12/12/19 08:00 96 12/12/19 07:30 96 25 124/41 100 Mechanical Ventilator 12/12/19 07:00 96 27 124/41 99 Mechanical Ventilator 70 12/12/19 07:00 27 Mechanical Ventilator 70 12/12/19 07:00 27 124/41 Mechanical Ventilator 70 12/12/19 07:00 95 23 70 12/12/19 06:30 97 31 12/12/19 06:30 97 31 128/40 98 Mechanical Ventilator 70 12/12/19 06:00 97 31 124/41 98 Mechanical Ventilator 70 12/12/19 06:00 31 Mechanical Ventilator 70 12/12/19 06:00 31 124/41 Mechanical Ventilator 70 12/12/19 05:30 95 27 111/40 98 Mechanical Ventilator 70 12/12/19 05:08 99 22 70 12/12/19 05:00 26 Mechanical Ventilator 70 12/12/19 05:00 26 118/35 Mechanical Ventilator 70 12/12/19 05:00 93 26 118/35 93 Mechanical Ventilator 70 12/12/19 04:56 36 145/57 70 12/12/19 04:30 96 28 118/51 96 Mechanical Ventilator 70 12/12/19 04:15 98 30 129/45 95 Mechanical Ventilator 70 12/12/19 04:00 100 12/12/19 04:00 Endotracheal Tube 12/12/19 04:00 96.4 100 27 132/53 96 Mechanical Ventilator 70 12/12/19 04:00 27 Mechanical Ventilator 70 12/12/19 04:00 27 132/53 Mechanical Ventilator 70 12/12/19 04:00 70 12/12/19 03:30 103 30 99 Mechanical Ventilator 70 12/12/19 03:04 105 24 70 12/12/19 03:00 107 29 157/53 98 Mechanical Ventilator 70 12/12/19 03:00 29 Mechanical Ventilator 70 12/12/19 03:00 29 157/53 Mechanical Ventilator 70 12/12/19 02:30 91 18 100 Mechanical Ventilator 70 12/12/19 02:15 91 19 117/51 100 Mechanical Ventilator 70 12/12/19 02:00 97 20 133/53 100 Mechanical Ventilator 70 12/12/19 02:00 20 Mechanical Ventilator 70 12/12/19 02:00 20 133/53 Mechanical Ventilator 70 12/12/19 01:45 96 24 100 Mechanical Ventilator 50 12/12/19 01:30 99 21 103/42 100 Mechanical Ventilator 50 12/12/19 01:30 42 Mechanical Ventilator 70 12/12/19 01:15 36 Mechanical Ventilator 70 12/12/19 01:15 101 25 123/57 100 Mechanical Ventilator 50 12/12/19 01:00 27 Mechanical Ventilator 12/12/19 01:00 27 124/68 Mechanical Ventilator 12/12/19 01:00 106 22 95/42 100 Mechanical Ventilator 50 12/12/19 00:55 122 30 70 12/12/19 00:45 111 24 103/38 100 Mechanical Ventilator 50 12/12/19 00:30 113 24 113/43 100 Mechanical Ventilator 50 12/12/19 00:15 119 27 102/38 100 Mechanical Ventilator 50 12/12/19 00:10 98.9 12/12/19 00:00 Endotracheal Tube 12/12/19 00:00 28 Mechanical Ventilator 12/12/19 00:00 28 134/64 Mechanical Ventilator 12/12/19 00:00 126 28 124/47 99 Mechanical Ventilator 50 12/12/19 00:00 70 12/11/19 23:45 143 35 148/56 98 Mechanical Ventilator 50 12/11/19 23:37 148 12/11/19 23:30 153 37 135/47 97 Mechanical Ventilator 50 12/11/19 23:17 161 37 189/71 100 Mechanical Ventilator 50 12/11/19 23:15 162 37 100 Mechanical Ventilator 50 12/11/19 23:05 36 Mechanical Ventilator 70 12/11/19 23:03 36 180/121 Mechanical Ventilator 12/11/19 23:00 39 Mechanical Ventilator 70 12/11/19 23:00 39 185/99 Mechanical Ventilator 70 12/11/19 23:00 157 39 185/99 100 Mechanical Ventilator 50 12/11/19 22:45 135 28 195/66 99 Mechanical Ventilator 50 12/11/19 22:35 133 35 50 12/11/19 22:30 120 32 163/60 100 Mechanical Ventilator 50 12/11/19 22:15 113 28 156/65 100 Mechanical Ventilator 50 12/11/19 22:00 110 28 159/65 100 Mechanical Ventilator 50 12/11/19 22:00 28 Mechanical Ventilator 70 12/11/19 22:00 28 159/65 Mechanical Ventilator 70 12/11/19 21:45 112 28 121/57 100 Mechanical Ventilator 50 12/11/19 21:30 114 28 129/54 100 Mechanical Ventilator 50 12/11/19 21:15 116 28 135/50 100 Mechanical Ventilator 50 12/11/19 21:00 70 12/11/19 21:00 28 Mechanical Ventilator 70 12/11/19 21:00 28 142/61 Mechanical Ventilator 70 12/11/19 21:00 117 28 142/61 100 Mechanical Ventilator 50 12/11/19 20:45 120 29 145/65 100 Mechanical Ventilator 50 12/11/19 20:30 119 29 117/40 83 Mechanical Ventilator 50 12/11/19 20:15 114 34 121/60 98 Mechanical Ventilator 50 12/11/19 20:00 50 12/11/19 20:00 45 Mechanical Ventilator 70 12/11/19 20:00 45 119/41 Mechanical Ventilator 70 12/11/19 20:00 Endotracheal Tube 12/11/19 20:00 102.0 115 45 119/41 98 Mechanical Ventilator 50 12/11/19 19:45 116 50 123/46 98 Mechanical Ventilator 50 12/11/19 19:30 116 49 125/47 98 Mechanical Ventilator 50 12/11/19 19:25 117 12/11/19 19:15 119 36 121/55 98 Mechanical Ventilator 50 12/11/19 19:10 117 29 50 12/11/19 19:00 117 32 121/52 98 Mechanical Ventilator 50 12/11/19 19:00 32 121/52 Mechanical Ventilator 50 12/11/19 18:30 102.4 119 34 122/54 99 Mechanical Ventilator 50 12/11/19 18:00 34 Mechanical Ventilator 100 12/11/19 18:00 33 124/54 Mechanical Ventilator 50 12/11/19 18:00 120 34 129/57 97 Mechanical Ventilator 50 12/11/19 17:42 27 119/50 Mechanical Ventilator 100 12/11/19 17:30 119 25 119/50 97 Mechanical Ventilator 50 12/11/19 17:00 27 Mechanical Ventilator 100 12/11/19 17:00 27 119/50 Mechanical Ventilator 100 12/11/19 17:00 102.2 120 27 120/56 96 Mechanical Ventilator 50 12/11/19 16:30 121 29 127/55 96 Mechanical Ventilator 50 12/11/19 16:00 50 12/11/19 16:00 27 Endotracheal Tube 50 12/11/19 16:00 27 122/51 Endotracheal Tube 50 12/11/19 16:00 122 12/11/19 16:00 Endotracheal Tube 50.0 12/11/19 16:00 122 27 122/51 96 Mechanical Ventilator 50 12/11/19 15:30 122 28 109/60 96 Mechanical Ventilator 50 12/11/19 15:29 122 28 50 Intake and Output 12/11/19 12/12/19 19:00 07:00 Intake Total 1430.8529 ml 1649.776 ml Output Total 790 ml 860 ml Balance 640.8529 ml 789.776 ml IV Total 1330.8529 ml 1589.776 ml Other 100 ml 60 ml Output Urine Total 790 ml 860 ml Laboratory Tests 12/12/19 03:47: White Blood Count 6.5, Red Blood Count 2.55L, Hemoglobin 8.2L, Hematocrit 22.5L , Mean Corpuscular Volume 88, Mean Corpuscular Hemoglobin 32.2H, Mean Corpuscular Hemoglobin Concent 36.5H, Red Cell Distribution Width 14.5, Platelet Count 8*L, Mean Platelet Volume 15.4H, Neutrophils (%) (Auto) , Lymphocytes (%) (Auto) , Monocytes (%) (Auto) , Eosinophils (%) (Auto) , Basophils (%) (Auto) , Differential Total Cells Counted 100, Neutrophils % ( Manual) 23L, Lymphocytes % (Manual) 35, Monocytes % (Manual) 17H, Eosinophils % (Manual) 0, Basophils % (Manual) 0, Blast Cells % 25*H, Band Neutrophils 0, Nucleated Red Blood Cells 4, Platelet Estimate DecreasedL, Platelet Morphology Normal, Hypochromasia 2+, Anisocytosis 1+, Macrocytosis , Sodium Level 146#H, Potassium Level 4.4, Chloride Level 115H, Carbon Dioxide Level 22, Anion Gap 9, Blood Urea Nitrogen 39H, Creatinine 1.1, Estimat Glomerular Filtration Rate > 60 , Glucose Level 317#H, Uric Acid 2.4L, Calcium Level 8.0L, Phosphorus Level 3.0 , Magnesium Level 2.8H, Total Bilirubin 1.7H, Direct Bilirubin 1.5H, Aspartate Amino Transf (AST/SGOT) 46H, Alanine Aminotransferase (ALT/SGPT) 30, Alkaline Phosphatase 72, Total Protein 5.9L, Albumin 1.8L, Triglycerides Level 432H, HIV (1&2) Antibody Rapid Negative 12/12/19 08:35: White Blood Count 5.7, Red Blood Count 2.41L, Hemoglobin 7.7L, Hematocrit 20.9L , Mean Corpuscular Volume 87, Mean Corpuscular Hemoglobin 31.8H, Mean Corpuscular Hemoglobin Concent 36.6H, Red Cell Distribution Width 13.8, Platelet Count 22#L, Mean Platelet Volume 5.4L, Neutrophils (%) (Auto) , Lymphocytes (%) (Auto) , Monocytes (%) (Auto) , Eosinophils (%) (Auto) , Basophils (%) (Auto) , Differential Total Cells Counted 100, Neutrophils % ( Manual) 27L, Lymphocytes % (Manual) 33, Monocytes % (Manual) 18H, Eosinophils % (Manual) 0, Basophils % (Manual) 0, Blast Cells % 22*H, Band Neutrophils 0, Platelet Estimate DecreasedL, Platelet Morphology Normal, Hypochromasia 3+, Anisocytosis 1+, Spherocytes 2+ 12/12/19 09:30: Arterial Blood pH 7.420, Arterial Blood Partial Pressure CO2 33.0L, Arterial Blood Partial Pressure O2 72.0L, Arterial Blood HCO3 21.0L, Arterial Blood Oxygen Saturation 92.5L, Arterial Blood Base Excess -3.1L, Guzman Test Positive 12/12/19 09:35: Fibrinogen 406H Height (Feet): 5 Height (Inches): 8.00 Weight (Pounds): 178 General Appearance: severe distress Neck: normal alignment Cardiovascular: tachycardia Respiratory/Chest: decreased breath sounds Abdomen: normal bowel sounds Objective Current Medications Medications (Trade) Dose Ordered Sig/Dariana Route PRN Reason Start Time Stop Time Status Last Admin Dose Admin Acetaminophen (Tylenol) 650 mg Q6H PRN ORAL Temp >100.5 12/11/19 13:00 01/10/20 12:59 12/12/19 09:52 Ceftriaxone Sodium 2 gm/ Sodium Chloride 55 ml @ 110 mls/hr Q24H IVPB 12/11/19 10:00 12/18/19 09:59 12/12/19 09:06 Dextrose (Dextrose 50%) 25 ml Q30M PRN IV Hypoglycemia 12/11/19 17:30 03/10/20 17:29 Dextrose (Dextrose 50%) 50 ml Q30M PRN IV Hypoglycemia 12/11/19 17:30 03/10/20 17:29 Fentanyl Citrate 1000 mcg/Sodium Chloride 100 ml @ 0 mls/hr Q24H IV 12/12/19 10:45 12/19/19 10:44 12/12/19 11:24 Folic Acid (Folate) 2 mg DAILY NG 12/12/19 09:00 01/11/20 08:59 12/12/19 09:05 Hydroxychloroquine Sulfate (Plaquenil) 200 mg BID ORAL 12/12/19 09:00 12/15/19 18:01 12/12/19 09:05 Insulin Aspart (NovoLOG) Q4H SUBQ 12/11/19 18:00 03/10/20 17:59 12/12/19 14:28 Insulin Detemir (Levemir) 10 units BID SUBQ 12/11/19 18:00 03/10/20 17:59 12/12/19 09:09 Midazolam HCl 100 ml @ 0 mls/hr Q24H IV 12/12/19 10:44 12/19/19 10:43 12/12/19 14:31 Pantoprazole (Protonix) 40 mg EVERY 12 HOURS IVP 12/11/19 10:00 01/10/20 09:59 12/12/19 09:05 Propofol 100 ml @ 0 mls/hr Q24H IV 12/11/19 00:00 12/13/19 00:00 12/12/19 09:51 Sodium Chloride 1,000 ml @ 100 mls/hr Q10H IV 12/11/19 10:00 01/10/20 09:59 12/12/19 14:29 German Becerril MD Dec 12, 2019 15:05
--- NOTE | 2019-12-12 16:04 | NUR ---
CASE MANAGEMENT: INITIAL REVIEW 12/10/2019 39 YO M HERIBERTO FROM HOME CC: DYSPNEA PMHx: DEFERRED SI:COVID R/O PNA T 96.3 HR 130 RR 35 B/P 112/60 SATS 94^ ON 15L/NRB LABS: NA 128 CL 90 CO2 14 BUN 90 CR 2.6 GLU 1247 CA 8 TBILI 2.4 DBILI 1.6 AST 40 BNP 328 IS:NS BOLUS X1 CEFTRIAXONE IV X1 AZITHROMYCIN IV X1 CXR Interpretation: no effusion, other - Bilateral patchy infiltrates heart size normal EKG Rhythm: no PVC's, no ectopy, other - sinus Tach PATIENT ADMITTED TO ICU 12/10/2019 @ 1757 DCP: TO BE DETERMINED 12/11/2019 SI:COVID R/O PNA T 98.9 HR 126 RR 28 B/P 124/47 SATS 99% ON ETT FIO2 70 LABS: PLT 8 BLAST CELLS 21 NA 154 CL 118 BUN 63 GLU 141 CA 7.8 AST 38 IS:NA @ 100 ML/HR PLAQUENIL PO BID LEVEMIR SUBQ BID PROPOFOL IV Q24H CEFTRIAXONE IV Q24H FENTANYL IV PER PARAMETERS MIDAZOLAM IV PER PARAMETERS INSULIN ASPART SUBQ Q4H ICU DCP: TO BE DETERMINED PLAN OF CARE: US abd to evaluate for cirrhosis and hsm ordered continue Plaquenil transfuse platelets 12/12/2019 SI:COVID R/O PNA T 100.3 HR 108 RR 31 B/P 101/46 SATS 97% ON ETT FIO2 70 LABS: NA 146 BUN 39 CA 8 GLU 317 IS:NA @ 100 ML/HR PLAQUENIL PO BID LEVEMIR SUBQ BID PROPOFOL IV Q24H CEFTRIAXONE IV Q24H FENTANYL IV PER PARAMETERS MIDAZOLAM IV PER PARAMETERS INSULIN ASPART SUBQ Q4H ICU DCP: TO BE DETERMINED PLAN OF CARE: POSSIBLE TRANSFER TO [facility] PT IN URGENT NEED OF CHEMO INTERQUAL MET
--- NOTE | 2019-12-12 18:00 | NUR ---
NURSE NOTES: Dr Rodriguez was notified regarding preliminary blood culture results of gram + cocci in clusters and pt's temp of 103F axillary. Order received for Vanco per pharmacy to dose. No additional orders at this time.
--- NOTE | 2019-12-12 18:30 | NUR ---
NURSE NOTES: Pt was administered Tylenol per PRN order for Temp of 103F axillary/104F rectal. Cooling measures are in place with cooling blanket and ice water flush via NGT, ice/under pt's arm.
--- NOTE | 2019-12-12 19:30 | NUR ---
HAND-OFF: Report given to Diana MAHAN. Endorsed plan of care.
--- NOTE | 2019-12-12 19:30 | NUR ---
NURSE NOTES: Received patient from [facility]. patient sedated withdraws to pain. 7.5 ETT at 26cm on ventilator AC 16 TV 600 FiO2 70% and PEEP 10. patient current temp 102.7F axillary. patient running versed 8mg/hr and fentanyl 100mcg/hr through PIV clean and asymptomatic. left Nare NGT running Glucerna 1.5 @ 15m/hr. jarquin catheter draining dark ronda urine. will continue to monitor.
--- NOTE | 2019-12-12 20:38 | General Progress Note ---
Assessment/Plan Problem List: (1) Pneumonia ICD Codes: J18.9 - Pneumonia, unspecified organism SNOMED: 635550471 (2) Anemia ICD Codes: D64.9 - Anemia, unspecified SNOMED: 867046180 (3) Acute respiratory failure ICD Codes: J96.00 - Acute respiratory failure, unspecified whether with hypoxia or hypercapnia SNOMED: 68017391 (4) Severe thrombocytopenia ICD Codes: D69.6 - Thrombocytopenia, unspecified SNOMED: 005269193 (5) Respiratory failure ICD Codes: J96.90 - Respiratory failure, unspecified, unspecified whether with hypoxia or hypercapnia SNOMED: 606997175 Assessment/Plan: poor prognosis thrombocytopenia 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 pt is unstable for transfer and chemo intubated pna resp failure Subjective ROS Limited/Unobtainable: Yes Allergies: Coded Allergies: UNABLE TO ASSESS (Unverified , 12/10/19) Objective Last 24 Hour Vital Signs Date Time Temp Pulse Resp B/P (MAP) Pulse Ox O2 Delivery O2 Flow Rate FiO2 12/12/19 19:41 123 29 70 12/12/19 19:30 120 30 110/56 99 Mechanical Ventilator 12/12/19 19:00 125 30 111/56 99 Mechanical Ventilator 12/12/19 19:00 20 Mechanical Ventilator 12/12/19 19:00 26 Mechanical Ventilator 12/12/19 18:52 103.0 12/12/19 18:30 128 29 116/61 99 Mechanical Ventilator 12/12/19 18:00 129 28 117/49 100 Mechanical Ventilator 12/12/19 18:00 19 Mechanical Ventilator 12/12/19 18:00 18 Mechanical Ventilator 12/12/19 17:30 129 28 122/53 98 Mechanical Ventilator 12/12/19 17:28 126 28 70 12/12/19 17:00 18 12/12/19 17:00 18 Mechanical Ventilator 12/12/19 17:00 103.0 127 29 120/56 97 Mechanical Ventilator 12/12/19 16:30 127 29 118/56 96 Mechanical Ventilator 12/12/19 16:00 70 12/12/19 16:00 128 12/12/19 16:00 18 Mechanical Ventilator 12/12/19 16:00 19 Mechanical Ventilator 12/12/19 16:00 Mechanical Ventilator 12/12/19 16:00 126 31 100/63 95 Mechanical Ventilator 12/12/19 15:30 127 29 110/56 96 Mechanical Ventilator 12/12/19 15:01 100.3 12/12/19 15:00 127 30 70 12/12/19 15:00 18 Mechanical Ventilator 12/12/19 15:00 127 30 123/47 96 Mechanical Ventilator 12/12/19 14:31 29 Mechanical Ventilator 50.0 70 12/12/19 14:30 124 27 115/52 98 Mechanical Ventilator 12/12/19 14:00 120 28 115/52 97 Mechanical Ventilator 12/12/19 13:30 120 29 110/46 97 Mechanical Ventilator 12/12/19 13:01 117 29 70 12/12/19 13:00 118 29 105/44 96 Mechanical Ventilator 12/12/19 12:30 117 31 92/42 97 Mechanical Ventilator 12/12/19 12:00 70 12/12/19 12:00 108 12/12/19 12:00 100.3 112 31 101/46 97 Mechanical Ventilator 12/12/19 12:00 Endotracheal Tube 12/12/19 11:54 100.3 12/12/19 11:30 106 27 99/50 100 Mechanical Ventilator 12/12/19 11:24 27 Mechanical Ventilator 50.0 70 12/12/19 11:24 26 149/79 Mechanical Ventilator 12/12/19 11:05 105 25 70 12/12/19 11:00 107 28 80/28 97 Mechanical Ventilator 12/12/19 11:00 26 162/74 Mechanical Ventilator 12/12/19 10:44 27 Mechanical Ventilator 50.0 70 12/12/19 10:30 110 27 82/31 96 Mechanical Ventilator 12/12/19 10:00 108 27 97/35 98 Mechanical Ventilator 12/12/19 09:51 27 124/41 Mechanical Ventilator 50.0 70 12/12/19 09:35 96.4 12/12/19 09:30 115 30 125/34 96 Mechanical Ventilator 12/12/19 09:05 27 Mechanical Ventilator 50.0 70 12/12/19 09:00 119 34 70 12/12/19 09:00 115 32 163/46 98 Mechanical Ventilator 12/12/19 08:30 102 29 118/41 99 Mechanical Ventilator 12/12/19 08:00 Endotracheal Tube 12/12/19 08:00 70 12/12/19 08:00 100.5 100 28 116/45 98 Mechanical Ventilator 12/12/19 08:00 28 134/67 Mechanical Ventilator 12/12/19 08:00 96 12/12/19 07:30 96 25 124/41 100 Mechanical Ventilator 12/12/19 07:00 96 27 124/41 99 Mechanical Ventilator 70 12/12/19 07:00 27 Mechanical Ventilator 70 12/12/19 07:00 27 124/41 Mechanical Ventilator 70 12/12/19 07:00 95 23 70 12/12/19 06:30 97 31 12/12/19 06:30 97 31 128/40 98 Mechanical Ventilator 70 12/12/19 06:00 97 31 124/41 98 Mechanical Ventilator 70 12/12/19 06:00 31 Mechanical Ventilator 70 12/12/19 06:00 31 124/41 Mechanical Ventilator 70 12/12/19 05:30 95 27 111/40 98 Mechanical Ventilator 70 12/12/19 05:08 99 22 70 12/12/19 05:00 26 Mechanical Ventilator 70 12/12/19 05:00 26 118/35 Mechanical Ventilator 70 12/12/19 05:00 93 26 118/35 93 Mechanical Ventilator 70 12/12/19 04:56 36 145/57 70 12/12/19 04:30 96 28 118/51 96 Mechanical Ventilator 70 12/12/19 04:15 98 30 129/45 95 Mechanical Ventilator 70 12/12/19 04:00 100 12/12/19 04:00 Endotracheal Tube 12/12/19 04:00 96.4 100 27 132/53 96 Mechanical Ventilator 70 12/12/19 04:00 27 Mechanical Ventilator 70 12/12/19 04:00 27 132/53 Mechanical Ventilator 70 12/12/19 04:00 70 12/12/19 03:30 103 30 99 Mechanical Ventilator 70 12/12/19 03:04 105 24 70 12/12/19 03:00 107 29 157/53 98 Mechanical Ventilator 70 12/12/19 03:00 29 Mechanical Ventilator 70 12/12/19 03:00 29 157/53 Mechanical Ventilator 70 12/12/19 02:30 91 18 100 Mechanical Ventilator 70 12/12/19 02:15 91 19 117/51 100 Mechanical Ventilator 70 12/12/19 02:00 97 20 133/53 100 Mechanical Ventilator 70 12/12/19 02:00 20 Mechanical Ventilator 70 12/12/19 02:00 20 133/53 Mechanical Ventilator 70 12/12/19 01:45 96 24 100 Mechanical Ventilator 50 12/12/19 01:30 99 21 103/42 100 Mechanical Ventilator 50 12/12/19 01:30 42 Mechanical Ventilator 70 12/12/19 01:15 36 Mechanical Ventilator 70 12/12/19 01:15 101 25 123/57 100 Mechanical Ventilator 50 12/12/19 01:00 27 Mechanical Ventilator 12/12/19 01:00 27 124/68 Mechanical Ventilator 12/12/19 01:00 106 22 95/42 100 Mechanical Ventilator 50 12/12/19 00:55 122 30 70 12/12/19 00:45 111 24 103/38 100 Mechanical Ventilator 50 12/12/19 00:30 113 24 113/43 100 Mechanical Ventilator 50 12/12/19 00:15 119 27 102/38 100 Mechanical Ventilator 50 12/12/19 00:10 98.9 12/12/19 00:00 Endotracheal Tube 12/12/19 00:00 28 Mechanical Ventilator 12/12/19 00:00 28 134/64 Mechanical Ventilator 12/12/19 00:00 126 28 124/47 99 Mechanical Ventilator 50 12/12/19 00:00 70 12/11/19 23:45 143 35 148/56 98 Mechanical Ventilator 50 12/11/19 23:37 148 12/11/19 23:30 153 37 135/47 97 Mechanical Ventilator 50 12/11/19 23:17 161 37 189/71 100 Mechanical Ventilator 50 12/11/19 23:15 162 37 100 Mechanical Ventilator 50 12/11/19 23:05 36 Mechanical Ventilator 70 12/11/19 23:03 36 180/121 Mechanical Ventilator 12/11/19 23:00 39 Mechanical Ventilator 70 12/11/19 23:00 39 185/99 Mechanical Ventilator 70 12/11/19 23:00 157 39 185/99 100 Mechanical Ventilator 50 12/11/19 22:45 135 28 195/66 99 Mechanical Ventilator 50 12/11/19 22:35 133 35 50 12/11/19 22:30 120 32 163/60 100 Mechanical Ventilator 50 12/11/19 22:15 113 28 156/65 100 Mechanical Ventilator 50 12/11/19 22:00 110 28 159/65 100 Mechanical Ventilator 50 12/11/19 22:00 28 Mechanical Ventilator 70 12/11/19 22:00 28 159/65 Mechanical Ventilator 70 12/11/19 21:45 112 28 121/57 100 Mechanical Ventilator 50 12/11/19 21:30 114 28 129/54 100 Mechanical Ventilator 50 12/11/19 21:15 116 28 135/50 100 Mechanical Ventilator 50 12/11/19 21:00 70 12/11/19 21:00 28 Mechanical Ventilator 70 12/11/19 21:00 28 142/61 Mechanical Ventilator 70 12/11/19 21:00 117 28 142/61 100 Mechanical Ventilator 50 12/11/19 20:45 120 29 145/65 100 Mechanical Ventilator 50 Intake and Output 12/11/19 12/12/19 19:00 07:00 Intake Total 1430.8529 ml 1649.776 ml Output Total 790 ml 860 ml Balance 640.8529 ml 789.776 ml IV Total 1330.8529 ml 1589.776 ml Other 100 ml 60 ml Output Urine Total 790 ml 860 ml Laboratory Tests 12/12/19 03:47: White Blood Count 6.5, Red Blood Count 2.55L, Hemoglobin 8.2L, Hematocrit 22.5L , Mean Corpuscular Volume 88, Mean Corpuscular Hemoglobin 32.2H, Mean Corpuscular Hemoglobin Concent 36.5H, Red Cell Distribution Width 14.5, Platelet Count 8*L, Mean Platelet Volume 15.4H, Neutrophils (%) (Auto) , Lymphocytes (%) (Auto) , Monocytes (%) (Auto) , Eosinophils (%) (Auto) , Basophils (%) (Auto) , Differential Total Cells Counted 100, Neutrophils % ( Manual) 23L, Lymphocytes % (Manual) 35, Monocytes % (Manual) 17H, Eosinophils % (Manual) 0, Basophils % (Manual) 0, Blast Cells % 25*H, Band Neutrophils 0, Nucleated Red Blood Cells 4, Platelet Estimate DecreasedL, Platelet Morphology Normal, Hypochromasia 2+, Anisocytosis 1+, Macrocytosis , Sodium Level 146#H, Potassium Level 4.4, Chloride Level 115H, Carbon Dioxide Level 22, Anion Gap 9, Blood Urea Nitrogen 39H, Creatinine 1.1, Estimat Glomerular Filtration Rate > 60 , Glucose Level 317#H, Uric Acid 2.4L, Calcium Level 8.0L, Phosphorus Level 3.0 , Magnesium Level 2.8H, Total Bilirubin 1.7H, Direct Bilirubin 1.5H, Aspartate Amino Transf (AST/SGOT) 46H, Alanine Aminotransferase (ALT/SGPT) 30, Alkaline Phosphatase 72, Total Protein 5.9L, Albumin 1.8L, Triglycerides Level 432H, HIV (1&2) Antibody Rapid Negative 12/12/19 08:35: White Blood Count 5.7, Red Blood Count 2.41L, Hemoglobin 7.7L, Hematocrit 20.9L , Mean Corpuscular Volume 87, Mean Corpuscular Hemoglobin 31.8H, Mean Corpuscular Hemoglobin Concent 36.6H, Red Cell Distribution Width 13.8, Platelet Count 22#L, Mean Platelet Volume 5.4L, Neutrophils (%) (Auto) , Lymphocytes (%) (Auto) , Monocytes (%) (Auto) , Eosinophils (%) (Auto) , Basophils (%) (Auto) , Differential Total Cells Counted 100, Neutrophils % ( Manual) 27L, Lymphocytes % (Manual) 33, Monocytes % (Manual) 18H, Eosinophils % (Manual) 0, Basophils % (Manual) 0, Blast Cells % 22*H, Band Neutrophils 0, Platelet Estimate DecreasedL, Platelet Morphology Normal, Hypochromasia 3+, Anisocytosis 1+, Spherocytes 2+ 12/12/19 09:30: Arterial Blood pH 7.420, Arterial Blood Partial Pressure CO2 33.0L, Arterial Blood Partial Pressure O2 72.0L, Arterial Blood HCO3 21.0L, Arterial Blood Oxygen Saturation 92.5L, Arterial Blood Base Excess -3.1L, Guzman Test Positive 12/12/19 09:35: Fibrinogen 406H Height (Feet): 5 Height (Inches): 8.00 Weight (Pounds): 178 Marc Hawkins MD Dec 12, 2019 20:38
[2019-12-12] MEDS ORDERED: Vancomycin 1750mg/D5W 550ml IVPB ONE ×2 (22:00)
--- NOTE | 2019-12-12 22:00 | NUR ---
NURSE NOTES: patient sedated withdraws to pain. Temp 101.9F axillary on cooling blanket. BP 109/46 HR 111 with patient running versed 8mg/hr, fentanyl 100mcg/hr, 1/2NS @100ml/hr through PIV clean and asymptomatic. jarquin catheter draining dark ronda urine. patient repositioned and oral care provided. will continue to monitor.
[2019-12-13] VITALS (52 sets, daily range): BP systolic 82–143; BP diastolic 34–57
--- NOTE | 2019-12-13 | NUR ---
NURSE NOTES: patient sedated withdraws to pain. BP 134/49 HR 123 RR 19 oxygen saturation 97% Temp 101F axillary. patient on cooling blanket. patient running Versed 10mcg/hr, fentanyl 400mcg/hr through left AC PIV patent and asymptomatic. bilateral upper extremity edema noted with rash from bilateral lower extremity up to abdomen. jarquin catheter draining ronda urine. will continue to monitor.
--- NOTE | 2019-12-13 02:00 | NUR ---
NURSE NOTES: patient sedated withdraws to pain. BP 134/49 HR 126 oxygen saturation 100%. patient given prn tylenol, and continues on cooling blanket. patient running versed 10mcg/hr, fentanyl 400mcg/hr. jarquin catheter draining ronda urine. patient repositioned, bathed, and oral care provided. red tinged oral secretions noted. will continue to monitor.
[2019-12-13] MEDS: fentaNYL Citrate 2500mcg in NS 250ml IV SCH ×2 (02:28→08:45)
[2019-12-13] MEDS: NovoLOG Insulin Flexpen SUBQ SCH ×12 (02:32→22:02)
--- NOTE | 2019-12-13 04:00 | NUR ---
NURSE NOTES: Patient sedated, withdraws to pain. BP 113/46 HR 116 Temp 98.9F Axillary. patient tolerating ventilator with FiO2 100% RR 16. patient running versed 10mg/hr and Fentanyl 400mcg/hr through left AC PIV clean and asymptomatic. jarquin catheter draining ronda urine. skin warm with bilateral upper extremity edema noted. patient repositioned and oral care provided. will continue to monitor.
[2019-12-13 04:55] LABS: HEMATOCRIT 22.8 % (42.0-52.0); MEAN CORPUSCULAR VOLUME 89 FL (80-99); PLATELET COUNT 22 K/UL (150-450); RED BLOOD COUNT 2.55 M/UL (4.70-6.10); RED CELL DISTRIBUTION WIDTH 14.4 % (11.6-14.8)
[2019-12-13] MEDS: Versed 50mg/D5W 100ml 100 ML IV SCH (05:23)
[2019-12-13 05:30] LABS: ALANINE AMINOTRANSFERASE 25 U/L (12-78); ALBUMIN 1.7 G/DL (3.4-5.0); ALBUMIN/GLOBULIN RATIO 0.4 (1.0-2.7); ALKALINE PHOSPHATASE 78 U/L (46-116); ANION GAP 9 mmol/L (5-15); ASPARTATE AMINO TRANSFERASE 57 U/L (15-37); BILIRUBIN,TOTAL 1.7 MG/DL (0.2-1.0); BLOOD UREA NITROGEN 36 mg/dL (7-18); CARBON DIOXIDE 23 MMOL/L (21-32); CHLORIDE 112 MMOL/L (98-107); CREATININE 1.2 MG/DL (0.55-1.30); LACTATE DEHYDROGENASE 868 U/L (81-234); PHOSPHORUS 5.1 MG/DL (2.5-4.9); POTASSIUM 4.9 MMOL/L (3.5-5.1); SODIUM 144 MMOL/L (136-145)
[2019-12-13 05:34] LABS: BILIRUBIN,DIRECT 1.6 MG/DL (0.0-0.3)
--- NOTE | 2019-12-13 06:00 | NUR ---
NURSE NOTES: patient sedated withdraws to pain. 7.5 ETT at 26cm on ventilator AC 16 TV 600 FiO2 70% and PEEP 10 with red tinged oral secretions noted. patient running versed 10mg/hr and fentanyl 400mcg/hr through PIV clean and asymptomatic. left Nare NGT running Glucerna 1.5 @ 15m/hr. jarquin catheter draining dark ronda urine. bilateral upper extremity edema noted and rash from bilateral lower extremity up to abdomen. will continue to monitor.
--- NOTE | 2019-12-13 06:40 | NUR ---
NURSE NOTES: Paged Dr. Fragoso to inform of abnormal lab results, elevated WBC and spike in temperature overnight. message left. will endorse.
--- NOTE | 2019-12-13 07:12 | NUR ---
HAND-OFF: Report given to NEGRITO Miller. Endorsed POC.
--- NOTE | 2019-12-13 07:30 | NUR ---
RESPIRATORY NOTE: Received pt intubated with ETT 7.5 and on AC [id number]%FiO3- peep of 10, secured by anchor fast. Pt is sedated. Pt hads low saturation. RN Angela and aware. No SOB or resp distress noted. Alarms are set and audible, vent is plugged into the red outlet, ambu bag is at bedside. Will continue to monitor.
--- NOTE | 2019-12-13 08:21 | NUR ---
CASE MANAGEMENT: REVIEW 12/13/2019 SI:COVID R/O PNA T 98.6 HR 110 RR 15 B/P 109/41 SATS 62% ON MECH VENT FIO2 100 LABS: WBC 16 PLT 22 CL 112 BUN 36 GLU 213 CA 8 PHOS 5.1 MG 2.7 TBILI 1.7 DBILI 1.6 AST 57 L.DEHYDROGENASE 868 CRP 133 BNP 743 IS:NA @ 100 ML/HR PLAQUENIL PO BID LEVEMIR SUBQ BID PROPOFOL IV Q24H CEFTRIAXONE IV Q24H FENTANYL IV PER PARAMETERS MIDAZOLAM IV PER PARAMETERS INSULIN ASPART SUBQ Q4H ATRA PO BID ICU DCP: TO BE DETERMINED PLAN OF CARE: STARTED ON CHEMO
--- NOTE | 2019-12-13 08:40 | Nephrology Progress Note ---
Assessment/Plan Problem List: (1) MERRITT (acute kidney injury) (2) Hyperglycemia (3) Anemia (4) Acute respiratory failure (5) COVID-19 virus infection (6) Severe thrombocytopenia (7) Acute myeloid leukemia Assessment Acute renal failure mainly dehydration due to osmotic diuresis Acute respiratory failure, intubated on mechanical ventilation Acute hyperglycemia, Acute metabolic and toxic encephalopathy Hyponatremia due to hyperglycemia Anemia, and severe thrombocytopenia Hypoalbuminemia, proteinuria High bilirubin on admission Plan First COVID-19 test positive ACUTE MYELOID LEUKEMIA Stable from renal standpoint of view Ventilation and pulmonary support Continue per hematology advice, in view of severe thrombocytopenia the risks and benefits of treatment with Plaquenil should be assessed Hydration, half-normal saline 100 cc an hour IV Protonix NG tube insertion Blood sugar and blood pressure check- Monitor renal parameters Per pulmonary and ID Anemia work-up Per orders Subjective ROS Limited/Unobtainable: Yes Objective Objective Last 24 Hour Vital Signs Date Time Temp Pulse Resp B/P (MAP) Pulse Ox O2 Delivery O2 Flow Rate FiO2 12/13/19 07:30 102 17 100 12/13/19 07:00 16 Mechanical Ventilator 100 12/13/19 07:00 16 Mechanical Ventilator 100 12/13/19 06:36 103 17 12/13/19 06:30 103 17 101/48 71 Mechanical Ventilator 12/13/19 06:00 106 16 107/50 78 Mechanical Ventilator 12/13/19 06:00 17 Mechanical Ventilator 100 12/13/19 06:00 17 Mechanical Ventilator 100 12/13/19 05:30 111 17 119/50 82 Mechanical Ventilator 12/13/19 05:23 17 Mechanical Ventilator 100 12/13/19 05:23 16 Mechanical Ventilator 100 12/13/19 05:00 113 16 109/49 82 Mechanical Ventilator 12/13/19 05:00 18 Mechanical Ventilator 100 12/13/19 05:00 18 Mechanical Ventilator 100 12/13/19 04:30 116 17 120/46 81 Mechanical Ventilator 12/13/19 04:00 110 12/13/19 04:00 100 12/13/19 04:00 Mechanical Ventilator 12/13/19 04:00 16 Mechanical Ventilator 100 12/13/19 04:00 16 Mechanical Ventilator 100 12/13/19 04:00 98.6 115 16 109/41 62 Mechanical Ventilator 12/13/19 03:30 99 14 101/43 36 Mechanical Ventilator 12/13/19 03:00 115 19 113/42 47 Mechanical Ventilator 12/13/19 03:00 17 Mechanical Ventilator 100 12/13/19 03:00 17 Mechanical Ventilator 100 12/13/19 02:58 114 29 100 12/13/19 02:30 123 19 131/44 Mechanical Ventilator 12/13/19 02:28 17 Mechanical Ventilator 100 12/13/19 02:00 126 19 132/48 Mechanical Ventilator 12/13/19 01:30 128 21 129/48 Mechanical Ventilator 12/13/19 01:15 128 21 122/50 Mechanical Ventilator 12/13/19 01:00 129 19 128/46 100 Mechanical Ventilator 12/13/19 01:00 20 Mechanical Ventilator 100 12/13/19 00:30 127 17 137/57 100 Mechanical Ventilator 12/13/19 00:00 120 12/13/19 00:00 101.0 120 19 126/53 97 Mechanical Ventilator 12/13/19 00:00 19 Mechanical Ventilator 100 12/13/19 00:00 19 Mechanical Ventilator 100 12/13/19 00:00 Mechanical Ventilator 12/13/19 00:00 100 12/12/19 23:45 124 25 143/44 53 Mechanical Ventilator 12/12/19 23:30 126 31 158/56 100 Mechanical Ventilator 12/12/19 23:19 28 Mechanical Ventilator 70 12/12/19 23:19 124 27 100 12/12/19 23:18 28 Mechanical Ventilator 70 12/12/19 23:15 126 28 164/58 74 Mechanical Ventilator 12/12/19 23:00 121 29 164/59 87 Mechanical Ventilator 12/12/19 22:30 110 25 128/59 99 Mechanical Ventilator 12/12/19 22:00 26 Mechanical Ventilator 70 12/12/19 22:00 26 Mechanical Ventilator 70 12/12/19 22:00 112 26 109/46 100 Mechanical Ventilator 12/12/19 21:30 118 28 106/53 99 Mechanical Ventilator 12/12/19 21:00 28 Mechanical Ventilator 70 12/12/19 21:00 28 Mechanical Ventilator 70 12/12/19 21:00 121 28 99/57 99 Mechanical Ventilator 12/12/19 20:30 121 27 111/60 99 Mechanical Ventilator 12/12/19 20:00 70 12/12/19 20:00 27 Mechanical Ventilator 70 12/12/19 20:00 27 Mechanical Ventilator 70 12/12/19 20:00 102.7 121 28 105/51 99 Mechanical Ventilator 12/12/19 20:00 Mechanical Ventilator 12/12/19 20:00 121 12/12/19 19:45 28 Mechanical Ventilator 70 12/12/19 19:45 28 Mechanical Ventilator 70 12/12/19 19:41 123 29 100 12/12/19 19:30 120 30 110/56 99 Mechanical Ventilator 12/12/19 19:30 29 Mechanical Ventilator 70 12/12/19 19:30 29 Mechanical Ventilator 70 12/12/19 19:15 29 Mechanical Ventilator 70 12/12/19 19:15 29 Mechanical Ventilator 70 12/12/19 19:00 125 30 111/56 99 Mechanical Ventilator 12/12/19 19:00 20 Mechanical Ventilator 12/12/19 19:00 26 Mechanical Ventilator 12/12/19 18:52 103.0 12/12/19 18:30 128 29 116/61 99 Mechanical Ventilator 12/12/19 18:00 129 28 117/49 100 Mechanical Ventilator 12/12/19 18:00 19 Mechanical Ventilator 12/12/19 18:00 18 Mechanical Ventilator 12/12/19 17:30 129 28 122/53 98 Mechanical Ventilator 12/12/19 17:28 126 28 70 12/12/19 17:00 18 12/12/19 17:00 18 Mechanical Ventilator 12/12/19 17:00 103.0 127 29 120/56 97 Mechanical Ventilator 12/12/19 16:30 127 29 118/56 96 Mechanical Ventilator 12/12/19 16:00 70 12/12/19 16:00 128 12/12/19 16:00 18 Mechanical Ventilator 12/12/19 16:00 19 Mechanical Ventilator 12/12/19 16:00 Mechanical Ventilator 12/12/19 16:00 126 31 100/63 95 Mechanical Ventilator 12/12/19 15:30 127 29 110/56 96 Mechanical Ventilator 12/12/19 15:01 100.3 12/12/19 15:00 127 30 70 12/12/19 15:00 18 Mechanical Ventilator 12/12/19 15:00 127 30 123/47 96 Mechanical Ventilator 12/12/19 14:31 29 Mechanical Ventilator 50.0 70 12/12/19 14:30 124 27 115/52 98 Mechanical Ventilator 12/12/19 14:00 120 28 115/52 97 Mechanical Ventilator 12/12/19 13:30 120 29 110/46 97 Mechanical Ventilator 12/12/19 13:01 117 29 70 12/12/19 13:00 118 29 105/44 96 Mechanical Ventilator 12/12/19 12:30 117 31 92/42 97 Mechanical Ventilator 12/12/19 12:00 70 12/12/19 12:00 108 12/12/19 12:00 100.3 112 31 101/46 97 Mechanical Ventilator 12/12/19 12:00 Endotracheal Tube 12/12/19 11:54 100.3 12/12/19 11:30 106 27 99/50 100 Mechanical Ventilator 12/12/19 11:24 27 Mechanical Ventilator 50.0 70 12/12/19 11:24 26 149/79 Mechanical Ventilator 12/12/19 11:05 105 25 70 12/12/19 11:00 107 28 80/28 97 Mechanical Ventilator 12/12/19 11:00 26 162/74 Mechanical Ventilator 12/12/19 10:44 27 Mechanical Ventilator 50.0 70 12/12/19 10:30 110 27 82/31 96 Mechanical Ventilator 12/12/19 10:00 108 27 97/35 98 Mechanical Ventilator 12/12/19 09:51 27 124/41 Mechanical Ventilator 50.0 70 12/12/19 09:35 96.4 12/12/19 09:30 115 30 125/34 96 Mechanical Ventilator 12/12/19 09:05 27 Mechanical Ventilator 50.0 70 12/12/19 09:00 119 34 70 12/12/19 09:00 115 32 163/46 98 Mechanical Ventilator Intake and Output 12/12/19 12/13/19 19:00 07:00 Intake Total 1744.699 ml 476.83792 ml Output Total 395 ml 370 ml Balance 1349.699 ml 106.18917 ml Free Water 180 ml IV Total 1459.699 ml 371.39839 ml Tube Feeding 105 ml 105 ml Output Urine Total 395 ml 370 ml Current Medications Medications (Trade) Dose Ordered Sig/Dariana Route PRN Reason Start Time Stop Time Status Last Admin Dose Admin Acetaminophen (Tylenol) 650 mg Q6H PRN ORAL Temp >100.5 12/11/19 13:00 01/10/20 12:59 12/12/19 18:22 Ceftriaxone Sodium 2 gm/ Sodium Chloride 55 ml @ 110 mls/hr Q24H IVPB 12/11/19 10:00 12/18/19 09:59 12/12/19 09:06 Dextrose (Dextrose 50%) 25 ml Q30M PRN IV Hypoglycemia 12/12/19 15:15 03/11/20 15:14 Dextrose (Dextrose 50%) 50 ml Q30M PRN IV Hypoglycemia 12/12/19 15:15 03/11/20 15:14 Fentanyl Citrate 2500 mcg/Sodium Chloride 250 ml @ 0 mls/hr Q24H IV 12/13/19 00:30 12/20/19 00:29 12/13/19 02:28 Folic Acid (Folate) 2 mg DAILY NG 12/12/19 09:00 01/11/20 08:59 12/12/19 09:05 Hydroxychloroquine Sulfate (Plaquenil) 200 mg BID ORAL 12/12/19 09:00 12/15/19 18:01 12/12/19 18:22 Insulin Aspart (NovoLOG) Q4H SUBQ 12/11/19 18:00 03/10/20 17:59 12/13/19 05:26 Insulin Aspart (NovoLOG) 5 units Q4H SUBQ 12/12/19 15:15 03/11/20 15:14 12/13/19 04:03 Insulin Detemir (Levemir) 10 units BID SUBQ 12/11/19 18:00 03/10/20 17:59 12/12/19 18:16 Midazolam HCl 100 ml @ 0 mls/hr Q24H IV 12/12/19 10:44 12/13/19 12:59 12/13/19 05:23 Pantoprazole (Protonix) 40 mg EVERY 12 HOURS IVP 12/11/19 10:00 01/10/20 09:59 12/12/19 21:04 Sodium Chloride 1,000 ml @ 100 mls/hr Q10H IV 12/11/19 10:00 01/10/20 09:59 12/13/19 02:28 Vancomycin HCl (Vanco rx to dose) 1 ea DAILY PRN MISC Per rx protocol 12/12/19 20:15 01/11/20 20:14 Vancomycin/Sodium Chloride 275 ml @ 183.333 mls/hr Q12H IVPB 12/13/19 10:00 12/18/19 09:59 Laboratory Tests 12/12/19 09:30: Arterial Blood pH 7.420, Arterial Blood Partial Pressure CO2 33.0L, Arterial Blood Partial Pressure O2 72.0L, Arterial Blood HCO3 21.0L, Arterial Blood Oxygen Saturation 92.5L, Arterial Blood Base Excess -3.1L, Guzman Test Positive 12/12/19 09:35: Fibrinogen 406H 12/13/19 04:00: White Blood Count 16.0#H, Red Blood Count 2.55L, Hemoglobin 8.0L, Hematocrit 22.8L, Mean Corpuscular Volume 89, Mean Corpuscular Hemoglobin 31.5H, Mean Corpuscular Hemoglobin Concent 35.2, Red Cell Distribution Width 14.4, Platelet Count 22L, Mean Platelet Volume 8.2, Neutrophils (%) (Auto) , Lymphocytes (%) ( Auto) , Monocytes (%) (Auto) , Eosinophils (%) (Auto) , Basophils (%) (Auto) , Neutrophils % (Manual) [Pending], Lymphocytes % (Manual) [Pending], Platelet Estimate [Pending], Platelet Morphology [Pending], Sodium Level 144, Potassium Level 4.9, Chloride Level 112H, Carbon Dioxide Level 23, Anion Gap 9, Blood Urea Nitrogen 36H, Creatinine 1.2, Estimat Glomerular Filtration Rate > 60, Glucose Level 213#H, Calcium Level 8.0L, Phosphorus Level 5.1H, Magnesium Level 2.7H, Total Bilirubin 1.7H, Direct Bilirubin 1.6H, Aspartate Amino Transf (AST/ SGOT) 57H, Alanine Aminotransferase (ALT/SGPT) 25, Alkaline Phosphatase 78, Lactate Dehydrogenase 868H, C-Reactive Protein, Quantitative 133.0H, Pro-B-Type Natriuretic Peptide 743H, Total Protein 6.4, Albumin 1.7L, Globulin 4.7, Albumin /Globulin Ratio 0.4L Height (Feet): 5 Height (Inches): 8.00 Weight (Pounds): 183 General Appearance: no apparent distress EENT: other - Intubated on vent Cardiovascular: tachycardia Respiratory/Chest: decreased breath sounds Abdomen: distended Delvin Miller MD Dec 13, 2019 08:40
[2019-12-13] MEDS: Vancomycin 1.25gm/NS Premix IVPB SCH ×2 (08:45→21:58)
[2019-12-13] MEDS: Pantoprazole Inj IVP SCH ×2 (08:46→21:58)
[2019-12-13] MEDS: cefTRIAXone 2 GM in NS 55 ML IVPB SCH (08:46)
[2019-12-13] MEDS: Levemir Flexpen SUBQ SCH ×2 (09:01→17:15)
--- NOTE | 2019-12-13 10:00 | NUR ---
NURSE NOTES: Pt was seen by Dr Guerrero. aware of lab results. No new orders were received. AM meds were administered. Oral care was done. Pt was suctioned. Fentanyl drip was titrated down to 200mcg/hr, and Versed maintained to -2 light sedation on RASS score. Cooling blanket remains on pt to maintain temp below 100.5. Pt was repositioned.
--- NOTE | 2019-12-13 10:14 | Pulmonology Progress Note ---
Assessment/Plan Assessment/Plan IMPRESSION: 1. Respiratory failure. 2. Severe hypoxemia. 3. Pneumonia. 4. Diabetes mellitus. 5. Thrombocytopenia. 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 DISCUSSION: Admitted to the hospital. I will transfuse platelets. I will continue Plaquenil. Keep on respirator, adjust to keep comfortable on oxygenation. DVT prophylaxis, SCDs. Protonix IV. Grave prognosis. I will follow carefully. Discussed with Veronica, cousin Advised of AML, DM and COVID-19 Advocated DNR Family will get back to me Michele Ly M.D. Subjective Interval Events: None new; remains on vent Constitutional: Reports: no symptoms HEENT: Repors: no symptoms Respiratory: Reports: no symptoms Cardiovascular: Reports: no symptoms Allergies: Coded Allergies: UNABLE TO ASSESS (Unverified , 12/10/19) Objective Last 24 Hour Vital Signs Date Time Temp Pulse Resp B/P (MAP) Pulse Ox O2 Delivery O2 Flow Rate FiO2 12/13/19 09:04 17 Mechanical Ventilator 50.0 100 12/13/19 08:45 17 Mechanical Ventilator 50.0 100 12/13/19 07:30 102 17 100 12/13/19 07:00 16 Mechanical Ventilator 100 12/13/19 07:00 16 Mechanical Ventilator 100 12/13/19 06:36 103 17 12/13/19 06:30 103 17 101/48 71 Mechanical Ventilator 12/13/19 06:00 106 16 107/50 78 Mechanical Ventilator 12/13/19 06:00 17 Mechanical Ventilator 100 12/13/19 06:00 17 Mechanical Ventilator 100 12/13/19 05:30 111 17 119/50 82 Mechanical Ventilator 12/13/19 05:23 17 Mechanical Ventilator 100 12/13/19 05:23 16 Mechanical Ventilator 100 12/13/19 05:00 113 16 109/49 82 Mechanical Ventilator 12/13/19 05:00 18 Mechanical Ventilator 100 12/13/19 05:00 18 Mechanical Ventilator 100 12/13/19 04:30 116 17 120/46 81 Mechanical Ventilator 12/13/19 04:00 110 12/13/19 04:00 100 12/13/19 04:00 Mechanical Ventilator 12/13/19 04:00 16 Mechanical Ventilator 100 12/13/19 04:00 16 Mechanical Ventilator 100 12/13/19 04:00 98.6 115 16 109/41 62 Mechanical Ventilator 12/13/19 03:30 99 14 101/43 36 Mechanical Ventilator 12/13/19 03:00 115 19 113/42 47 Mechanical Ventilator 12/13/19 03:00 17 Mechanical Ventilator 100 12/13/19 03:00 17 Mechanical Ventilator 100 12/13/19 02:58 114 29 100 12/13/19 02:30 123 19 131/44 Mechanical Ventilator 12/13/19 02:28 17 Mechanical Ventilator 100 12/13/19 02:00 126 19 132/48 Mechanical Ventilator 12/13/19 01:30 128 21 129/48 Mechanical Ventilator 12/13/19 01:15 128 21 122/50 Mechanical Ventilator 12/13/19 01:00 129 19 128/46 100 Mechanical Ventilator 12/13/19 01:00 20 Mechanical Ventilator 100 12/13/19 00:30 127 17 137/57 100 Mechanical Ventilator 12/13/19 00:00 120 12/13/19 00:00 101.0 120 19 126/53 97 Mechanical Ventilator 12/13/19 00:00 19 Mechanical Ventilator 100 12/13/19 00:00 19 Mechanical Ventilator 100 12/13/19 00:00 Mechanical Ventilator 12/13/19 00:00 100 12/12/19 23:45 124 25 143/44 53 Mechanical Ventilator 12/12/19 23:30 126 31 158/56 100 Mechanical Ventilator 12/12/19 23:19 28 Mechanical Ventilator 70 12/12/19 23:19 124 27 100 12/12/19 23:18 28 Mechanical Ventilator 70 12/12/19 23:15 126 28 164/58 74 Mechanical Ventilator 12/12/19 23:00 121 29 164/59 87 Mechanical Ventilator 12/12/19 22:30 110 25 128/59 99 Mechanical Ventilator 12/12/19 22:00 26 Mechanical Ventilator 70 12/12/19 22:00 26 Mechanical Ventilator 70 12/12/19 22:00 112 26 109/46 100 Mechanical Ventilator 12/12/19 21:30 118 28 106/53 99 Mechanical Ventilator 12/12/19 21:00 28 Mechanical Ventilator 70 12/12/19 21:00 28 Mechanical Ventilator 70 12/12/19 21:00 121 28 99/57 99 Mechanical Ventilator 12/12/19 20:30 121 27 111/60 99 Mechanical Ventilator 12/12/19 20:00 70 12/12/19 20:00 27 Mechanical Ventilator 70 12/12/19 20:00 27 Mechanical Ventilator 70 12/12/19 20:00 102.7 121 28 105/51 99 Mechanical Ventilator 12/12/19 20:00 Mechanical Ventilator 12/12/19 20:00 121 12/12/19 19:45 28 Mechanical Ventilator 70 12/12/19 19:45 28 Mechanical Ventilator 70 12/12/19 19:41 123 29 100 12/12/19 19:30 120 30 110/56 99 Mechanical Ventilator 12/12/19 19:30 29 Mechanical Ventilator 70 12/12/19 19:30 29 Mechanical Ventilator 70 12/12/19 19:15 29 Mechanical Ventilator 70 12/12/19 19:15 29 Mechanical Ventilator 70 12/12/19 19:00 125 30 111/56 99 Mechanical Ventilator 12/12/19 19:00 20 Mechanical Ventilator 12/12/19 19:00 26 Mechanical Ventilator 12/12/19 18:52 103.0 12/12/19 18:30 128 29 116/61 99 Mechanical Ventilator 12/12/19 18:00 129 28 117/49 100 Mechanical Ventilator 12/12/19 18:00 19 Mechanical Ventilator 12/12/19 18:00 18 Mechanical Ventilator 12/12/19 17:30 129 28 122/53 98 Mechanical Ventilator 12/12/19 17:28 126 28 70 12/12/19 17:00 18 12/12/19 17:00 18 Mechanical Ventilator 12/12/19 17:00 103.0 127 29 120/56 97 Mechanical Ventilator 12/12/19 16:30 127 29 118/56 96 Mechanical Ventilator 12/12/19 16:00 70 12/12/19 16:00 128 12/12/19 16:00 18 Mechanical Ventilator 12/12/19 16:00 19 Mechanical Ventilator 12/12/19 16:00 Mechanical Ventilator 12/12/19 16:00 126 31 100/63 95 Mechanical Ventilator 12/12/19 15:30 127 29 110/56 96 Mechanical Ventilator 12/12/19 15:01 100.3 12/12/19 15:00 127 30 70 12/12/19 15:00 18 Mechanical Ventilator 12/12/19 15:00 127 30 123/47 96 Mechanical Ventilator 12/12/19 14:31 29 Mechanical Ventilator 50.0 70 12/12/19 14:30 124 27 115/52 98 Mechanical Ventilator 12/12/19 14:00 120 28 115/52 97 Mechanical Ventilator 12/12/19 13:30 120 29 110/46 97 Mechanical Ventilator 12/12/19 13:01 117 29 70 12/12/19 13:00 118 29 105/44 96 Mechanical Ventilator 12/12/19 12:30 117 31 92/42 97 Mechanical Ventilator 12/12/19 12:00 70 12/12/19 12:00 108 12/12/19 12:00 100.3 112 31 101/46 97 Mechanical Ventilator 12/12/19 12:00 Endotracheal Tube 12/12/19 11:54 100.3 12/12/19 11:30 106 27 99/50 100 Mechanical Ventilator 12/12/19 11:24 27 Mechanical Ventilator 50.0 70 12/12/19 11:24 26 149/79 Mechanical Ventilator 12/12/19 11:05 105 25 70 12/12/19 11:00 107 28 80/28 97 Mechanical Ventilator 12/12/19 11:00 26 162/74 Mechanical Ventilator 12/12/19 10:44 27 Mechanical Ventilator 50.0 70 12/12/19 10:30 110 27 82/31 96 Mechanical Ventilator Intake and Output 12/12/19 12/13/19 19:00 07:00 Intake Total 1744.699 ml 476.23948 ml Output Total 395 ml 370 ml Balance 1349.699 ml 106.83592 ml Free Water 180 ml IV Total 1459.699 ml 371.91941 ml Tube Feeding 105 ml 105 ml Output Urine Total 395 ml 370 ml General Appearance: no acute distress HEENT: normocephalic Respiratory/Chest: chest wall non-tender Cardiovascular: normal peripheral pulses Abdomen: normal bowel sounds Microbiology Date/Time Source Procedure Growth Status 12/10/19 17:55 Blood Blood Culture - Preliminary NO GROWTH AFTER 24 HOURS Resulted 12/10/19 17:45 Blood Blood Culture - Preliminary Resulted 12/10/19 21:00 Nasal Nares MRSA Culture - Final NO METHICILLIN RESISTANT STAPH AUREUS... Complete 12/10/19 17:50 Nasal Nares - Final Complete 12/10/19 17:50 Nasal Nares - Final Complete 12/10/19 17:45 Nasopharynx Coronavirus COVID-19 PCR (GUILHERME) - Final Complete 12/10/19 21:00 Rectum VRE Culture - Final NO VANCOMYCIN RESISTANT ENTEROCOCCUS ... Complete 12/10/19 21:00 Rectum - Final NO CARBAPENEM-RESISTANT ENTEROBACTERI... Complete Laboratory Tests 12/13/19 04:00: White Blood Count 16.0#H, Red Blood Count 2.55L, Hemoglobin 8.0L, Hematocrit 22.8L, Mean Corpuscular Volume 89, Mean Corpuscular Hemoglobin 31.5H, Mean Corpuscular Hemoglobin Concent 35.2, Red Cell Distribution Width 14.4, Platelet Count 22L, Mean Platelet Volume 8.2, Neutrophils (%) (Auto) , Lymphocytes (%) ( Auto) , Monocytes (%) (Auto) , Eosinophils (%) (Auto) , Basophils (%) (Auto) , Neutrophils % (Manual) [Pending], Lymphocytes % (Manual) [Pending], Platelet Estimate [Pending], Platelet Morphology [Pending], Sodium Level 144, Potassium Level 4.9, Chloride Level 112H, Carbon Dioxide Level 23, Anion Gap 9, Blood Urea Nitrogen 36H, Creatinine 1.2, Estimat Glomerular Filtration Rate > 60, Glucose Level 213#H, Calcium Level 8.0L, Phosphorus Level 5.1H, Magnesium Level 2.7H, Total Bilirubin 1.7H, Direct Bilirubin 1.6H, Aspartate Amino Transf (AST/ SGOT) 57H, Alanine Aminotransferase (ALT/SGPT) 25, Alkaline Phosphatase 78, Lactate Dehydrogenase 868H, C-Reactive Protein, Quantitative 133.0H, Pro-B-Type Natriuretic Peptide 743H, Total Protein 6.4, Albumin 1.7L, Globulin 4.7, Albumin /Globulin Ratio 0.4L Current Medications Medications (Trade) Dose Ordered Sig/Dariana Route PRN Reason Start Time Stop Time Status Last Admin Dose Admin Acetaminophen (Tylenol) 650 mg Q6H PRN ORAL Temp >100.5 12/11/19 13:00 01/10/20 12:59 12/12/19 18:22 Ceftriaxone Sodium 2 gm/ Sodium Chloride 55 ml @ 110 mls/hr Q24H IVPB 12/11/19 10:00 12/18/19 09:59 12/13/19 08:46 Dextrose (Dextrose 50%) 25 ml Q30M PRN IV Hypoglycemia 12/12/19 15:15 03/11/20 15:14 Dextrose (Dextrose 50%) 50 ml Q30M PRN IV Hypoglycemia 12/12/19 15:15 03/11/20 15:14 Fentanyl Citrate 2500 mcg/Sodium Chloride 250 ml @ 0 mls/hr Q24H IV 12/13/19 00:30 12/20/19 00:29 12/13/19 08:45 Folic Acid (Folate) 2 mg DAILY NG 12/12/19 09:00 01/11/20 08:59 12/13/19 08:46 Hydroxychloroquine Sulfate (Plaquenil) 200 mg BID ORAL 12/12/19 09:00 12/15/19 18:01 12/13/19 08:46 Insulin Aspart (NovoLOG) Q4H SUBQ 12/11/19 18:00 03/10/20 17:59 12/13/19 09:03 Insulin Aspart (NovoLOG) 5 units Q4H SUBQ 12/12/19 15:15 03/11/20 15:14 12/13/19 07:15 Insulin Detemir (Levemir) 10 units BID SUBQ 12/11/19 18:00 03/10/20 17:59 12/13/19 09:01 Midazolam HCl 100 ml @ 0 mls/hr Q24H IV 12/13/19 08:45 12/20/19 08:44 12/13/19 09:04 Pantoprazole (Protonix) 40 mg EVERY 12 HOURS IVP 12/11/19 10:00 01/10/20 09:59 12/13/19 08:46 Sodium Chloride 1,000 ml @ 100 mls/hr Q10H IV 12/11/19 10:00 01/10/20 09:59 12/13/19 02:28 Vancomycin HCl (Vanco rx to dose) 1 ea DAILY PRN MISC Per rx protocol 12/12/19 20:15 01/11/20 20:14 Vancomycin/Sodium Chloride 275 ml @ 183.333 mls/hr Q12H IVPB 12/13/19 10:00 12/18/19 09:59 12/13/19 08:45 Michele Ly MD Dec 13, 2019 10:14
--- NOTE | 2019-12-13 10:26 | Infectious Diseases Prog Note ---
Assessment/Plan Assessment/Plan IMPRESSION: Sepsis with tachycardia, tachypnea & fever. Pneumonia with COVID-19. Bacteremia with gram positive cocci Hypoxemic respiratory failure, Diabetes mellitus with hyperglycemia, Blast in peripheral blood Thrombocytopenia, Lymphocytosis, Anemia, Acute renal failure, Elevated in bilirubin, Hyponatremia. RECOMMENDATION: We will Continue hydroxychloroquine &ceftriaxone. Started on IV Vancomycin We will follow up cultures & Flucytometry Subjective ROS Limited/Unobtainable: Yes Constitutional: Reports: fever, other - [id number] Allergies: Coded Allergies: UNABLE TO ASSESS (Unverified , 12/10/19) Objective Vital Signs Last 24 Hour Vital Signs Date Time Temp Pulse Resp B/P (MAP) Pulse Ox O2 Delivery O2 Flow Rate FiO2 12/13/19 09:15 98.6 12/13/19 09:15 98.6 12/13/19 09:04 17 Mechanical Ventilator 50.0 100 12/13/19 08:45 17 Mechanical Ventilator 50.0 100 12/13/19 07:30 102 17 100 12/13/19 07:00 16 Mechanical Ventilator 100 12/13/19 07:00 16 Mechanical Ventilator 100 12/13/19 06:36 103 17 12/13/19 06:30 103 17 101/48 71 Mechanical Ventilator 12/13/19 06:00 106 16 107/50 78 Mechanical Ventilator 12/13/19 06:00 17 Mechanical Ventilator 100 12/13/19 06:00 17 Mechanical Ventilator 100 12/13/19 05:30 111 17 119/50 82 Mechanical Ventilator 12/13/19 05:23 17 Mechanical Ventilator 100 12/13/19 05:23 16 Mechanical Ventilator 100 12/13/19 05:00 113 16 109/49 82 Mechanical Ventilator 12/13/19 05:00 18 Mechanical Ventilator 100 12/13/19 05:00 18 Mechanical Ventilator 100 12/13/19 04:30 116 17 120/46 81 Mechanical Ventilator 12/13/19 04:00 110 12/13/19 04:00 100 12/13/19 04:00 Mechanical Ventilator 12/13/19 04:00 16 Mechanical Ventilator 100 12/13/19 04:00 16 Mechanical Ventilator 100 12/13/19 04:00 98.6 115 16 109/41 62 Mechanical Ventilator 12/13/19 03:30 99 14 101/43 36 Mechanical Ventilator 12/13/19 03:00 115 19 113/42 47 Mechanical Ventilator 12/13/19 03:00 17 Mechanical Ventilator 100 12/13/19 03:00 17 Mechanical Ventilator 100 12/13/19 02:58 114 29 100 12/13/19 02:30 123 19 131/44 Mechanical Ventilator 12/13/19 02:28 17 Mechanical Ventilator 100 12/13/19 02:00 126 19 132/48 Mechanical Ventilator 12/13/19 01:30 128 21 129/48 Mechanical Ventilator 12/13/19 01:15 128 21 122/50 Mechanical Ventilator 12/13/19 01:00 129 19 128/46 100 Mechanical Ventilator 12/13/19 01:00 20 Mechanical Ventilator 100 12/13/19 00:30 127 17 137/57 100 Mechanical Ventilator 12/13/19 00:00 120 12/13/19 00:00 101.0 120 19 126/53 97 Mechanical Ventilator 12/13/19 00:00 19 Mechanical Ventilator 100 12/13/19 00:00 19 Mechanical Ventilator 100 12/13/19 00:00 Mechanical Ventilator 12/13/19 00:00 100 12/12/19 23:45 124 25 143/44 53 Mechanical Ventilator 12/12/19 23:30 126 31 158/56 100 Mechanical Ventilator 12/12/19 23:19 28 Mechanical Ventilator 70 12/12/19 23:19 124 27 100 12/12/19 23:18 28 Mechanical Ventilator 70 12/12/19 23:15 126 28 164/58 74 Mechanical Ventilator 12/12/19 23:00 121 29 164/59 87 Mechanical Ventilator 12/12/19 22:30 110 25 128/59 99 Mechanical Ventilator 12/12/19 22:00 26 Mechanical Ventilator 70 12/12/19 22:00 26 Mechanical Ventilator 70 12/12/19 22:00 112 26 109/46 100 Mechanical Ventilator 12/12/19 21:30 118 28 106/53 99 Mechanical Ventilator 12/12/19 21:00 28 Mechanical Ventilator 70 12/12/19 21:00 28 Mechanical Ventilator 70 12/12/19 21:00 121 28 99/57 99 Mechanical Ventilator 12/12/19 20:30 121 27 111/60 99 Mechanical Ventilator 12/12/19 20:00 70 12/12/19 20:00 27 Mechanical Ventilator 70 12/12/19 20:00 27 Mechanical Ventilator 70 12/12/19 20:00 102.7 121 28 105/51 99 Mechanical Ventilator 12/12/19 20:00 Mechanical Ventilator 12/12/19 20:00 121 12/12/19 19:45 28 Mechanical Ventilator 70 12/12/19 19:45 28 Mechanical Ventilator 70 12/12/19 19:41 123 29 100 12/12/19 19:30 120 30 110/56 99 Mechanical Ventilator 12/12/19 19:30 29 Mechanical Ventilator 70 12/12/19 19:30 29 Mechanical Ventilator 70 12/12/19 19:15 29 Mechanical Ventilator 70 12/12/19 19:15 29 Mechanical Ventilator 70 12/12/19 19:00 125 30 111/56 99 Mechanical Ventilator 12/12/19 19:00 20 Mechanical Ventilator 12/12/19 19:00 26 Mechanical Ventilator 12/12/19 18:52 103.0 12/12/19 18:30 128 29 116/61 99 Mechanical Ventilator 12/12/19 18:00 129 28 117/49 100 Mechanical Ventilator 12/12/19 18:00 19 Mechanical Ventilator 12/12/19 18:00 18 Mechanical Ventilator 12/12/19 17:30 129 28 122/53 98 Mechanical Ventilator 12/12/19 17:28 126 28 70 12/12/19 17:00 18 12/12/19 17:00 18 Mechanical Ventilator 12/12/19 17:00 103.0 127 29 120/56 97 Mechanical Ventilator 12/12/19 16:30 127 29 118/56 96 Mechanical Ventilator 12/12/19 16:00 70 12/12/19 16:00 128 12/12/19 16:00 18 Mechanical Ventilator 12/12/19 16:00 19 Mechanical Ventilator 12/12/19 16:00 Mechanical Ventilator 12/12/19 16:00 126 31 100/63 95 Mechanical Ventilator 12/12/19 15:30 127 29 110/56 96 Mechanical Ventilator 12/12/19 15:01 100.3 12/12/19 15:00 127 30 70 12/12/19 15:00 18 Mechanical Ventilator 12/12/19 15:00 127 30 123/47 96 Mechanical Ventilator 12/12/19 14:31 29 Mechanical Ventilator 50.0 70 12/12/19 14:30 124 27 115/52 98 Mechanical Ventilator 12/12/19 14:00 120 28 115/52 97 Mechanical Ventilator 12/12/19 13:30 120 29 110/46 97 Mechanical Ventilator 12/12/19 13:01 117 29 70 12/12/19 13:00 118 29 105/44 96 Mechanical Ventilator 12/12/19 12:30 117 31 92/42 97 Mechanical Ventilator 12/12/19 12:00 70 12/12/19 12:00 108 12/12/19 12:00 100.3 112 31 101/46 97 Mechanical Ventilator 12/12/19 12:00 Endotracheal Tube 12/12/19 11:54 100.3 12/12/19 11:30 106 27 99/50 100 Mechanical Ventilator 12/12/19 11:24 27 Mechanical Ventilator 50.0 70 12/12/19 11:24 26 149/79 Mechanical Ventilator 12/12/19 11:05 105 25 70 12/12/19 11:00 107 28 80/28 97 Mechanical Ventilator 12/12/19 11:00 26 162/74 Mechanical Ventilator 12/12/19 10:44 27 Mechanical Ventilator 50.0 70 12/12/19 10:30 110 27 82/31 96 Mechanical Ventilator Height (Feet): 5 Height (Inches): 8.00 Weight (Pounds): 183 HEENT: mucous membranes moist Respiratory/Chest: other - on ventilator Cardiovascular: tachycardia Abdomen: soft, non tender, other Extremities: no edema Neurologic/Psychiatric: other - sedated Microbiology Date/Time Source Procedure Growth Status 12/10/19 17:55 Blood Blood Culture - Preliminary NO GROWTH AFTER 24 HOURS Resulted 12/10/19 17:45 Blood Blood Culture - Preliminary Resulted 12/10/19 21:00 Nasal Nares MRSA Culture - Final NO METHICILLIN RESISTANT STAPH AUREUS... Complete 12/10/19 17:50 Nasal Nares - Final Complete 12/10/19 17:50 Nasal Nares - Final Complete 12/10/19 17:45 Nasopharynx Coronavirus COVID-19 PCR (GUILHERME) - Final Complete 12/10/19 21:00 Rectum VRE Culture - Final NO VANCOMYCIN RESISTANT ENTEROCOCCUS ... Complete 12/10/19 21:00 Rectum - Final NO CARBAPENEM-RESISTANT ENTEROBACTERI... Complete Laboratory Tests Test 12/13/19 04:00 White Blood Count 16.0 K/UL (4.8-10.8) #H Red Blood Count 2.55 M/UL (4.70-6.10) L Hemoglobin 8.0 G/DL (14.2-18.0) L Hematocrit 22.8 % (42.0-52.0) L Mean Corpuscular Volume 89 FL (80-99) Mean Corpuscular Hemoglobin 31.5 PG (27.0-31.0) H Mean Corpuscular Hemoglobin Concent 35.2 G/DL (32.0-36.0) Red Cell Distribution Width 14.4 % (11.6-14.8) Platelet Count 22 K/UL (150-450) L Mean Platelet Volume 8.2 FL (6.5-10.1) Neutrophils (%) (Auto) % (45.0-75.0) Lymphocytes (%) (Auto) % (20.0-45.0) Monocytes (%) (Auto) % (1.0-10.0) Eosinophils (%) (Auto) % (0.0-3.0) Basophils (%) (Auto) % (0.0-2.0) Neutrophils % (Manual) Pending Lymphocytes % (Manual) Pending Platelet Estimate Pending Platelet Morphology Pending Sodium Level 144 MMOL/L (136-145) Potassium Level 4.9 MMOL/L (3.5-5.1) Chloride Level 112 MMOL/L (98-107) H Carbon Dioxide Level 23 MMOL/L (21-32) Anion Gap 9 mmol/L (5-15) Blood Urea Nitrogen 36 mg/dL (7-18) H Creatinine 1.2 MG/DL (0.55-1.30) Estimat Glomerular Filtration Rate > 60 mL/min (>60) Glucose Level 213 MG/DL (74-106) #H Calcium Level 8.0 MG/DL (8.5-10.1) L Phosphorus Level 5.1 MG/DL (2.5-4.9) H Magnesium Level 2.7 MG/DL (1.8-2.4) H Total Bilirubin 1.7 MG/DL (0.2-1.0) H Direct Bilirubin 1.6 MG/DL (0.0-0.3) H Aspartate Amino Transf (AST/SGOT) 57 U/L (15-37) H Alanine Aminotransferase (ALT/SGPT) 25 U/L (12-78) Alkaline Phosphatase 78 U/L (46-116) Lactate Dehydrogenase 868 U/L (81-234) H C-Reactive Protein, Quantitative 133.0 mg/dL (0.00-0.90) H Pro-B-Type Natriuretic Peptide 743 pg/mL (0-125) H Total Protein 6.4 G/DL (6.4-8.2) Albumin 1.7 G/DL (3.4-5.0) L Globulin 4.7 g/dL Albumin/Globulin Ratio 0.4 (1.0-2.7) L Current Medications Medications (Trade) Dose Ordered Sig/Dariana Route PRN Reason Start Time Stop Time Status Last Admin Dose Admin Acetaminophen (Tylenol) 650 mg Q6H PRN ORAL Temp >100.5 12/11/19 13:00 01/10/20 12:59 12/12/19 18:22 Ceftriaxone Sodium 2 gm/ Sodium Chloride 55 ml @ 110 mls/hr Q24H IVPB 12/11/19 10:00 12/18/19 09:59 12/13/19 08:46 Dextrose (Dextrose 50%) 25 ml Q30M PRN IV Hypoglycemia 12/12/19 15:15 03/11/20 15:14 Dextrose (Dextrose 50%) 50 ml Q30M PRN IV Hypoglycemia 12/12/19 15:15 03/11/20 15:14 Fentanyl Citrate 2500 mcg/Sodium Chloride 250 ml @ 0 mls/hr Q24H IV 12/13/19 00:30 12/20/19 00:29 12/13/19 08:45 Folic Acid (Folate) 2 mg DAILY NG 12/12/19 09:00 01/11/20 08:59 12/13/19 08:46 Hydroxychloroquine Sulfate (Plaquenil) 200 mg BID ORAL 12/12/19 09:00 12/15/19 18:01 12/13/19 08:46 Insulin Aspart (NovoLOG) Q4H SUBQ 12/11/19 18:00 03/10/20 17:59 12/13/19 09:03 Insulin Aspart (NovoLOG) 5 units Q4H SUBQ 12/12/19 15:15 03/11/20 15:14 12/13/19 07:15 Insulin Detemir (Levemir) 10 units BID SUBQ 12/11/19 18:00 03/10/20 17:59 12/13/19 09:01 Midazolam HCl 100 ml @ 0 mls/hr Q24H IV 12/13/19 08:45 12/20/19 08:44 12/13/19 09:04 Pantoprazole (Protonix) 40 mg EVERY 12 HOURS IVP 12/11/19 10:00 01/10/20 09:59 12/13/19 08:46 Sodium Chloride 1,000 ml @ 100 mls/hr Q10H IV 12/11/19 10:00 01/10/20 09:59 12/13/19 02:28 Vancomycin HCl (Vanco rx to dose) 1 ea DAILY PRN MISC Per rx protocol 12/12/19 20:15 01/11/20 20:14 Vancomycin/Sodium Chloride 275 ml @ 183.333 mls/hr Q12H IVPB 12/13/19 10:00 12/18/19 09:59 12/13/19 08:45 Pietro Rodriguez MD Dec 13, 2019 10:26
--- NOTE | 2019-12-13 12:00 | NUR ---
NURSE NOTES: Pt was seen by Dr Ly. Order was received for Levophed drip to be infused via peripheral line while we wait to have PICC line placed. Order also received for PICC line placement. Pt's family was contacted and telephone consent was received for PICC placement.
[2019-12-13] MEDS ORDERED: Heparin1,000 units/500ml Premix(Conc:2 units/ml) IV PRN (13:00)
[2019-12-13] MEDS ORDERED: Lidocaine 1% Plain 30 ml INJ PRN (13:00)
--- NOTE | 2019-12-13 13:00 | NUR ---
NURSE NOTES: Dr Ly spoke with family (pt's cousin on listed as primary contact on facesheet) regarding pt's code status and updated family on pt's condition. Per pt's cousin, pt's father is the primary decision maker who is now "sick" and on his way to the ER. Pt's cousin stated that she will consult with pt's father and the rest of the family regarding pt's code status and contact the nurse's station.
--- NOTE | 2019-12-13 13:09 | Hematology/Onc Progress Note ---
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 Presented with Thrombocytopenia - potential causes multifactorial, evaluate liver and viral etiologies to begin, also could be related to underlying medications patient has received. 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 --> Hep panel and HIV ordered --> NEG --> US abd to evaluate for cirrhosis and hsm ordered --> Peripheral smear ordered to evaluate for blasts /schistocytes --> showed 25 % blasts --> abx and other meds have been reviewed --> ok for ppx if plt >50k w/ either heparin or lovenox --> Transfuse if Plt < 20k and fever, or if Plt < 10k without fever --> DDimer is high++ --> with blasts on peripheral smear, have dw pathology and pending a FLOW CYTOMETRY--> showed AML --> plt trend 8-->22-->22 --> Likely will need intensive high dose chemotherapy==> WILL NEED TRANSFER TO HIGHER LEVEL OF CARE TO [facility] --> attempted to call pharmacy for atra medication, however unavailable, dw pharmacist at length, unlikely to help given poor prognosis especially since desaturating, poorly tolerating vent --> VERY POOR PROGNOSIS GIVEN RESPIRATORY STATUS # Anemia of chronic disease due to underlying chronic medical issues, multifactorial v Gi bleed --> Anemia workup has been ordered, rule out gi bleed --> No evidence of hemolysis is noted, peripheral smear has been reviewed. --> Hgb goal >7. Transfuse prn. --> Epogen or iron at this time is not particularly indicated --> Medications have been reviewed --> hgb trend: 8 # Coagulopathy may be due to sepsis/dic --> monitor closely --> vit k and ffp as needed to correct # Respiratory failure --> s/p intubation # Pneumonia --> abx on bcoard --> r/o covid # Severe hypoxemia --> s/p intubation # Acute metabolic and toxic encephalopathy # Hyponatremia due to hyperglycemia # Transaminitis # Dvt ppx scds # Transfer to HIGHER LEVEL OF CARE when more stable The timing of this note does not necessarily reflect the time of the patient was seen. Greatly appreciate consultation. Subjective Allergies: Coded Allergies: UNABLE TO ASSESS (Unverified , 12/10/19) Subjective 12/11 flow came back + for AML, awaiting if has APL, will initiate transfer to higher level of care 12/12 icu, febrile overnight, no acute distress, on plaq/ceftrx/vanc Objective Objective Current Medications Medications (Trade) Dose Ordered Sig/Dariana Route PRN Reason Start Time Stop Time Status Last Admin Dose Admin Acetaminophen (Tylenol) 650 mg Q6H PRN ORAL Temp >100.5 12/11/19 13:00 01/10/20 12:59 12/12/19 18:22 Ceftriaxone Sodium 2 gm/ Sodium Chloride 55 ml @ 110 mls/hr Q24H IVPB 12/11/19 10:00 12/18/19 09:59 12/13/19 08:46 Chlorhexidine Gluconate (Ally-Hex 2%) 1 applic DAILY@2000 TOPIC 12/13/19 20:00 03/12/20 19:59 Dextrose (Dextrose 50%) 25 ml Q30M PRN IV Hypoglycemia 12/12/19 15:15 03/11/20 15:14 Dextrose (Dextrose 50%) 50 ml Q30M PRN IV Hypoglycemia 12/12/19 15:15 03/11/20 15:14 Fentanyl Citrate 2500 mcg/Sodium Chloride 250 ml @ 0 mls/hr Q24H IV 12/13/19 00:30 12/20/19 00:29 12/13/19 08:45 Folic Acid (Folate) 2 mg DAILY NG 12/12/19 09:00 01/11/20 08:59 12/13/19 08:46 Heparin Sodium/ Sodium Chloride (Heparin 1000 units/500ml Premix) 1,000 unit ONCE PRN IV PICC LINE PLACEMENT 12/13/19 13:00 12/15/19 12:59 Hydroxychloroquine Sulfate (Plaquenil) 200 mg BID ORAL 12/12/19 09:00 12/15/19 18:01 12/13/19 08:46 Insulin Aspart (NovoLOG) Q4H SUBQ 12/11/19 18:00 03/10/20 17:59 12/13/19 09:03 Insulin Aspart (NovoLOG) 5 units Q4H SUBQ 12/12/19 15:15 03/11/20 15:14 12/13/19 07:15 Insulin Detemir (Levemir) 10 units BID SUBQ 12/11/19 18:00 03/10/20 17:59 12/13/19 09:01 Lidocaine HCl (Xylocaine 1% 30ml) 30 ml ONCE PRN INJ PICC LINE PLACEMENT 12/13/19 13:00 12/15/19 12:59 Midazolam HCl 100 ml @ 0 mls/hr Q24H IV 12/13/19 08:45 12/20/19 08:44 12/13/19 09:04 Norepinephrine Bitartrate 8 mg/ Sodium Chloride 250 ml @ 0 mls/hr Q24H IV 12/13/19 11:15 01/12/20 11:14 12/13/19 11:43 Pantoprazole (Protonix) 40 mg EVERY 12 HOURS IVP 12/11/19 10:00 01/10/20 09:59 12/13/19 08:46 Sodium Chloride 1,000 ml @ 100 mls/hr Q10H IV 12/11/19 10:00 01/10/20 09:59 12/13/19 11:43 Vancomycin HCl (Vanco rx to dose) 1 ea DAILY PRN MISC Per rx protocol 12/12/19 20:15 01/11/20 20:14 Vancomycin/Sodium Chloride 275 ml @ 183.333 mls/hr Q12H IVPB 12/13/19 10:00 12/18/19 09:59 12/13/19 08:45 Last 24 Hour Vital Signs Date Time Temp Pulse Resp B/P (MAP) Pulse Ox O2 Delivery O2 Flow Rate FiO2 12/13/19 11:43 88/39 12/13/19 10:30 102 17 88/39 86 Mechanical Ventilator 12/13/19 10:30 100 16 100 12/13/19 10:00 101 16 88/41 85 Mechanical Ventilator 12/13/19 09:30 101 16 82/41 90 Mechanical Ventilator 12/13/19 09:20 99 16 100 12/13/19 09:15 98.6 12/13/19 09:15 98.6 12/13/19 09:04 17 Mechanical Ventilator 50.0 100 12/13/19 09:00 100 16 90/42 84 Mechanical Ventilator 12/13/19 08:45 17 Mechanical Ventilator 50.0 100 12/13/19 08:30 91 23 86/42 78 Mechanical Ventilator 12/13/19 08:00 99 12/13/19 08:00 Mechanical Ventilator 12/13/19 08:00 98.1 97 19 91/40 75 Mechanical Ventilator 12/13/19 08:00 100 12/13/19 07:30 100 17 99/40 70 Mechanical Ventilator 12/13/19 07:30 102 17 100 12/13/19 07:00 16 Mechanical Ventilator 100 12/13/19 07:00 16 Mechanical Ventilator 100 12/13/19 07:00 102 17 96/43 70 Mechanical Ventilator 12/13/19 06:36 103 17 12/13/19 06:30 103 17 101/48 71 Mechanical Ventilator 12/13/19 06:00 106 16 107/50 78 Mechanical Ventilator 12/13/19 06:00 17 Mechanical Ventilator 100 12/13/19 06:00 17 Mechanical Ventilator 100 12/13/19 05:30 111 17 119/50 82 Mechanical Ventilator 12/13/19 05:23 17 Mechanical Ventilator 100 12/13/19 05:23 16 Mechanical Ventilator 100 12/13/19 05:00 113 16 109/49 82 Mechanical Ventilator 12/13/19 05:00 18 Mechanical Ventilator 100 12/13/19 05:00 18 Mechanical Ventilator 100 12/13/19 04:30 116 17 120/46 81 Mechanical Ventilator 12/13/19 04:00 110 12/13/19 04:00 100 12/13/19 04:00 Mechanical Ventilator 12/13/19 04:00 16 Mechanical Ventilator 100 12/13/19 04:00 16 Mechanical Ventilator 100 12/13/19 04:00 98.6 115 16 109/41 62 Mechanical Ventilator 12/13/19 03:30 99 14 101/43 36 Mechanical Ventilator 12/13/19 03:00 115 19 113/42 47 Mechanical Ventilator 12/13/19 03:00 17 Mechanical Ventilator 100 12/13/19 03:00 17 Mechanical Ventilator 100 12/13/19 02:58 114 29 100 12/13/19 02:30 123 19 131/44 Mechanical Ventilator 12/13/19 02:28 17 Mechanical Ventilator 100 12/13/19 02:00 126 19 132/48 Mechanical Ventilator 12/13/19 01:30 128 21 129/48 Mechanical Ventilator 12/13/19 01:15 128 21 122/50 Mechanical Ventilator 12/13/19 01:00 129 19 128/46 100 Mechanical Ventilator 12/13/19 01:00 20 Mechanical Ventilator 100 12/13/19 00:30 127 17 137/57 100 Mechanical Ventilator 12/13/19 00:00 120 12/13/19 00:00 101.0 120 19 126/53 97 Mechanical Ventilator 12/13/19 00:00 19 Mechanical Ventilator 100 12/13/19 00:00 19 Mechanical Ventilator 100 12/13/19 00:00 Mechanical Ventilator 12/13/19 00:00 100 12/12/19 23:45 124 25 143/44 53 Mechanical Ventilator 12/12/19 23:30 126 31 158/56 100 Mechanical Ventilator 12/12/19 23:19 28 Mechanical Ventilator 70 12/12/19 23:19 124 27 100 12/12/19 23:18 28 Mechanical Ventilator 70 12/12/19 23:15 126 28 164/58 74 Mechanical Ventilator 12/12/19 23:00 121 29 164/59 87 Mechanical Ventilator 12/12/19 22:30 110 25 128/59 99 Mechanical Ventilator 12/12/19 22:00 26 Mechanical Ventilator 70 12/12/19 22:00 26 Mechanical Ventilator 70 12/12/19 22:00 112 26 109/46 100 Mechanical Ventilator 12/12/19 21:30 118 28 106/53 99 Mechanical Ventilator 12/12/19 21:00 28 Mechanical Ventilator 70 12/12/19 21:00 28 Mechanical Ventilator 70 12/12/19 21:00 121 28 99/57 99 Mechanical Ventilator 12/12/19 20:30 121 27 111/60 99 Mechanical Ventilator 12/12/19 20:00 70 12/12/19 20:00 27 Mechanical Ventilator 70 12/12/19 20:00 27 Mechanical Ventilator 70 12/12/19 20:00 102.7 121 28 105/51 99 Mechanical Ventilator 12/12/19 20:00 Mechanical Ventilator 12/12/19 20:00 121 12/12/19 19:45 28 Mechanical Ventilator 70 12/12/19 19:45 28 Mechanical Ventilator 70 12/12/19 19:41 123 29 100 12/12/19 19:30 120 30 110/56 99 Mechanical Ventilator 12/12/19 19:30 29 Mechanical Ventilator 70 12/12/19 19:30 29 Mechanical Ventilator 70 12/12/19 19:15 29 Mechanical Ventilator 70 12/12/19 19:15 29 Mechanical Ventilator 70 12/12/19 19:00 125 30 111/56 99 Mechanical Ventilator 12/12/19 19:00 20 Mechanical Ventilator 12/12/19 19:00 26 Mechanical Ventilator 12/12/19 18:52 103.0 12/12/19 18:30 128 29 116/61 99 Mechanical Ventilator 12/12/19 18:00 129 28 117/49 100 Mechanical Ventilator 12/12/19 18:00 19 Mechanical Ventilator 12/12/19 18:00 18 Mechanical Ventilator 12/12/19 17:30 129 28 122/53 98 Mechanical Ventilator 12/12/19 17:28 126 28 70 12/12/19 17:00 18 12/12/19 17:00 18 Mechanical Ventilator 12/12/19 17:00 103.0 127 29 120/56 97 Mechanical Ventilator 12/12/19 16:30 127 29 118/56 96 Mechanical Ventilator 12/12/19 16:00 70 12/12/19 16:00 128 12/12/19 16:00 18 Mechanical Ventilator 12/12/19 16:00 19 Mechanical Ventilator 12/12/19 16:00 Mechanical Ventilator 12/12/19 16:00 126 31 100/63 95 Mechanical Ventilator 12/12/19 15:30 127 29 110/56 96 Mechanical Ventilator 12/12/19 15:01 100.3 12/12/19 15:00 127 30 70 12/12/19 15:00 18 Mechanical Ventilator 12/12/19 15:00 127 30 123/47 96 Mechanical Ventilator 12/12/19 14:31 29 Mechanical Ventilator 50.0 70 12/12/19 14:30 124 27 115/52 98 Mechanical Ventilator 12/12/19 14:00 120 28 115/52 97 Mechanical Ventilator 12/12/19 13:30 120 29 110/46 97 Mechanical Ventilator 12/12/19 13:01 117 29 70 12/12/19 13:00 118 29 105/44 96 Mechanical Ventilator 12/12/19 12:30 117 31 92/42 97 Mechanical Ventilator 12/12/19 12:00 70 12/12/19 12:00 108 12/12/19 12:00 100.3 112 31 101/46 97 Mechanical Ventilator 12/12/19 12:00 Endotracheal Tube 12/12/19 11:54 100.3 12/12/19 11:30 106 27 99/50 100 Mechanical Ventilator 12/12/19 11:24 27 Mechanical Ventilator 50.0 70 12/12/19 11:24 26 149/79 Mechanical Ventilator 12/12/19 11:05 105 25 70 12/12/19 11:00 107 28 80/28 97 Mechanical Ventilator 12/12/19 11:00 26 162/74 Mechanical Ventilator 12/12/19 10:44 27 Mechanical Ventilator 50.0 70 12/12/19 10:30 110 27 82/31 96 Mechanical Ventilator 12/12/19 10:00 108 27 97/35 98 Mechanical Ventilator 12/12/19 09:51 27 124/41 Mechanical Ventilator 50.0 70 12/12/19 09:35 96.4 12/12/19 09:30 115 30 125/34 96 Mechanical Ventilator 12/12/19 09:05 27 Mechanical Ventilator 50.0 70 12/12/19 09:00 119 34 70 12/12/19 09:00 115 32 163/46 98 Mechanical Ventilator 12/12/19 08:30 102 29 118/41 99 Mechanical Ventilator 12/12/19 08:00 Endotracheal Tube 12/12/19 08:00 70 12/12/19 08:00 100.5 100 28 116/45 98 Mechanical Ventilator 12/12/19 08:00 28 134/67 Mechanical Ventilator 12/12/19 08:00 96 12/12/19 07:30 96 25 124/41 100 Mechanical Ventilator 12/12/19 07:00 96 27 124/41 99 Mechanical Ventilator 70 12/12/19 07:00 27 Mechanical Ventilator 70 12/12/19 07:00 27 124/41 Mechanical Ventilator 70 12/12/19 07:00 95 23 70 12/12/19 06:30 97 31 12/12/19 06:30 97 31 128/40 98 Mechanical Ventilator 70 12/12/19 06:00 97 31 124/41 98 Mechanical Ventilator 70 12/12/19 06:00 31 Mechanical Ventilator 70 12/12/19 06:00 31 124/41 Mechanical Ventilator 70 12/12/19 05:30 95 27 111/40 98 Mechanical Ventilator 70 12/12/19 05:08 99 22 70 12/12/19 05:00 26 Mechanical Ventilator 70 12/12/19 05:00 26 118/35 Mechanical Ventilator 70 12/12/19 05:00 93 26 118/35 93 Mechanical Ventilator 70 12/12/19 04:56 36 145/57 70 12/12/19 04:30 96 28 118/51 96 Mechanical Ventilator 70 12/12/19 04:15 98 30 129/45 95 Mechanical Ventilator 70 12/12/19 04:00 100 12/12/19 04:00 Endotracheal Tube 12/12/19 04:00 96.4 100 27 132/53 96 Mechanical Ventilator 70 12/12/19 04:00 27 Mechanical Ventilator 70 12/12/19 04:00 27 132/53 Mechanical Ventilator 70 12/12/19 04:00 70 12/12/19 03:30 103 30 99 Mechanical Ventilator 70 12/12/19 03:04 105 24 70 12/12/19 03:00 107 29 157/53 98 Mechanical Ventilator 70 12/12/19 03:00 29 Mechanical Ventilator 70 12/12/19 03:00 29 157/53 Mechanical Ventilator 70 12/12/19 02:30 91 18 100 Mechanical Ventilator 70 12/12/19 02:15 91 19 117/51 100 Mechanical Ventilator 70 12/12/19 02:00 97 20 133/53 100 Mechanical Ventilator 70 12/12/19 02:00 20 Mechanical Ventilator 70 12/12/19 02:00 20 133/53 Mechanical Ventilator 70 12/12/19 01:45 96 24 100 Mechanical Ventilator 50 12/12/19 01:30 99 21 103/42 100 Mechanical Ventilator 50 12/12/19 01:30 42 Mechanical Ventilator 70 12/12/19 01:15 36 Mechanical Ventilator 70 12/12/19 01:15 101 25 123/57 100 Mechanical Ventilator 50 12/12/19 01:00 27 Mechanical Ventilator 12/12/19 01:00 27 124/68 Mechanical Ventilator 12/12/19 01:00 106 22 95/42 100 Mechanical Ventilator 50 12/12/19 00:55 122 30 70 12/12/19 00:45 111 24 103/38 100 Mechanical Ventilator 50 12/12/19 00:30 113 24 113/43 100 Mechanical Ventilator 50 12/12/19 00:15 119 27 102/38 100 Mechanical Ventilator 50 12/12/19 00:10 98.9 12/12/19 00:00 Endotracheal Tube 12/12/19 00:00 28 Mechanical Ventilator 12/12/19 00:00 28 134/64 Mechanical Ventilator 12/12/19 00:00 126 28 124/47 99 Mechanical Ventilator 50 12/12/19 00:00 70 12/11/19 23:45 143 35 148/56 98 Mechanical Ventilator 50 12/11/19 23:37 148 12/11/19 23:30 153 37 135/47 97 Mechanical Ventilator 50 12/11/19 23:17 161 37 189/71 100 Mechanical Ventilator 50 12/11/19 23:15 162 37 100 Mechanical Ventilator 50 12/11/19 23:05 36 Mechanical Ventilator 70 12/11/19 23:03 36 180/121 Mechanical Ventilator 12/11/19 23:00 39 Mechanical Ventilator 70 12/11/19 23:00 39 185/99 Mechanical Ventilator 70 12/11/19 23:00 157 39 185/99 100 Mechanical Ventilator 50 12/11/19 22:45 135 28 195/66 99 Mechanical Ventilator 50 12/11/19 22:35 133 35 50 12/11/19 22:30 120 32 163/60 100 Mechanical Ventilator 50 12/11/19 22:15 113 28 156/65 100 Mechanical Ventilator 50 12/11/19 22:00 110 28 159/65 100 Mechanical Ventilator 50 12/11/19 22:00 28 Mechanical Ventilator 70 12/11/19 22:00 28 159/65 Mechanical Ventilator 70 12/11/19 21:45 112 28 121/57 100 Mechanical Ventilator 50 12/11/19 21:30 114 28 129/54 100 Mechanical Ventilator 50 12/11/19 21:15 116 28 135/50 100 Mechanical Ventilator 50 12/11/19 21:00 70 12/11/19 21:00 28 Mechanical Ventilator 70 12/11/19 21:00 28 142/61 Mechanical Ventilator 70 12/11/19 21:00 117 28 142/61 100 Mechanical Ventilator 50 12/11/19 20:45 120 29 145/65 100 Mechanical Ventilator 50 12/11/19 20:30 119 29 117/40 83 Mechanical Ventilator 50 12/11/19 20:15 114 34 121/60 98 Mechanical Ventilator 50 12/11/19 20:00 50 12/11/19 20:00 45 Mechanical Ventilator 70 12/11/19 20:00 45 119/41 Mechanical Ventilator 70 12/11/19 20:00 Endotracheal Tube 12/11/19 20:00 102.0 115 45 119/41 98 Mechanical Ventilator 50 12/11/19 19:45 116 50 123/46 98 Mechanical Ventilator 50 12/11/19 19:30 116 49 125/47 98 Mechanical Ventilator 50 12/11/19 19:25 117 12/11/19 19:15 119 36 121/55 98 Mechanical Ventilator 50 12/11/19 19:10 117 29 50 12/11/19 19:00 117 32 121/52 98 Mechanical Ventilator 50 12/11/19 19:00 32 121/52 Mechanical Ventilator 50 12/11/19 18:30 102.4 119 34 122/54 99 Mechanical Ventilator 50 12/11/19 18:00 34 Mechanical Ventilator 100 12/11/19 18:00 33 124/54 Mechanical Ventilator 50 12/11/19 18:00 120 34 129/57 97 Mechanical Ventilator 50 12/11/19 17:42 27 119/50 Mechanical Ventilator 100 12/11/19 17:30 119 25 119/50 97 Mechanical Ventilator 50 12/11/19 17:00 27 Mechanical Ventilator 100 12/11/19 17:00 27 119/50 Mechanical Ventilator 100 12/11/19 17:00 102.2 120 27 120/56 96 Mechanical Ventilator 50 12/11/19 16:30 121 29 127/55 96 Mechanical Ventilator 50 12/11/19 16:00 50 12/11/19 16:00 27 Endotracheal Tube 50 12/11/19 16:00 27 122/51 Endotracheal Tube 50 12/11/19 16:00 122 12/11/19 16:00 Endotracheal Tube 50.0 12/11/19 16:00 122 27 122/51 96 Mechanical Ventilator 50 12/11/19 15:30 122 28 109/60 96 Mechanical Ventilator 50 12/11/19 15:29 122 28 50 12/11/19 15:00 123 29 119/56 96 Mechanical Ventilator 50 12/11/19 15:00 29 Endotracheal Tube 50 12/11/19 15:00 29 119/56 Endotracheal Tube 50 12/11/19 14:30 122 32 127/57 96 Mechanical Ventilator 50 12/11/19 14:00 34 Endotracheal Tube 50 12/11/19 14:00 34 116/47 Endotracheal Tube 50 12/11/19 14:00 122 34 116/47 96 Mechanical Ventilator 50 12/11/19 13:30 101.7 123 46 112/52 96 Mechanical Ventilator 50 Intake and Output 12/12/19 12/13/19 19:00 07:00 Intake Total 1744.699 ml 491.09824 ml Output Total 395 ml 400 ml Balance 1349.699 ml 91.27293 ml Free Water 180 ml IV Total 1459.699 ml 371.67475 ml Tube Feeding 105 ml 120 ml Output Urine Total 395 ml 400 ml Labs Test 12/10/19 17:28 12/10/19 17:45 12/10/19 19:30 12/10/19 21:00 Arterial Blood pH 7.334 (7.350-7.450) Arterial Blood Partial Pressure CO2 27.4 mmHg (35.0-45.0) Arterial Blood Partial Pressure O2 56.4 mmHg (75.0-100.0) Arterial Blood HCO3 14.3 mmol/L (22.0-26.0) Arterial Blood Oxygen Saturation 84.0 % (95-100) Arterial Blood Base Excess -10.1 (-2-2) Guzman Test Positive Prothrombin Time 13.8 SEC (9.30-11.50) Prothromb Time International Ratio 1.3 (0.9-1.1) Activated Partial Thromboplast Time 28 SEC (23-33) Sodium Level 128 MMOL/L (136-145) Potassium Level 4.9 MMOL/L (3.5-5.1) Chloride Level 90 MMOL/L (98-107) Carbon Dioxide Level 14 MMOL/L (21-32) Anion Gap 24 mmol/L (5-15) Blood Urea Nitrogen 90 mg/dL (7-18) Creatinine 2.6 MG/DL (0.55-1.30) Estimat Glomerular Filtration Rate 27.8 mL/min (>60) Glucose Level 1247 MG/DL (74-106) Lactic Acid Level 9.60 mmol/L (0.4-2.0) 4.70 mmol/L (0.66-2.22) Calcium Level 8.0 MG/DL (8.5-10.1) Total Bilirubin 2.4 MG/DL (0.2-1.0) Direct Bilirubin 1.6 MG/DL (0.0-0.3) Aspartate Amino Transf (AST/SGOT) 40 U/L (15-37) Alanine Aminotransferase (ALT/SGPT) 36 U/L (12-78) Alkaline Phosphatase 110 U/L (46-116) Total Creatine Kinase 184 U/L (26-308) Creatine Kinase MB 2.4 NG/ML (0.0-3.6) Creatine Kinase MB Relative Index 1.3 Troponin I 0.000 ng/mL (0.000-0.056) Pro-B-Type Natriuretic Peptide 328 pg/mL (0-125) Total Protein 7.4 G/DL (6.4-8.2) Albumin 2.5 G/DL (3.4-5.0) Globulin 4.9 g/dL Albumin/Globulin Ratio 0.5 (1.0-2.7) Triglycerides Level 329 MG/DL (30-150) Urine Color Yellow Urine Appearance Clear Urine pH 5 (4.5-8.0) Urine Specific Sulphur 1.005 (1.005-1.035) Urine Protein 2+ (NEGATIVE) Urine Glucose (UA) Negative (NEGATIVE) Urine Ketones Negative (NEGATIVE) Urine Blood 3+ (NEGATIVE) Urine Nitrite Negative (NEGATIVE) Urine Bilirubin Negative (NEGATIVE) Urine Urobilinogen 4 MG/DL (0.0-1.0) Urine Leukocyte Esterase 1+ (NEGATIVE) Urine RBC 30-40 /HPF (0 - 0) Urine WBC 2-4 /HPF (0 - 0) Urine Squamous Epithelial Cells None /LPF (NONE/OCC) Urine Bacteria Occasional /HPF (NONE) Urine Opiates Screen Negative (NEGATIVE) Urine Barbiturates Screen Negative (NEGATIVE) Phencyclidine (PCP) Screen Negative (NEGATIVE) Urine Amphetamines Screen Negative (NEGATIVE) Urine Benzodiazepines Screen Positive (NEGATIVE) Urine Cocaine Screen Negative (NEGATIVE) Urine Marijuana (THC) Screen Negative (NEGATIVE) White Blood Count 9.6 K/UL (4.8-10.8) Red Blood Count 3.04 M/UL (4.70-6.10) Hemoglobin 9.8 G/DL (14.2-18.0) Hematocrit 27.6 % (42.0-52.0) Mean Corpuscular Volume 91 FL (80-99) Mean Corpuscular Hemoglobin 32.3 PG (27.0-31.0) Mean Corpuscular Hemoglobin Concent 35.6 G/DL (32.0-36.0) Red Cell Distribution Width 15.0 % (11.6-14.8) Platelet Count 20 K/UL (150-450) Mean Platelet Volume 9.4 FL (6.5-10.1) Neutrophils (%) (Auto) % (45.0-75.0) Lymphocytes (%) (Auto) % (20.0-45.0) Monocytes (%) (Auto) % (1.0-10.0) Eosinophils (%) (Auto) % (0.0-3.0) Basophils (%) (Auto) % (0.0-2.0) Differential Total Cells Counted 100 Neutrophils % (Manual) 24 % (45-75) Lymphocytes % (Manual) 58 % (20-45) Monocytes % (Manual) 18 % (1-10) Eosinophils % (Manual) 0 % (0-3) Basophils % (Manual) 0 % (0-2) Band Neutrophils 0 % (0-8) Platelet Estimate Decreased Platelet Morphology Normal Hypochromasia 1+ Anisocytosis 1+ D-Dimer > 35.20 mg/L FEU Hemoglobin A1c 11.9 % (4.3-6.0) Test 12/10/19 22:05 12/11/19 05:54 12/11/19 08:02 12/11/19 08:40 Arterial Blood pH 7.246 (7.350-7.450) 7.420 (7.350-7.450) Arterial Blood Partial Pressure CO2 42.0 mmHg (35.0-45.0) 33.8 mmHg (35.0-45.0) Arterial Blood Partial Pressure O2 84.6 mmHg (75.0-100.0) 286.5 mmHg (75.0-100.0) Arterial Blood HCO3 17.8 mmol/L (22.0-26.0) 21.4 mmol/L (22.0-26.0) Arterial Blood Oxygen Saturation 92.4 % (95-100) 98.2 % (95-100) Arterial Blood Base Excess -8.9 (-2-2) -2.5 (-2-2) Guzman Test Positive Positive White Blood Count 8.4 K/UL (4.8-10.8) Red Blood Count 3.03 M/UL (4.70-6.10) Hemoglobin 9.6 G/DL (14.2-18.0) Hematocrit 25.7 % (42.0-52.0) Mean Corpuscular Volume 85 FL (80-99) Mean Corpuscular Hemoglobin 31.6 PG (27.0-31.0) Mean Corpuscular Hemoglobin Concent 37.2 G/DL (32.0-36.0) Red Cell Distribution Width 13.5 % (11.6-14.8) Platelet Count 8 K/UL (150-450) Mean Platelet Volume 14.9 FL (6.5-10.1) Neutrophils (%) (Auto) % (45.0-75.0) Lymphocytes (%) (Auto) % (20.0-45.0) Monocytes (%) (Auto) % (1.0-10.0) Eosinophils (%) (Auto) % (0.0-3.0) Basophils (%) (Auto) % (0.0-2.0) Differential Total Cells Counted 100 Neutrophils % (Manual) 15 % (45-75) Lymphocytes % (Manual) 47 % (20-45) Monocytes % (Manual) 16 % (1-10) Eosinophils % (Manual) 1 % (0-3) Basophils % (Manual) 0 % (0-2) Blast Cells % 21 % (0-0) Band Neutrophils 0 % (0-8) Other Cell Type See comment Platelet Estimate Decreased Platelet Morphology Normal Sodium Level 154 MMOL/L (136-145) Potassium Level 4.3 MMOL/L (3.5-5.1) Chloride Level 118 MMOL/L (98-107) Carbon Dioxide Level 22 MMOL/L (21-32) Anion Gap 14 mmol/L (5-15) Blood Urea Nitrogen 63 mg/dL (7-18) Creatinine 1.2 MG/DL (0.55-1.30) Estimat Glomerular Filtration Rate > 60 mL/min (>60) Glucose Level 141 MG/DL (74-106) Calcium Level 7.8 MG/DL (8.5-10.1) Total Bilirubin 1.0 MG/DL (0.2-1.0) Aspartate Amino Transf (AST/SGOT) 38 U/L (15-37) Alanine Aminotransferase (ALT/SGPT) 31 U/L (12-78) Alkaline Phosphatase 85 U/L (46-116) Total Protein 6.2 G/DL (6.4-8.2) Albumin 2.1 G/DL (3.4-5.0) Globulin 4.1 g/dL Albumin/Globulin Ratio 0.5 (1.0-2.7) Lactic Acid Level 2.10 mmol/L (0.4-2.0) Test 12/11/19 12:50 12/12/19 03:47 12/12/19 08:35 12/12/19 09:30 Reticulocyte Count 0.9 % (0.5-2.0) Sickle Cell Screen Negative (Negative) Prothrombin Time 12.1 SEC (9.30-11.50) Prothromb Time International Ratio 1.1 (0.9-1.1) Sodium Level 158 MMOL/L (136-145) 146 MMOL/L (136-145) Potassium Level 4.6 MMOL/L (3.5-5.1) 4.4 MMOL/L (3.5-5.1) Chloride Level 123 MMOL/L (98-107) 115 MMOL/L (98-107) Carbon Dioxide Level 19 MMOL/L (21-32) 22 MMOL/L (21-32) Anion Gap 16 mmol/L (5-15) 9 mmol/L (5-15) Blood Urea Nitrogen 54 mg/dL (7-18) 39 mg/dL (7-18) Creatinine 1.1 MG/DL (0.55-1.30) 1.1 MG/DL (0.55-1.30) Estimat Glomerular Filtration Rate > 60 mL/min (>60) > 60 mL/min (>60) Glucose Level 143 MG/DL (74-106) 317 MG/DL (74-106) Uric Acid 5.4 MG/DL (2.6-7.2) 2.4 MG/DL (2.6-7.2) Calcium Level 7.6 MG/DL (8.5-10.1) 8.0 MG/DL (8.5-10.1) Phosphorus Level 1.8 MG/DL (2.5-4.9) 3.0 MG/DL (2.5-4.9) Magnesium Level 2.9 MG/DL (1.8-2.4) 2.8 MG/DL (1.8-2.4) Iron Level 92 ug/dL (50-175) Total Iron Binding Capacity 100 ug/dL (250-450) Percent Iron Saturation 92 % (15-50) Unsaturated Iron Binding 8 ug/dL (112-346) Ferritin > 2000 NG/ML (8-388) Total Bilirubin 1.1 MG/DL (0.2-1.0) 1.7 MG/DL (0.2-1.0) Direct Bilirubin 0.0 MG/DL (0.0-0.3) 1.5 MG/DL (0.0-0.3) Gamma Glutamyl Transpeptidase 63 U/L (5-85) Aspartate Amino Transf (AST/SGOT) 40 U/L (15-37) 46 U/L (15-37) Alanine Aminotransferase (ALT/SGPT) 30 U/L (12-78) 30 U/L (12-78) Alkaline Phosphatase 75 U/L (46-116) 72 U/L (46-116) Lactate Dehydrogenase 979 U/L (81-234) Troponin I 0.033 ng/mL (0.000-0.056) C-Reactive Protein, Quantitative 41.8 mg/dL (0.00-0.90) Pro-B-Type Natriuretic Peptide 224 pg/mL (0-125) Total Protein 5.7 G/DL (6.4-8.2) 5.9 G/DL (6.4-8.2) Albumin 2.0 G/DL (3.4-5.0) 1.8 G/DL (3.4-5.0) Globulin 3.7 g/dL Albumin/Globulin Ratio 0.5 (1.0-2.7) Triglycerides Level 391 MG/DL (30-150) 432 MG/DL (30-150) Cholesterol Level 138 MG/DL (< 200) LDL Cholesterol 65 mg/dL (<100) HDL Cholesterol 12 MG/DL (40-60) Cholesterol/HDL Ratio 11.5 (3.3-4.4) Lipase 44 U/L (73-393) Vitamin B12 Level > 2000 PG/ML (193-986) Folate 4.7 NG/ML (8.6-58.9) Thyroid Stimulating Hormone (TSH) 0.562 uiU/mL (0.358-3.740) Hepatitis A IgM Antibody Negative (Negative) Hepatitis B Surface Antigen Negative (Negative) Hepatitis B Core IgM Antibody Negative (Negative) Hepatitis C Antibody <0.1 s/co ratio White Blood Count 6.5 K/UL (4.8-10.8) 5.7 K/UL (4.8-10.8) Red Blood Count 2.55 M/UL (4.70-6.10) 2.41 M/UL (4.70-6.10) Hemoglobin 8.2 G/DL (14.2-18.0) 7.7 G/DL (14.2-18.0) Hematocrit 22.5 % (42.0-52.0) 20.9 % (42.0-52.0) Mean Corpuscular Volume 88 FL (80-99) 87 FL (80-99) Mean Corpuscular Hemoglobin 32.2 PG (27.0-31.0) 31.8 PG (27.0-31.0) Mean Corpuscular Hemoglobin Concent 36.5 G/DL (32.0-36.0) 36.6 G/DL (32.0-36.0) Red Cell Distribution Width 14.5 % (11.6-14.8) 13.8 % (11.6-14.8) Platelet Count 8 K/UL (150-450) 22 K/UL (150-450) Mean Platelet Volume 15.4 FL (6.5-10.1) 5.4 FL (6.5-10.1) Neutrophils (%) (Auto) % (45.0-75.0) % (45.0-75.0) Lymphocytes (%) (Auto) % (20.0-45.0) % (20.0-45.0) Monocytes (%) (Auto) % (1.0-10.0) % (1.0-10.0) Eosinophils (%) (Auto) % (0.0-3.0) % (0.0-3.0) Basophils (%) (Auto) % (0.0-2.0) % (0.0-2.0) Differential Total Cells Counted 100 100 Neutrophils % (Manual) 23 % (45-75) 27 % (45-75) Lymphocytes % (Manual) 35 % (20-45) 33 % (20-45) Monocytes % (Manual) 17 % (1-10) 18 % (1-10) Eosinophils % (Manual) 0 % (0-3) 0 % (0-3) Basophils % (Manual) 0 % (0-2) 0 % (0-2) Blast Cells % 25 % (0-0) 22 % (0-0) Band Neutrophils 0 % (0-8) 0 % (0-8) Nucleated Red Blood Cells 4 /100 WBC Platelet Estimate Decreased Decreased Platelet Morphology Normal Normal Hypochromasia 2+ 3+ Anisocytosis 1+ 1+ Macrocytosis HIV (1&2) Antibody Rapid Negative (NEGATIVE) Spherocytes 2+ Arterial Blood pH 7.420 (7.350-7.450) Arterial Blood Partial Pressure CO2 33.0 mmHg (35.0-45.0) Arterial Blood Partial Pressure O2 72.0 mmHg (75.0-100.0) Arterial Blood HCO3 21.0 mmol/L (22.0-26.0) Arterial Blood Oxygen Saturation 92.5 % (95-100) Arterial Blood Base Excess -3.1 (-2-2) Guzman Test Positive Test 12/12/19 09:35 12/13/19 04:00 Fibrinogen 406 mg/dL (200-400) White Blood Count 16.0 K/UL (4.8-10.8) Red Blood Count 2.55 M/UL (4.70-6.10) Hemoglobin 8.0 G/DL (14.2-18.0) Hematocrit 22.8 % (42.0-52.0) Mean Corpuscular Volume 89 FL (80-99) Mean Corpuscular Hemoglobin 31.5 PG (27.0-31.0) Mean Corpuscular Hemoglobin Concent 35.2 G/DL (32.0-36.0) Red Cell Distribution Width 14.4 % (11.6-14.8) Platelet Count 22 K/UL (150-450) Mean Platelet Volume 8.2 FL (6.5-10.1) Neutrophils (%) (Auto) % (45.0-75.0) Lymphocytes (%) (Auto) % (20.0-45.0) Monocytes (%) (Auto) % (1.0-10.0) Eosinophils (%) (Auto) % (0.0-3.0) Basophils (%) (Auto) % (0.0-2.0) Differential Total Cells Counted 100 Neutrophils % (Manual) 13 % (45-75) Lymphocytes % (Manual) 28 % (20-45) Monocytes % (Manual) 27 % (1-10) Eosinophils % (Manual) 0 % (0-3) Basophils % (Manual) 0 % (0-2) Metamyelocytes % 2 % (0-0) Myelocytes % 2 % (0-0) Blast Cells % 27 % (0-0) Band Neutrophils 1 % (0-8) Platelet Estimate Decreased Platelet Morphology Normal Red Blood Cell Morphology Normal Sodium Level 144 MMOL/L (136-145) Potassium Level 4.9 MMOL/L (3.5-5.1) Chloride Level 112 MMOL/L (98-107) Carbon Dioxide Level 23 MMOL/L (21-32) Anion Gap 9 mmol/L (5-15) Blood Urea Nitrogen 36 mg/dL (7-18) Creatinine 1.2 MG/DL (0.55-1.30) Estimat Glomerular Filtration Rate > 60 mL/min (>60) Glucose Level 213 MG/DL (74-106) Calcium Level 8.0 MG/DL (8.5-10.1) Phosphorus Level 5.1 MG/DL (2.5-4.9) Magnesium Level 2.7 MG/DL (1.8-2.4) Total Bilirubin 1.7 MG/DL (0.2-1.0) Direct Bilirubin 1.6 MG/DL (0.0-0.3) Aspartate Amino Transf (AST/SGOT) 57 U/L (15-37) Alanine Aminotransferase (ALT/SGPT) 25 U/L (12-78) Alkaline Phosphatase 78 U/L (46-116) Lactate Dehydrogenase 868 U/L (81-234) C-Reactive Protein, Quantitative 133.0 mg/dL (0.00-0.90) Pro-B-Type Natriuretic Peptide 743 pg/mL (0-125) Total Protein 6.4 G/DL (6.4-8.2) Albumin 1.7 G/DL (3.4-5.0) Globulin 4.7 g/dL Albumin/Globulin Ratio 0.4 (1.0-2.7) Height (Feet): 5 Height (Inches): 8.00 Weight (Pounds): 183 Objective Physical Exam: Vitals: reviewed General: NAD HEENT: nc, at Neck: supple Chest: clear breath sounds bilaterally +intubated Cardiovascular: RRR, no s3, s4 Abdomen: soft, nontender, nd Extremities: no cce, normal range of motion Neuro: ++confused Nicolás Guerrero MD Dec 13, 2019 13:09
--- NOTE | 2019-12-13 13:17 | General Progress Note ---
Assessment/Plan Problem List: (1) Diabetes mellitus out of control ICD Codes: E11.65 - Type 2 diabetes mellitus with hyperglycemia SNOMED: 80008089, 357269944 (2) Severe thrombocytopenia ICD Codes: D69.6 - Thrombocytopenia, unspecified SNOMED: 782545709 (3) COVID-19 virus infection ICD Codes: U07.1 - COVID-19 SNOMED: 693879660 (4) Acute respiratory failure ICD Codes: J96.00 - Acute respiratory failure, unspecified whether with hypoxia or hypercapnia SNOMED: 15507356 (5) MERRITT (acute kidney injury) ICD Codes: N17.9 - Acute kidney failure, unspecified SNOMED: 4929222, 69797677 (6) Hyperglycemia ICD Codes: R73.9 - Hyperglycemia, unspecified SNOMED: 58859474 (7) Anemia ICD Codes: D64.9 - Anemia, unspecified SNOMED: 707887823 (8) Respiratory failure ICD Codes: J96.90 - Respiratory failure, unspecified, unspecified whether with hypoxia or hypercapnia SNOMED: 042890140 (9) Pneumonia ICD Codes: J18.9 - Pneumonia, unspecified organism SNOMED: 097518326 Assessment/Plan: continue Novolog 5 units every 4 hours continue Levemir 10 units bid continue Novolog sliding scale every 4 hours Subjective ROS Limited/Unobtainable: Yes Allergies: Coded Allergies: UNABLE TO ASSESS (Unverified , 12/10/19) Subjective in ICU glucose values improved Item Value Date Time Bedside Blood Glucose 124 mg/dl H 12/13/19 1200 Bedside Blood Glucose 191 mg/dl H 12/13/19 0903 Bedside Blood Glucose 161 mg/dl H 12/13/19 0526 Bedside Blood Glucose 203 mg/dl H 12/13/19 0232 Bedside Blood Glucose 182 mg/dl H 12/12/19 2206 Bedside Blood Glucose 190 mg/dl H 12/12/19 1834 Bedside Blood Glucose 235 mg/dl H 12/12/19 1428 Bedside Blood Glucose 300 mg/dl H 12/12/19 0909 Objective Last 24 Hour Vital Signs Date Time Temp Pulse Resp B/P (MAP) Pulse Ox O2 Delivery O2 Flow Rate FiO2 12/13/19 11:43 88/39 12/13/19 10:30 102 17 88/39 86 Mechanical Ventilator 12/13/19 10:30 100 16 100 12/13/19 10:00 101 16 88/41 85 Mechanical Ventilator 12/13/19 09:30 101 16 82/41 90 Mechanical Ventilator 12/13/19 09:20 99 16 100 12/13/19 09:15 98.6 12/13/19 09:15 98.6 12/13/19 09:04 17 Mechanical Ventilator 50.0 100 12/13/19 09:00 100 16 90/42 84 Mechanical Ventilator 12/13/19 08:45 17 Mechanical Ventilator 50.0 100 12/13/19 08:30 91 23 86/42 78 Mechanical Ventilator 12/13/19 08:00 99 12/13/19 08:00 Mechanical Ventilator 12/13/19 08:00 98.1 97 19 91/40 75 Mechanical Ventilator 12/13/19 08:00 100 12/13/19 07:30 100 17 99/40 70 Mechanical Ventilator 12/13/19 07:30 102 17 100 12/13/19 07:00 16 Mechanical Ventilator 100 12/13/19 07:00 16 Mechanical Ventilator 100 12/13/19 07:00 102 17 96/43 70 Mechanical Ventilator 12/13/19 06:36 103 17 12/13/19 06:30 103 17 101/48 71 Mechanical Ventilator 12/13/19 06:00 106 16 107/50 78 Mechanical Ventilator 12/13/19 06:00 17 Mechanical Ventilator 100 12/13/19 06:00 17 Mechanical Ventilator 100 12/13/19 05:30 111 17 119/50 82 Mechanical Ventilator 12/13/19 05:23 17 Mechanical Ventilator 100 12/13/19 05:23 16 Mechanical Ventilator 100 12/13/19 05:00 113 16 109/49 82 Mechanical Ventilator 12/13/19 05:00 18 Mechanical Ventilator 100 12/13/19 05:00 18 Mechanical Ventilator 100 12/13/19 04:30 116 17 120/46 81 Mechanical Ventilator 12/13/19 04:00 110 12/13/19 04:00 100 12/13/19 04:00 Mechanical Ventilator 12/13/19 04:00 16 Mechanical Ventilator 100 12/13/19 04:00 16 Mechanical Ventilator 100 12/13/19 04:00 98.6 115 16 109/41 62 Mechanical Ventilator 12/13/19 03:30 99 14 101/43 36 Mechanical Ventilator 12/13/19 03:00 115 19 113/42 47 Mechanical Ventilator 12/13/19 03:00 17 Mechanical Ventilator 100 12/13/19 03:00 17 Mechanical Ventilator 100 12/13/19 02:58 114 29 100 12/13/19 02:30 123 19 131/44 Mechanical Ventilator 12/13/19 02:28 17 Mechanical Ventilator 100 12/13/19 02:00 126 19 132/48 Mechanical Ventilator 12/13/19 01:30 128 21 129/48 Mechanical Ventilator 12/13/19 01:15 128 21 122/50 Mechanical Ventilator 12/13/19 01:00 129 19 128/46 100 Mechanical Ventilator 12/13/19 01:00 20 Mechanical Ventilator 100 12/13/19 00:30 127 17 137/57 100 Mechanical Ventilator 12/13/19 00:00 120 12/13/19 00:00 101.0 120 19 126/53 97 Mechanical Ventilator 12/13/19 00:00 19 Mechanical Ventilator 100 12/13/19 00:00 19 Mechanical Ventilator 100 12/13/19 00:00 Mechanical Ventilator 12/13/19 00:00 100 12/12/19 23:45 124 25 143/44 53 Mechanical Ventilator 12/12/19 23:30 126 31 158/56 100 Mechanical Ventilator 12/12/19 23:19 28 Mechanical Ventilator 70 12/12/19 23:19 124 27 100 12/12/19 23:18 28 Mechanical Ventilator 70 12/12/19 23:15 126 28 164/58 74 Mechanical Ventilator 12/12/19 23:00 121 29 164/59 87 Mechanical Ventilator 12/12/19 22:30 110 25 128/59 99 Mechanical Ventilator 12/12/19 22:00 26 Mechanical Ventilator 70 12/12/19 22:00 26 Mechanical Ventilator 70 12/12/19 22:00 112 26 109/46 100 Mechanical Ventilator 12/12/19 21:30 118 28 106/53 99 Mechanical Ventilator 12/12/19 21:00 28 Mechanical Ventilator 70 12/12/19 21:00 28 Mechanical Ventilator 70 12/12/19 21:00 121 28 99/57 99 Mechanical Ventilator 12/12/19 20:30 121 27 111/60 99 Mechanical Ventilator 12/12/19 20:00 70 12/12/19 20:00 27 Mechanical Ventilator 70 12/12/19 20:00 27 Mechanical Ventilator 70 4/16/20 20:00 102.7 121 28 105/51 99 Mechanical Ventilator 12/12/19 20:00 Mechanical Ventilator 12/12/19 20:00 121 12/12/19 19:45 28 Mechanical Ventilator 70 12/12/19 19:45 28 Mechanical Ventilator 70 12/12/19 19:41 123 29 100 12/12/19 19:30 120 30 110/56 99 Mechanical Ventilator 12/12/19 19:30 29 Mechanical Ventilator 70 12/12/19 19:30 29 Mechanical Ventilator 70 12/12/19 19:15 29 Mechanical Ventilator 70 12/12/19 19:15 29 Mechanical Ventilator 70 12/12/19 19:00 125 30 111/56 99 Mechanical Ventilator 12/12/19 19:00 20 Mechanical Ventilator 12/12/19 19:00 26 Mechanical Ventilator 12/12/19 18:52 103.0 12/12/19 18:30 128 29 116/61 99 Mechanical Ventilator 12/12/19 18:00 129 28 117/49 100 Mechanical Ventilator 12/12/19 18:00 19 Mechanical Ventilator 12/12/19 18:00 18 Mechanical Ventilator 12/12/19 17:30 129 28 122/53 98 Mechanical Ventilator 12/12/19 17:28 126 28 70 12/12/19 17:00 18 12/12/19 17:00 18 Mechanical Ventilator 12/12/19 17:00 103.0 127 29 120/56 97 Mechanical Ventilator 12/12/19 16:30 127 29 118/56 96 Mechanical Ventilator 12/12/19 16:00 70 12/12/19 16:00 128 12/12/19 16:00 18 Mechanical Ventilator 12/12/19 16:00 19 Mechanical Ventilator 12/12/19 16:00 Mechanical Ventilator 12/12/19 16:00 126 31 100/63 95 Mechanical Ventilator 12/12/19 15:30 127 29 110/56 96 Mechanical Ventilator 12/12/19 15:01 100.3 12/12/19 15:00 127 30 70 12/12/19 15:00 18 Mechanical Ventilator 12/12/19 15:00 127 30 123/47 96 Mechanical Ventilator 12/12/19 14:31 29 Mechanical Ventilator 50.0 70 12/12/19 14:30 124 27 115/52 98 Mechanical Ventilator 12/12/19 14:00 120 28 115/52 97 Mechanical Ventilator 4/16/20 13:30 120 29 110/46 97 Mechanical Ventilator Intake and Output 12/12/19 12/13/19 19:00 07:00 Intake Total 1744.699 ml 491.59696 ml Output Total 395 ml 400 ml Balance 1349.699 ml 91.38979 ml Free Water 180 ml IV Total 1459.699 ml 371.50560 ml Tube Feeding 105 ml 120 ml Output Urine Total 395 ml 400 ml Laboratory Tests 12/13/19 04:00: White Blood Count 16.0#H, Red Blood Count 2.55L, Hemoglobin 8.0L, Hematocrit 22.8L, Mean Corpuscular Volume 89, Mean Corpuscular Hemoglobin 31.5H, Mean Corpuscular Hemoglobin Concent 35.2, Red Cell Distribution Width 14.4, Platelet Count 22L, Mean Platelet Volume 8.2, Neutrophils (%) (Auto) , Lymphocytes (%) ( Auto) , Monocytes (%) (Auto) , Eosinophils (%) (Auto) , Basophils (%) (Auto) , Differential Total Cells Counted 100, Neutrophils % (Manual) 13L, Lymphocytes % (Manual) 28, Monocytes % (Manual) 27H, Eosinophils % (Manual) 0, Basophils % ( Manual) 0, Metamyelocytes % 2H, Myelocytes % 2H, Blast Cells % 27*H, Band Neutrophils 1, Platelet Estimate DecreasedL, Platelet Morphology Normal, Red Blood Cell Morphology Normal, Sodium Level 144, Potassium Level 4.9, Chloride Level 112H, Carbon Dioxide Level 23, Anion Gap 9, Blood Urea Nitrogen 36H, Creatinine 1.2, Estimat Glomerular Filtration Rate > 60, Glucose Level 213#H, Calcium Level 8.0L, Phosphorus Level 5.1H, Magnesium Level 2.7H, Total Bilirubin 1.7H, Direct Bilirubin 1.6H, Aspartate Amino Transf (AST/SGOT) 57H, Alanine Aminotransferase (ALT/SGPT) 25, Alkaline Phosphatase 78, Lactate Dehydrogenase 868H, C-Reactive Protein, Quantitative 133.0H, Pro-B-Type Natriuretic Peptide 743H, Total Protein 6.4, Albumin 1.7L, Globulin 4.7, Albumin /Globulin Ratio 0.4L Height (Feet): 5 Height (Inches): 8.00 Weight (Pounds): 183 General Appearance: severe distress Neck: normal alignment Cardiovascular: normal rate Respiratory/Chest: lungs clear Abdomen: normal bowel sounds Objective Current Medications Medications (Trade) Dose Ordered Sig/Dariana Route PRN Reason Start Time Stop Time Status Last Admin Dose Admin Acetaminophen (Tylenol) 650 mg Q6H PRN ORAL Temp >100.5 12/11/19 13:00 01/10/20 12:59 12/12/19 18:22 Ceftriaxone Sodium 2 gm/ Sodium Chloride 55 ml @ 110 mls/hr Q24H IVPB 12/11/19 10:00 12/18/19 09:59 12/13/19 08:46 Chlorhexidine Gluconate (Ally-Hex 2%) 1 applic DAILY@2000 TOPIC 12/13/19 20:00 03/12/20 19:59 Dextrose (Dextrose 50%) 25 ml Q30M PRN IV Hypoglycemia 12/12/19 15:15 03/11/20 15:14 Dextrose (Dextrose 50%) 50 ml Q30M PRN IV Hypoglycemia 12/12/19 15:15 03/11/20 15:14 Fentanyl Citrate 2500 mcg/Sodium Chloride 250 ml @ 0 mls/hr Q24H IV 12/13/19 00:30 12/20/19 00:29 12/13/19 08:45 Folic Acid (Folate) 2 mg DAILY NG 12/12/19 09:00 01/11/20 08:59 12/13/19 08:46 Heparin Sodium/ Sodium Chloride (Heparin 1000 units/500ml Premix) 1,000 unit ONCE PRN IV PICC LINE PLACEMENT 12/13/19 13:00 12/15/19 12:59 Hydroxychloroquine Sulfate (Plaquenil) 200 mg BID ORAL 12/12/19 09:00 12/15/19 18:01 12/13/19 08:46 Insulin Aspart (NovoLOG) Q4H SUBQ 12/11/19 18:00 03/10/20 17:59 12/13/19 09:03 Insulin Aspart (NovoLOG) 5 units Q4H SUBQ 12/12/19 15:15 03/11/20 15:14 12/13/19 07:15 Insulin Detemir (Levemir) 10 units BID SUBQ 12/11/19 18:00 03/10/20 17:59 12/13/19 09:01 Lidocaine HCl (Xylocaine 1% 30ml) 30 ml ONCE PRN INJ PICC LINE PLACEMENT 12/13/19 13:00 12/15/19 12:59 Midazolam HCl 100 ml @ 0 mls/hr Q24H IV 12/13/19 08:45 12/20/19 08:44 12/13/19 09:04 Norepinephrine Bitartrate 8 mg/ Sodium Chloride 250 ml @ 0 mls/hr Q24H IV 12/13/19 11:15 01/12/20 11:14 12/13/19 11:43 Pantoprazole (Protonix) 40 mg EVERY 12 HOURS IVP 12/11/19 10:00 01/10/20 09:59 12/13/19 08:46 Sodium Chloride 1,000 ml @ 100 mls/hr Q10H IV 12/11/19 10:00 01/10/20 09:59 12/13/19 11:43 Vancomycin HCl (Vanco rx to dose) 1 ea DAILY PRN MISC Per rx protocol 12/12/19 20:15 01/11/20 20:14 Vancomycin/Sodium Chloride 275 ml @ 183.333 mls/hr Q12H IVPB 12/13/19 10:00 12/18/19 09:59 12/13/19 08:45 German Becerril MD Dec 13, 2019 13:17
--- NOTE | 2019-12-13 16:00 | NUR ---
NURSE NOTES: PICC line was inserted double lumen on left upper arm. Levophed was connected to PICC line, maintained at 8mcg/min.
--- NOTE | 2019-12-13 16:05 | NUR ---
NURSE NOTES: Bilateral soft wrist restraints were DC'd. Pt remains sedated while on Fentanyl and Versed drips. VS remain stable.
--- NOTE | 2019-12-13 16:32 | NUR ---
RADIOLOGY NOTE: LEFT UPPER EXTREMITY PICC LINE PLACED BY DR. ANNA RAMOS AT 1500 HOURS. FA
--- NOTE | 2019-12-13 16:53 | Brief Operative Note ---
Immediate Post Operative Note Operative Note Chief Complaint: SOB Pre-op Diagnosis: needs IV access Procedure: PICC Post-op Diagnosis: same as pre-op Surgeon: Francisco Durham Anesthesia: local Specimen: none Complications: none Fluids: none Implant(s) used?: No Godwin Durham MD Dec 13, 2019 16:53
--- NOTE | 2019-12-13 17:00 | Diagnostic Imaging Report ---
Indications: Needs long-term IV access Technique: Procedure performed at bedside. Procedural timeout performed. Ultrasound confirms patent compressible left basilic vein. Total sterile technique, including sterile probe cover and sterile gel, sterile gloves, hand hygiene, hat, mask,, sterile gown, large sterile drape, and preparation with 2% chlorhexidine utilized. Local anesthesia with 1% lidocaine. Under real-time ultrasound guidance, puncture left basilic vein using 21-gauge needle, passage 0.018 guidewire, exchange for 4 Macedonian peel-away sheath. 4 Macedonian Bard dual-lumen power PICC cut to 43 cm. It was inserted through the peel-away sheath. Peel-away sheath and guidewire removed. Catheter fixed to the skin. Both catheter ports aspirated and flushed. Patient tolerated procedure well, without immediate complication. Followup chest x-ray obtained, documents catheter tip position at the cavoatrial junction Impression: Successful bedside placement of left arm PICC under sonographic guidance, as described above.
--- NOTE | 2019-12-13 18:00 | NUR ---
NURSE NOTES: Pt was cleaned, gown/bed linens were changed, and pt repositioned. Oral care was done and pt was suctioned. VS remain stable while pt is maintained on Fentanyl drip at 150mcg/hr, Versed 8mg/hr to maintain RASS score of -2 light sedation, and Levophed drip at 8mcg/min to maintain SBP above 90.
--- NOTE | 2019-12-13 19:15 | NUR ---
HAND-OFF: Report given to Saniya MAHAN. Endorsed plan of care. VS remain stable.
--- NOTE | 2019-12-13 19:20 | NUR ---
NURSE NOTES: Received patient from NEGRITO Miller. Will continue plan of care.
[2019-12-13] MEDS ORDERED: Dyna-Hex 2% Top Sol 2oz TOPIC SCH (20:00)
--- NOTE | 2019-12-13 21:37 | General Progress Note ---
Assessment/Plan Problem List: (1) Pneumonia ICD Codes: J18.9 - Pneumonia, unspecified organism SNOMED: 316691682 (2) Anemia ICD Codes: D64.9 - Anemia, unspecified SNOMED: 914674711 (3) Acute respiratory failure ICD Codes: J96.00 - Acute respiratory failure, unspecified whether with hypoxia or hypercapnia SNOMED: 93582324 (4) Severe thrombocytopenia ICD Codes: D69.6 - Thrombocytopenia, unspecified SNOMED: 942118953 (5) Respiratory failure ICD Codes: J96.90 - Respiratory failure, unspecified, unspecified whether with hypoxia or hypercapnia SNOMED: 762460859 Assessment/Plan: covid positive pa npoor prognosis thrombocytopenia 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 respiratory failure on high oxygen continue supportive care Subjective ROS Limited/Unobtainable: Yes Allergies: Coded Allergies: UNABLE TO ASSESS (Unverified , 12/10/19) Objective Last 24 Hour Vital Signs Date Time Temp Pulse Resp B/P (MAP) Pulse Ox O2 Delivery O2 Flow Rate FiO2 12/13/19 21:00 16 Mechanical Ventilator 100 12/13/19 21:00 16 Mechanical Ventilator 100 12/13/19 20:00 115/51 12/13/19 20:00 20 Mechanical Ventilator 100 12/13/19 20:00 20 Mechanical Ventilator 100 12/13/19 20:00 Mechanical Ventilator 12/13/19 19:10 116 19 100 12/13/19 19:00 129/54 12/13/19 19:00 20 Mechanical Ventilator 12/13/19 19:00 20 Mechanical Ventilator 12/13/19 19:00 115 18 126/48 94 Mechanical Ventilator 12/13/19 18:30 115 17 124/50 95 Mechanical Ventilator 12/13/19 18:00 126/45 12/13/19 18:00 20 Mechanical Ventilator 12/13/19 18:00 20 Mechanical Ventilator 12/13/19 18:00 116 17 129/47 94 Mechanical Ventilator 12/13/19 17:45 98.6 12/13/19 17:30 116 22 118/53 93 Mechanical Ventilator 12/13/19 17:15 17 Mechanical Ventilator 50.0 100 12/13/19 17:00 114 17 111/53 89 Mechanical Ventilator 12/13/19 17:00 111/53 12/13/19 17:00 20 Mechanical Ventilator 12/13/19 17:00 20 Mechanical Ventilator 12/13/19 16:46 117 20 100 12/13/19 16:30 99.0 113 16 124/47 95 Mechanical Ventilator 12/13/19 16:00 112 17 123/54 94 Mechanical Ventilator 12/13/19 16:00 100 12/13/19 16:00 125/54 12/13/19 16:00 20 Mechanical Ventilator 12/13/19 16:00 20 Mechanical Ventilator 12/13/19 16:00 Mechanical Ventilator 12/13/19 16:00 112 12/13/19 15:30 112 16 113/49 92 Mechanical Ventilator 12/13/19 15:00 113 16 125/50 91 Mechanical Ventilator 12/13/19 15:00 122/44 12/13/19 15:00 20 Mechanical Ventilator 12/13/19 15:00 20 Mechanical Ventilator 12/13/19 14:46 112 16 100 12/13/19 14:30 114 16 127/55 95 Mechanical Ventilator 12/13/19 14:00 130/53 12/13/19 14:00 20 Mechanical Ventilator 12/13/19 14:00 20 Mechanical Ventilator 12/13/19 14:00 117 16 115/56 94 Mechanical Ventilator 12/13/19 13:30 118 16 120/47 95 Mechanical Ventilator 12/13/19 13:14 120 16 100 12/13/19 13:00 110/46 12/13/19 13:00 20 Mechanical Ventilator 12/13/19 13:00 20 Mechanical Ventilator 12/13/19 13:00 120 16 103/43 93 Mechanical Ventilator 12/13/19 12:30 122 16 110/45 94 Mechanical Ventilator 12/13/19 12:00 95 12/13/19 12:00 100 12/13/19 12:00 20 12/13/19 12:00 20 Mechanical Ventilator 12/13/19 12:00 Mechanical Ventilator 12/13/19 12:00 122 17 143/49 89 Mechanical Ventilator 12/13/19 11:43 88/39 12/13/19 11:30 97 16 91/34 87 Mechanical Ventilator 12/13/19 11:00 20 Mechanical Ventilator 12/13/19 11:00 20 Mechanical Ventilator 12/13/19 11:00 100 16 82/42 86 Mechanical Ventilator 12/13/19 10:30 102 17 88/39 86 Mechanical Ventilator 12/13/19 10:30 100 16 100 12/13/19 10:00 101 16 88/41 85 Mechanical Ventilator 12/13/19 10:00 20 Mechanical Ventilator 12/13/19 10:00 20 Mechanical Ventilator 12/13/19 09:30 101 16 82/41 90 Mechanical Ventilator 12/13/19 09:20 99 16 100 12/13/19 09:15 98.6 12/13/19 09:04 17 Mechanical Ventilator 50.0 100 12/13/19 09:00 100 16 90/42 84 Mechanical Ventilator 12/13/19 09:00 20 Mechanical Ventilator 12/13/19 08:45 17 Mechanical Ventilator 50.0 100 12/13/19 08:30 91 23 86/42 78 Mechanical Ventilator 12/13/19 08:00 99 12/13/19 08:00 Mechanical Ventilator 12/13/19 08:00 98.1 97 19 91/40 75 Mechanical Ventilator 12/13/19 08:00 18 Mechanical Ventilator 12/13/19 08:00 100 12/13/19 07:30 100 17 99/40 70 Mechanical Ventilator 12/13/19 07:30 102 17 100 12/13/19 07:00 16 Mechanical Ventilator 100 12/13/19 07:00 16 Mechanical Ventilator 100 12/13/19 07:00 102 17 96/43 70 Mechanical Ventilator 12/13/19 06:36 103 17 12/13/19 06:30 103 17 101/48 71 Mechanical Ventilator 12/13/19 06:00 106 16 107/50 78 Mechanical Ventilator 12/13/19 06:00 17 Mechanical Ventilator 100 12/13/19 06:00 17 Mechanical Ventilator 100 12/13/19 05:30 111 17 119/50 82 Mechanical Ventilator 12/13/19 05:23 17 Mechanical Ventilator 100 12/13/19 05:23 16 Mechanical Ventilator 100 12/13/19 05:00 113 16 109/49 82 Mechanical Ventilator 12/13/19 05:00 18 Mechanical Ventilator 100 12/13/19 05:00 18 Mechanical Ventilator 100 12/13/19 04:30 116 17 120/46 81 Mechanical Ventilator 12/13/19 04:00 110 12/13/19 04:00 100 12/13/19 04:00 Mechanical Ventilator 12/13/19 04:00 16 Mechanical Ventilator 100 12/13/19 04:00 16 Mechanical Ventilator 100 12/13/19 04:00 98.6 115 16 109/41 62 Mechanical Ventilator 12/13/19 03:30 99 14 101/43 36 Mechanical Ventilator 12/13/19 03:00 115 19 113/42 47 Mechanical Ventilator 12/13/19 03:00 17 Mechanical Ventilator 100 12/13/19 03:00 17 Mechanical Ventilator 100 12/13/19 02:58 114 29 100 12/13/19 02:30 123 19 131/44 Mechanical Ventilator 12/13/19 02:28 17 Mechanical Ventilator 100 12/13/19 02:00 126 19 132/48 Mechanical Ventilator 12/13/19 01:30 128 21 129/48 Mechanical Ventilator 12/13/19 01:15 128 21 122/50 Mechanical Ventilator 12/13/19 01:00 129 19 128/46 100 Mechanical Ventilator 12/13/19 01:00 20 Mechanical Ventilator 100 12/13/19 00:30 127 17 137/57 100 Mechanical Ventilator 12/13/19 00:00 120 12/13/19 00:00 101.0 120 19 126/53 97 Mechanical Ventilator 12/13/19 00:00 19 Mechanical Ventilator 100 12/13/19 00:00 19 Mechanical Ventilator 100 12/13/19 00:00 Mechanical Ventilator 12/13/19 00:00 100 12/12/19 23:45 124 25 143/44 53 Mechanical Ventilator 12/12/19 23:30 126 31 158/56 100 Mechanical Ventilator 12/12/19 23:19 28 Mechanical Ventilator 70 12/12/19 23:19 124 27 100 12/12/19 23:18 28 Mechanical Ventilator 70 12/12/19 23:15 126 28 164/58 74 Mechanical Ventilator 12/12/19 23:00 121 29 164/59 87 Mechanical Ventilator 12/12/19 22:30 110 25 128/59 99 Mechanical Ventilator 12/12/19 22:00 26 Mechanical Ventilator 70 12/12/19 22:00 26 Mechanical Ventilator 70 12/12/19 22:00 112 26 109/46 100 Mechanical Ventilator Intake and Output 12/12/19 12/13/19 19:00 07:00 Intake Total 1744.699 ml 491.36877 ml Output Total 395 ml 400 ml Balance 1349.699 ml 91.17149 ml Free Water 180 ml IV Total 1459.699 ml 371.89849 ml Tube Feeding 105 ml 120 ml Output Urine Total 395 ml 400 ml Laboratory Tests 12/13/19 04:00: White Blood Count 16.0#H, Red Blood Count 2.55L, Hemoglobin 8.0L, Hematocrit 22.8L, Mean Corpuscular Volume 89, Mean Corpuscular Hemoglobin 31.5H, Mean Corpuscular Hemoglobin Concent 35.2, Red Cell Distribution Width 14.4, Platelet Count 22L, Mean Platelet Volume 8.2, Neutrophils (%) (Auto) , Lymphocytes (%) ( Auto) , Monocytes (%) (Auto) , Eosinophils (%) (Auto) , Basophils (%) (Auto) , Differential Total Cells Counted 100, Neutrophils % (Manual) 13L, Lymphocytes % (Manual) 28, Monocytes % (Manual) 27H, Eosinophils % (Manual) 0, Basophils % ( Manual) 0, Metamyelocytes % 2H, Myelocytes % 2H, Blast Cells % 27*H, Band Neutrophils 1, Platelet Estimate DecreasedL, Platelet Morphology Normal, Red Blood Cell Morphology Normal, Sodium Level 144, Potassium Level 4.9, Chloride Level 112H, Carbon Dioxide Level 23, Anion Gap 9, Blood Urea Nitrogen 36H, Creatinine 1.2, Estimat Glomerular Filtration Rate > 60, Glucose Level 213#H, Calcium Level 8.0L, Phosphorus Level 5.1H, Magnesium Level 2.7H, Total Bilirubin 1.7H, Direct Bilirubin 1.6H, Aspartate Amino Transf (AST/SGOT) 57H, Alanine Aminotransferase (ALT/SGPT) 25, Alkaline Phosphatase 78, Lactate Dehydrogenase 868H, C-Reactive Protein, Quantitative 133.0H, Pro-B-Type Natriuretic Peptide 743H, Total Protein 6.4, Albumin 1.7L, Globulin 4.7, Albumin /Globulin Ratio 0.4L Height (Feet): 5 Height (Inches): 8.00 Weight (Pounds): 183 Marc Hawkins MD Dec 13, 2019 21:37
--- NOTE | 2019-12-13 22:00 | NUR ---
NURSE NOTES: No changes in patient condition. Turned and repositioned. Blood sugar 72, no insulin needed to be given. Will continue to monitor.
--- NOTE | 2019-12-13 22:00 | NUR ---
NURSE NOTES: Patient is intubated. ETT 7.5 @26cm to the lipline to vent with settings of AC:16, TV:600, FiO2:100%, PEEP:10, O2:93%. NGT left nare running Glucerna 1.2 @15ml/hr and will increase as tolerated to goal of 30ml/hr. Bhatia is intact and draining. Left upper arm PICC newly inserted is patent and running levophed @ 80mcg, Fentanyl @ 150mcg, Versed @ 8ml, and 1/2 NS @150ml. Patient remains on cooling blanket and temp continues to fluctuate but no fever. Safety measures in place, bed low, locked and alarm is on. Will continue to monitor.
--- NOTE | 2019-12-13 23:52 | Cardiology Progress Note ---
Assessment/Plan Assessment/Plan 1. Acute respiratory failure with O2 desaturation on FiO2 of 100% due to extensive bilateral airspace disease, confirmed COVID-19 viral infection. Continue ABx, hydroxychloroquine and vent support. 2. Sinus tachycardia, likely due to severe hypoxemia given the extensive bilateral airspace involvement. Also, there is likelihood of underlying acute leukemia. 3. 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 21% blasts in the peripheral smear. Subjective Subjective Sinus tachycardia at rate of 110. Intubated on FIO2 of 100%. Objective Last 24 Hour Vital Signs Date Time Temp Pulse Resp B/P (MAP) Pulse Ox O2 Delivery O2 Flow Rate FiO2 12/13/19 23:00 109/42 12/13/19 23:00 16 Mechanical Ventilator 100 12/13/19 22:54 110 19 100 12/13/19 22:30 109 19 106/43 93 Mechanical Ventilator 12/13/19 22:15 108 20 100/42 94 Mechanical Ventilator 12/13/19 22:00 107 24 112/47 94 Mechanical Ventilator 12/13/19 22:00 106/43 12/13/19 22:00 16 Mechanical Ventilator 100 12/13/19 21:30 107 23 124/45 94 Mechanical Ventilator 12/13/19 21:15 108 20 124/44 94 Mechanical Ventilator 12/13/19 21:00 109 19 121/49 93 Mechanical Ventilator 12/13/19 21:00 16 Mechanical Ventilator 100 12/13/19 21:00 16 Mechanical Ventilator 100 12/13/19 20:45 110 23 115/51 94 Mechanical Ventilator 12/13/19 20:30 110 19 112/52 93 Mechanical Ventilator 12/13/19 20:15 111 21 124/46 94 Mechanical Ventilator 12/13/19 20:00 97.7 112 18 124/53 94 Mechanical Ventilator 12/13/19 20:00 100 12/13/19 20:00 115/51 12/13/19 20:00 20 Mechanical Ventilator 100 12/13/19 20:00 20 Mechanical Ventilator 100 12/13/19 20:00 Mechanical Ventilator 12/13/19 19:45 113 19 122/50 94 Mechanical Ventilator 12/13/19 19:30 114 20 109/49 94 Mechanical Ventilator 12/13/19 19:10 116 19 100 12/13/19 19:00 129/54 12/13/19 19:00 20 Mechanical Ventilator 12/13/19 19:00 20 Mechanical Ventilator 12/13/19 19:00 115 18 126/48 94 Mechanical Ventilator 12/13/19 18:30 115 17 124/50 95 Mechanical Ventilator 12/13/19 18:00 126/45 12/13/19 18:00 20 Mechanical Ventilator 12/13/19 18:00 20 Mechanical Ventilator 12/13/19 18:00 116 17 129/47 94 Mechanical Ventilator 12/13/19 17:45 98.6 12/13/19 17:30 116 22 118/53 93 Mechanical Ventilator 12/13/19 17:15 17 Mechanical Ventilator 50.0 100 12/13/19 17:00 114 17 111/53 89 Mechanical Ventilator 12/13/19 17:00 111/53 12/13/19 17:00 20 Mechanical Ventilator 12/13/19 17:00 20 Mechanical Ventilator 12/13/19 16:46 117 20 100 12/13/19 16:30 99.0 113 16 124/47 95 Mechanical Ventilator 12/13/19 16:00 112 17 123/54 94 Mechanical Ventilator 12/13/19 16:00 100 12/13/19 16:00 125/54 12/13/19 16:00 20 Mechanical Ventilator 12/13/19 16:00 20 Mechanical Ventilator 12/13/19 16:00 Mechanical Ventilator 12/13/19 16:00 112 12/13/19 15:30 112 16 113/49 92 Mechanical Ventilator 12/13/19 15:00 113 16 125/50 91 Mechanical Ventilator 12/13/19 15:00 122/44 12/13/19 15:00 20 Mechanical Ventilator 12/13/19 15:00 20 Mechanical Ventilator 12/13/19 14:46 112 16 100 12/13/19 14:30 114 16 127/55 95 Mechanical Ventilator 12/13/19 14:00 130/53 12/13/19 14:00 20 Mechanical Ventilator 12/13/19 14:00 20 Mechanical Ventilator 12/13/19 14:00 117 16 115/56 94 Mechanical Ventilator 12/13/19 13:30 118 16 120/47 95 Mechanical Ventilator 12/13/19 13:14 120 16 100 12/13/19 13:00 110/46 12/13/19 13:00 20 Mechanical Ventilator 12/13/19 13:00 20 Mechanical Ventilator 12/13/19 13:00 120 16 103/43 93 Mechanical Ventilator 12/13/19 12:30 122 16 110/45 94 Mechanical Ventilator 12/13/19 12:00 95 12/13/19 12:00 100 12/13/19 12:00 20 12/13/19 12:00 20 Mechanical Ventilator 12/13/19 12:00 Mechanical Ventilator 12/13/19 12:00 122 17 143/49 89 Mechanical Ventilator 12/13/19 11:43 88/39 12/13/19 11:30 97 16 91/34 87 Mechanical Ventilator 12/13/19 11:00 20 Mechanical Ventilator 12/13/19 11:00 20 Mechanical Ventilator 12/13/19 11:00 100 16 82/42 86 Mechanical Ventilator 12/13/19 10:30 102 17 88/39 86 Mechanical Ventilator 12/13/19 10:30 100 16 100 12/13/19 10:00 101 16 88/41 85 Mechanical Ventilator 12/13/19 10:00 20 Mechanical Ventilator 12/13/19 10:00 20 Mechanical Ventilator 12/13/19 09:30 101 16 82/41 90 Mechanical Ventilator 12/13/19 09:20 99 16 100 12/13/19 09:15 98.6 12/13/19 09:04 17 Mechanical Ventilator 50.0 100 12/13/19 09:00 100 16 90/42 84 Mechanical Ventilator 12/13/19 09:00 20 Mechanical Ventilator 12/13/19 08:45 17 Mechanical Ventilator 50.0 100 12/13/19 08:30 91 23 86/42 78 Mechanical Ventilator 12/13/19 08:00 99 12/13/19 08:00 Mechanical Ventilator 12/13/19 08:00 98.1 97 19 91/40 75 Mechanical Ventilator 12/13/19 08:00 18 Mechanical Ventilator 12/13/19 08:00 100 12/13/19 07:30 100 17 99/40 70 Mechanical Ventilator 12/13/19 07:30 102 17 100 12/13/19 07:00 16 Mechanical Ventilator 100 12/13/19 07:00 16 Mechanical Ventilator 100 12/13/19 07:00 102 17 96/43 70 Mechanical Ventilator 12/13/19 06:36 103 17 12/13/19 06:30 103 17 101/48 71 Mechanical Ventilator 12/13/19 06:00 106 16 107/50 78 Mechanical Ventilator 12/13/19 06:00 17 Mechanical Ventilator 100 12/13/19 06:00 17 Mechanical Ventilator 100 12/13/19 05:30 111 17 119/50 82 Mechanical Ventilator 12/13/19 05:23 17 Mechanical Ventilator 100 12/13/19 05:23 16 Mechanical Ventilator 100 12/13/19 05:00 113 16 109/49 82 Mechanical Ventilator 12/13/19 05:00 18 Mechanical Ventilator 100 12/13/19 05:00 18 Mechanical Ventilator 100 12/13/19 04:30 116 17 120/46 81 Mechanical Ventilator 12/13/19 04:00 110 12/13/19 04:00 100 12/13/19 04:00 Mechanical Ventilator 12/13/19 04:00 16 Mechanical Ventilator 100 12/13/19 04:00 16 Mechanical Ventilator 100 12/13/19 04:00 98.6 115 16 109/41 62 Mechanical Ventilator 12/13/19 03:30 99 14 101/43 36 Mechanical Ventilator 12/13/19 03:00 115 19 113/42 47 Mechanical Ventilator 12/13/19 03:00 17 Mechanical Ventilator 100 12/13/19 03:00 17 Mechanical Ventilator 100 12/13/19 02:58 114 29 100 12/13/19 02:30 123 19 131/44 Mechanical Ventilator 12/13/19 02:28 17 Mechanical Ventilator 100 12/13/19 02:00 126 19 132/48 Mechanical Ventilator 12/13/19 01:30 128 21 129/48 Mechanical Ventilator 12/13/19 01:15 128 21 122/50 Mechanical Ventilator 12/13/19 01:00 129 19 128/46 100 Mechanical Ventilator 12/13/19 01:00 20 Mechanical Ventilator 100 12/13/19 00:30 127 17 137/57 100 Mechanical Ventilator 12/13/19 00:00 120 12/13/19 00:00 101.0 120 19 126/53 97 Mechanical Ventilator 12/13/19 00:00 19 Mechanical Ventilator 100 12/13/19 00:00 19 Mechanical Ventilator 100 12/13/19 00:00 Mechanical Ventilator 12/13/19 00:00 100 12/12/19 23:45 124 25 143/44 53 Mechanical Ventilator Intake and Output 12/12/19 12/13/19 19:00 07:00 Intake Total 1744.699 ml 491.52225 ml Output Total 395 ml 400 ml Balance 1349.699 ml 91.99494 ml Free Water 180 ml IV Total 1459.699 ml 371.49959 ml Tube Feeding 105 ml 120 ml Output Urine Total 395 ml 400 ml Laboratory Tests Test 12/13/19 04:00 White Blood Count 16.0 K/UL (4.8-10.8) #H Red Blood Count 2.55 M/UL (4.70-6.10) L Hemoglobin 8.0 G/DL (14.2-18.0) L Hematocrit 22.8 % (42.0-52.0) L Mean Corpuscular Volume 89 FL (80-99) Mean Corpuscular Hemoglobin 31.5 PG (27.0-31.0) H Mean Corpuscular Hemoglobin Concent 35.2 G/DL (32.0-36.0) Red Cell Distribution Width 14.4 % (11.6-14.8) Platelet Count 22 K/UL (150-450) L Mean Platelet Volume 8.2 FL (6.5-10.1) Neutrophils (%) (Auto) % (45.0-75.0) Lymphocytes (%) (Auto) % (20.0-45.0) Monocytes (%) (Auto) % (1.0-10.0) Eosinophils (%) (Auto) % (0.0-3.0) Basophils (%) (Auto) % (0.0-2.0) Differential Total Cells Counted 100 Neutrophils % (Manual) 13 % (45-75) L Lymphocytes % (Manual) 28 % (20-45) Monocytes % (Manual) 27 % (1-10) H Eosinophils % (Manual) 0 % (0-3) Basophils % (Manual) 0 % (0-2) Metamyelocytes % 2 % (0-0) H Myelocytes % 2 % (0-0) H Blast Cells % 27 % (0-0) *H Band Neutrophils 1 % (0-8) Platelet Estimate Decreased L Platelet Morphology Normal Red Blood Cell Morphology Normal Sodium Level 144 MMOL/L (136-145) Potassium Level 4.9 MMOL/L (3.5-5.1) Chloride Level 112 MMOL/L (98-107) H Carbon Dioxide Level 23 MMOL/L (21-32) Anion Gap 9 mmol/L (5-15) Blood Urea Nitrogen 36 mg/dL (7-18) H Creatinine 1.2 MG/DL (0.55-1.30) Estimat Glomerular Filtration Rate > 60 mL/min (>60) Glucose Level 213 MG/DL (74-106) #H Calcium Level 8.0 MG/DL (8.5-10.1) L Phosphorus Level 5.1 MG/DL (2.5-4.9) H Magnesium Level 2.7 MG/DL (1.8-2.4) H Total Bilirubin 1.7 MG/DL (0.2-1.0) H Direct Bilirubin 1.6 MG/DL (0.0-0.3) H Aspartate Amino Transf (AST/SGOT) 57 U/L (15-37) H Alanine Aminotransferase (ALT/SGPT) 25 U/L (12-78) Alkaline Phosphatase 78 U/L (46-116) Lactate Dehydrogenase 868 U/L (81-234) H C-Reactive Protein, Quantitative 133.0 mg/dL (0.00-0.90) H Pro-B-Type Natriuretic Peptide 743 pg/mL (0-125) H Total Protein 6.4 G/DL (6.4-8.2) Albumin 1.7 G/DL (3.4-5.0) L Globulin 4.7 g/dL Albumin/Globulin Ratio 0.4 (1.0-2.7) L Objective HEENT: Atraumatic and normocephalic. Anicteric. Pupils are equal, round, and reactive to light and accommodation. NECK: JVP cannot be assessed as he is on the ventilator. LUNGS: Bilateral crackles. CARDIOVASCULAR SYSTEM: Normal S1, S2. Tachycardic. No murmurs, gallops, or rubs. PMI is at fourth intercostal space at midclavicular line. ABDOMEN: Soft, nontender, nondistended. No hepatosplenomegaly. Positive bowel sounds. EXTREMITIES: No evidence of edema, clubbing, or cyanosis. Vikash Moreno MD Dec 13, 2019 23:52
[2019-12-14] VITALS (27 sets, daily range): BP systolic 69–164; BP diastolic 29–96
[2019-12-14] MEDS: fentaNYL Citrate 2500mcg in NS 250ml IV SCH (02:45)
--- NOTE | 2019-12-14 02:45 | NUR ---
NURSE NOTES: Patient SBP been in the 80s the last hour. BP:88/41 currently. Increased levophed to 12mcg.
--- NOTE | 2019-12-14 02:45 | NUR ---
NURSE NOTES: Blood sugar 35. D50 given via IV. Will recheck in 15min.
[2019-12-14] MEDS: NovoLOG Insulin Flexpen SUBQ SCH ×2 (02:49)
--- NOTE | 2019-12-14 03:01 | NUR ---
NURSE NOTES: Blood sugar re-checked: 114. Will continue to monitor.
--- NOTE | 2019-12-14 03:15 | NUR ---
NURSE NOTES: Current BP:98/44. Will keep monitoring
--- NOTE | 2019-12-14 04:00 | NUR ---
NURSE NOTES: Bed bath given with sherin-hex. PICC line dressing changed. BP: 77/36 increased levophed to 18mcg. O2 saturating mid 80s. Will keep monitoring.
[2019-12-14] MEDS ORDERED: 1/2 NS 1000ml IV ONE ×2 (05:59)
[2019-12-14] MEDS ORDERED: Calcium Chloride 10% 10ml carpuject IVP ONE (05:59)
[2019-12-14] MEDS ORDERED: Sterile Water Irrig 1000ml IRRIG ONE (05:59)
[2019-12-14] MEDS ORDERED: Tubing IV Secondary IV ONE (05:59)
[2019-12-14] MEDS ORDERED: Sodium Bicarbonate 8.4% 50ml Inj ONE (05:59)
[2019-12-14] MEDS ORDERED: NS 500ML ONE (05:59)
[2019-12-14] MEDS ORDERED: Tubing Blood Filter IV ONE (05:59)
[2019-12-14] MEDS ORDERED: NS 275ml ONE (05:59)
--- NOTE | 2019-12-14 06:10 | NUR ---
NURSE NOTES: dr olea called and left meaage that patient , kalee nolasco also notified
--- NOTE | 2019-12-14 06:15 | NUR ---
NURSE NOTES: Patient BP and HR started to decreased suddenly and rhythm became asystole on the monitor. Pulse check with no pulse, rima tyler was called and CPR ACLS started. See code sheet for information.
--- NOTE | 2019-12-14 06:22 | Emergency Room Report ---
History of Present Illness General Chief Complaint: Dyspnea/Respdistress Source: Patient, Family Member, EMS Present Illness Allergies: Coded Allergies: UNABLE TO ASSESS (Unverified , 12/10/19) COVID-19 Screening Contact w/high risk pt: Yes Recent Travel to affected area: No Experienced COVID-19 symptoms?: No COVID-19 symptoms experienced: Shortness of Breath, Cough, Flu-Like Symptoms Nursing Documentation-[facility] Past Medical History Deferred: Patient Unconscious Past Medical History: Deferred Physical Exam Vital Signs Date Time Temp Pulse Resp B/P (MAP) Pulse Ox O2 Delivery O2 Flow Rate FiO2 12/10/19 17:28 96.3 130 35 112/60 (77) 94 Non-Rebreather 15.0 12/10/19 20:00 100 Procedures Critical Care Time Critical Care Time i. I feel this is a highly complex case requiring extensive working including EKG/Rhythm strip, Xray/CT/US, Blood/urine lab work, repeat exams while in ED, and administration of strong opiates/narcotics for pain control, admission to hospital or close patient follow up. Total time: 30 min bedside evaluation and treatment excludes procedures (EKG). Reason for critical care: cardiac Arrest Possible complications: hypotension, hypertension, TN, shock, arrhythmias, metabolic acidosis, end organ damage, respiratory failure. Interventions: ACLS, chest compressions, epinephrine, calcium, bicarbonate Course: TRICIA LUND called in ICU. Patient already intubated. COVID positive. Admitted with DKA. Also diagnosed with AML. Patient already on pressors. After multiple rounds of epinephrine, calcium, bicarbonate patient remains in PEA. Prognosis poor. Resuscitative efforts terminated. Patient expires Consultations: nursing staff, EMS, family Performed by: Dr Hubbard Tolerated well condition = j. because of unstable vital signs this patient had a condition that could potentially threaten life or limb. I feel this is a critical patient who required my full attention while patient was considered critical. Total Critical Care Time excluding procedures was greater than 35 minutes CPR/Code Blue CPR/Code Blue Narrative See CODE BLUE sheet for full narrative Medical Decision Making Diagnostic Impression: Primary Impression: Respiratory failure Additional Impressions: COVID-19 virus infection Pneumonia ER Course Was called to the ICU for this CODE BLUE. Patient in PEA. Chest compressions started. Patient intubated. COVID positive. Admitted with DKA. Diagnosed with AML during hospital course. Patient currently on pressors. After multiple rounds of chest compressions, epinephrine x4, calcium, bicarbonate patient remains in PEA. Prognosis is poor. Resuscitative efforts terminated. Patient expires Last Vital Signs Date Time Temp Pulse Resp B/P (MAP) Pulse Ox O2 Delivery O2 Flow Rate FiO2 12/14/19 04:00 16 Mechanical Ventilator 100 12/14/19 03:45 77/36 12/14/19 03:45 97 87 12/14/19 00:00 99.0 12/13/19 17:15 50.0 Status: worsened Disposition: Condition: Referrals: NOT CHOSEN IPA/,REFERRING (PCP) Jefry Hubbard MD Dec 14, 2019 06:22
[2019-12-14 07:36] LABS: HEMATOCRIT 23.9 % (42.0-52.0); HEMOGLOBIN 8.1 G/DL (14.2-18.0); MEAN CORPUSCULAR VOLUME 95 FL (80-99); PLATELET COUNT 34 K/UL (150-450); RED BLOOD COUNT 2.51 M/UL (4.70-6.10); RED CELL DISTRIBUTION WIDTH 16.9 % (11.6-14.8)
[2019-12-14 08:06] LABS: WHITE BLOOD COUNT 39.6 K/UL (4.8-10.8)
--- NOTE | 2019-12-14 12:11 | NUR ---
@1000/FAMILY NOTIFID BY WILMAN BRIGHT
--- NOTE | 2019-12-16 10:24 | Discharge Summary ---
Discharge Summary Discharge Summary _ SUMMARY DATE OF ADMISSION: 12/10/2019 DATE OF EXPIRATION: 12/14/2019 REASON FOR ADMISSION: 39 years old male , with unknown past medical history, admitted with shortness of breath and confusion. Per family, patient has been sick for over the past 2 weeks. No details were known. Upon presentation patient was tachycardic, tachypneic, and hypoxic, requiring 100% nonrebreathing mask. ABG on 100% nonrebreathing mask showed severe hypoxia with O2 sat 84%. Patient was urgently intubated in the emergency department. Laboratory work-up revealed no leukocytosis ,hemoglobin 9.8 ,hematocrit 27.6. Lactic acid 9.6, repeated 4.7 Chemistry showed sodium 128, chloride 90, anion gap 24. BUN 90, creatinine 2.6. Glucose 1247. Total bilirubin 2.4, direct bilirubin 1.6. Troponin negative. Pro BNP 328. AST 40, ALT 36. Urine toxicology screen was positive for benzodiazepine. Urinalysis revealed microscopic hematuria , +1 leukocyte esterase, no pyuria , no bacteria. Chest x-ray demonstrated extensive interstitial and patchy bilateral airspace opacities, concerning for multifocal pneumonia, including atypical/viral pneumonia. Influenza screen was negative. Patient was tested for DAVID CoVID-19 by PCR and admitted to ICU for further management. CONSULTANTS: hair specialist Dr. Moreno pulmonary Dr. Ly steam tender ID specialist Dr. Pietro Rodriguez teacher specialist Dr. Miller thermo cementing folder operator/oncologist Dr. Guerrero [facility] COURSE: Patient admitted to ICU to isolation room. Patient started on IV fluids and empiric antibiotics. Blood cultures revealed Staph hominis, likely contaminant. DAVID CoVID PCR was detected. Isolation continued. Patient started on Plaquenil. Blood sugar was managed as per steam tender recommendations. Patient had gap acidosis due to lactic acidosis and hyperglycemia without evidence of DKA, as per steam tender. Patient was on insulin drip as per protocol. Glucose was checked every 2 hours. Subsequently when anion gap closed , patient converted to long-acting insulin twice a day , short acting insulin every 4 hours and sliding scale of insulin every 4 hours as needed. Hemoglobin A1c was 11.9. It was unclear if patient was diagnosed with diabetes mellitus in the past, but it clearly was out of control. Renal parameters and electrolytes were closely monitored. Renal failure was mainly due to dehydration secondary to osmotic diuresis. With IV hydration ,creatinine trended down to 1.2. Sodium stabilized as blood sugar improved. Hepatitis panel was negative. HIV test was nonreactive. Engineering Equipment Operator followed. Peripheral smear demonstrated blast cells. Platelet count was dangerously low -8. Platelet transfusion was ordered. Flow cytometry findings were consistent with diagnosis of acute myeloid leukemia. Per thermo cementing folder operator , patient will require intensive high-dose of the chemotherapy. Engineering Equipment Operator recommended transfer to higher level of care in terms of chemotherapy hospital such as [facility] , [facility] , [facility] or [facility]. On 12/12 hemodynamic status became compromised , and patient required initiation of pressors. Hemodynamic status was closely monitored with goal to keep mean arterial blood pressure above 65. Grave prognosis was discussed with patient's cousin. All specialist recommended DNR/DNI status. On 12/13 CODE BLUE was called and initiated as per ACLS protocol. Despite multiple rounds of chest compression, epinephrine, calcium bicarbonate ,patient remained in pulseless electrical activity. Resuscitative efforts were terminated. Patient was pronounced at 06:00am on 12/14/19. Cause of : cardiopulmonary arrest due to COVID 19 infection FINAL DIAGNOSES: S/p cardiopulmonary arrest Acute hypoxemic respiratory failure, requiring intubation Sepsis COVID-19 pneumonia Diabetes mellitus with hyperglycemia DM out of control /HgA1c 11.9 Acute kidney injury due to dehydration Acute metabolic and toxic encephalopathy Acute myeloid leukemia- newly diagnosed Severe thrombocytopenia Anemia of chronic disease Thrombocytopenia I have been assigned to dictate discharge summary for this account. I was not involved in the patient's management. Yuliana Ren NP Dec 16, 2019 10:24
== END 2019-12-14 06:00 | disposition expired | DRG 871 ==
LOC: EDBD 17:25 → EDBEDREQ 17:49 → EMR 17:56 → ICU 17:57 → EDBEDREQSVC 18:30 → EDBEDREQ 23:34
PROC: 5A1945Z Respiratory Ventilation, 24-96 Consecutive Hours (ICD-10-PCS; principal; 2019-12-11)
PROC: 0BH17EZ Insertion of Endotracheal Airway into Trachea, Via Natural or Artificial Opening (ICD-10-PCS; principal; 2019-12-11)
PROC: 30233R1 Transfusion of Nonautologous Platelets into Peripheral Vein, Percutaneous Approach (ICD-10-PCS; 2019-12-12)
PROC: 02HV33Z Insertion of Infusion Device into Superior Vena Cava, Percutaneous Approach (ICD-10-PCS; 2019-12-13)
PROC: 5A12012 Performance of Cardiac Output, Single, Manual (ICD-10-PCS; 2019-12-14)
DX: A41.89 Other specified sepsis (principal); U07.1 COVID-19; J12.89 Other viral pneumonia; J96.01 Acute respiratory failure with hypoxia; G92 Toxic encephalopathy; D65 Disseminated intravascular coagulation [defibrination syndrome]; C92.00 Acute myeloblastic leukemia, not having achieved remission; E87.1 Hypo-osmolality and hyponatremia; N17.9 Acute kidney failure, unspecified; E86.0 Dehydration; D69.6 Thrombocytopenia, unspecified; E11.65 Type 2 diabetes mellitus with hyperglycemia; D63.8 Anemia in other chronic diseases classified elsewhere; E88.09 Other disorders of plasma-protein metabolism, not elsewhere classified; R65.20 Severe sepsis without septic shock; Z66 Do not resuscitate
CPT/HCPCS: 31500; 36415; 36569; 36600; 71045; 74018; 76937; 80048; 80053; 80061; 80076; 80307; 81003; 82248; 82550; 82553; 82607; 82728; 82746; 82803; 82977; 83036; 83540; 83550; 83605; 83615; 83690; 83735; 83880; 84100; 84443; 84478; 84484; 84550; 85007; 85025; 85044; 85060; 85379; 85384; 85610; 85660; 85730; 86140; 86703; 86705; 86709; 86710; 86803; 86850; 86900; 86901; 87040; 87081; 87181; 87340; 87635; 93005; 94002; 94003; 94664; 96365; 96367; 96368; 96375; 99291; J0171; J1815; J7030; S5561